=== PATIENT | male | born 1965 | race Caucasian/White ===

== ENCOUNTER 2019-08-20 00:10 | Emergency (ER) | payer MEDICARE, MEDICAID, SELFPAY ==
--- NOTE | 2019-08-20 00:11 | ED_ITS ---
Entered by Madeline Cloud, acting as scribe for Siomara Chatman HPI - Chest Pain General: Chief Complaint: Chest Pain Stated Complaint: chronic back pain, chest pain, sob, etoh on baord Time Seen by Provider: 08/20/19 00:14 Source: patient Mode of arrival: EMS Limitations: no limitations History of Present Illness: HPI narrative: 54 yo m came to the er by [facility]. complaint: chest pain Associated symptoms: Deny abdominal pain, diaphoresis, dyspnea, fever(s), nausea, palpitations, syncope or vomiting Review of Systems General: Reports: other (negative unless marked) Const: Denies: fever, chills, body aches, fatigue, malaise or diaphoresis Eyes: Denies: change in vision or blurry vision ENMT: Denies: throat pain, painful swallowing, hoarseness, ear pain, ear discharge, Change in hearing or nasal discharge Card: Denies: chest pain, palpitations, irregular heart rhythm, syncope, pre- syncope, shortness of breath on exertion or shortness of breath when lying down Resp: Denies: shortness of breath, productive cough, non-productive cough, wheezing, coughing up blood or chest congestion GI: Denies: abdominal pain, nausea, vomiting, vomiting blood, coffee grounds in vomit, diarrhea, constipation, cramping, blood in stool or black tarry stool : Denies: flank pain, difficulty urinating, painful urination, urinary frequency, urinary urgency, decreased urine ouput, urinary incontinence or blood in urine Musc: Denies: neck pain, back pain, extremity pain, extremity swelling, joint pain, joint swelling, joint warmth or joint stiffness Skin/Breast: Denies: rash, skin tenderness or yellow skin Neuro: Denies: headache, numbness in extremities, weakness in extremities, changes in sensation, lack of coordination, difficulty walking, dizziness, vertigo or confusion Endo: Denies: excessive thirst, tired all the time, cold intolerance, excessive sweating, flushing or hot flashes Anirudh/Lymph: Denies: easy bruising, easy bleeding, petechiae or enlarged lymph nodes All/Imm: Denies: hives, throat swelling, tongue swelling, facial swelling or acute wheezing PFSH ED PFSH: Statuses (acute, chronic, etc) shown below reflect problem list status as previously entered and may not be historically accurate Social History Smoking and tobacco status: current every day smoker Physical Exam Const: COMMON NORMALS: no apparent distress, oriented x3, no limitations, healthy appearing and well nourished EXAM LIMITATIONS: no altered mental status GENERAL APPEARANCE: cooperative, well kempt and well developed ORIENTATION/CONSCIOUSNESS: Yes awake HENMT: COMMON NORMALS: normocephalic, head/scalp atraumatic, hearing grossly normal bilaterally, external ears normal, EAC's normal, external nose normal and moist oral mucous membranes HEAD & SCALP: normal to inspection, normocephalic and atraumatic FACE & SINUS: normal facial exam and face symmetric NOSE: external nose normal and nares normal EXTERNAL EAR: Yes external ears normal EXTERNAL AUDITORY CANAL: EAC's normal MOUTH: oral and palatal mucosa normal and tongue normal Eye: COMMON NORMALS: PERRL, EOMs intact bilaterally, conjunctivae normal and no scleral icterus GENERAL EYE: normal appearance of both eyes and normal light reflex CONJUNCTIVA: Yes conjunctivae normal SCLERA: sclerae normal CORNEA: Yes corneas normal PUPIL: Yes PERRL DIRECT OPHTHALMOSCOPY: Yes normal light reflex Neck/C-Spine: COMMON NORMALS: full ROM, no lymphadenopathy, supple, no meningeal signs and no JVD GENERAL: Yes normal visual inspection and Yes trachea midline CERVICAL SPINE: Yes cervical ROM normal Chest: COMMONS NORMALS: inspection of chest normal and palpation of chest normal Resp: COMMON NORMALS: normal respiratory effort, no retractions, no use of accessory muscles and clear to auscultation bilaterally EFFORT & INSPECTION: Yes able to speak in complete sentences AUSCULTATION: clear to auscultation bilaterally Cardio: COMMON NORMALS: no JVD, regular rate, regular rhythm, S1 normal heart sound, S2 normal heart sound, no gallops, no clicks, no murmurs and no rub JUGULAR VENOUS DISTENTION: no JVD RATE: regular rate RHYTHM: regular rhythm HEART SOUNDS: S1 normal and S2 normal GI: COMMON NORMALS: soft to palpation, non-tender, no hepatosplenomegaly and no masses INSPECTION: Yes normal to inspection PALPATION: Yes soft and Yes no hepatosplenomegaly : COMMON NORMALS: Yes no CVA tenderness BLADDER/KIDNEY EXAM: Yes no CVA tenderness Back/Pelvis: COMMON NORMALS: no CVA tenderness, thoracic and lumbar spine normal to inspection, no thoracic nor lumbar tenderness and thoraco-lumbar ROM normal Extremity: COMMON NORMALS: normal to inspection, full ROM, normal capillary refill, no joint enlargement, no clubbing, cyanosis or edema and no calf tenderness Neuro: COMMON NORMALS: oriented x3, CN's II-XII intact bilaterally, moves all extremities, no focal motor deficits and no sensory deficits noted MENINGEAL SIGNS: Yes no meningeal signs Psych: COMMON NORMALS: mental status grossly normal, thought process normal, cooperative, affect normal, speech normal and activity/motor behavior normal APPEARANCE: Yes well kempt SPEECH: Yes normal speech THOUGHT PROCESS: normal thought process Skin: COMMON NORMALS: no rashes or lesions noted, skin turgor normal, no jau ndice, no petechiae and no mottling GENERAL SKIN EXAM: no rashes or lesions noted and turgor normal Course Vital Signs: Vital signs: Vital Signs Temperature 97.8 F 08/20/19 00:15 Pulse Rate 78 08/20/19 01:23 Respiratory Rate 16 08/20/19 01:23 Blood Pressure 98/78 08/20/19 01:23 Pulse Oximetry 94 08/20/19 01:23 Discharge Plan Discharge Patient Disposition: Home, Self-Care Clinical Impression: Low back pain Qualifiers: Chronicity: chronic Back pain laterality: midline Sciatica presence: without sciatica Qualified Code(s): M54.5 - Low back pain Condition: Stable Discharge Orders: Discharge Order (Routine); Ordered 08/20/19 Ordered By: Shola Benjamin Discharge Diet: Usual diet Discharge Activity: Increase activity as tolerated Patient Instructions: Chronic Back Pain (ED) Activity Restrictions/Additional Instructions: Follow-up with medical provider as directed. Return to the ER or your medical provider if condition worsens. Please read and understand discharge instructions. If any questions ask please. Discharge Date/Time: 08/20/19 01:25 Coding Level of Care Code ED Oxyacetylene Torch Operator for Gabriel Mortensen The documentation recorded by the Pedro Luis mccarthy Stephanie Lyn, accurately reflects the service I personally performed and the decisions made by Lurdes lomeli Eli N Aug 20, 2019 00:10
[2019-08-20 00:15] VITALS: BP 76/48; PULSE 94; RESP 16; TEMP 36.6; O2SAT 96; BMI 30.8
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
[2019-08-20 00:36] VITALS: BP 98/68; PULSE 87; RESP 16; O2SAT 94
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
[2019-08-20] MEDS: ketorolac 60 mg/2 mL INJ IM (00:56)
[2019-08-20] MEDS: sodium chloride 0.9% 1,000 ML 999 ML IV (00:58)
[2019-08-20 01:23] VITALS: BP 98/78; PULSE 78; RESP 16; O2SAT 94
== END 2019-08-20 01:25 | disposition home or self-care (01) ==
PROVIDERS: Emergency Provider Nurse Practitioner Family
DX: G89.29 Other chronic pain (principal); M54.5 Low back pain; F17.210 Nicotine dependence, cigarettes, uncomplicated
CPT/HCPCS: 72100; 96372; 99282; 99284; J1885; J7030

== ENCOUNTER 2019-09-21 17:39 | Emergency (ER) | payer MEDICARE, MEDICAID, SELFPAY ==
[2019-09-21 18:21] VITALS: BP 130/89; PULSE 99; RESP 18; TEMP 37.2; O2SAT 97; BMI 29.1
--- NOTE | 2019-09-21 20:09 | ED_ITS ---
Entered by Veronica Hernadez, acting as scribe for Remedios Cruz MD Sep 21, 2019 17:39 HPI - General Adult General: Chief complaint: General Medical Stated complaint: FLU Time Seen by Provider: 09/21/19 20:09 Source: patient and RN notes reviewed Mode of arrival: EMS Limitations: no limitations History of Present Illness: HPI narrative: 54 yo male presents to ED with complaints of flu-like symptoms. The patient said he has been sick for 5-6 days with a cough and some vomiting. He said he can't see his PCP until next . complaint: flu-like symptoms Onset (ago): day(s) (-) Location: chest (congestion) Radiation: non-radiation Severity: mild Quality: other (congestion) Pain Consistency: intermittent Relieving factors: none Exacerbating factors: none Associated symptoms: Reports vomiting; Deny chest pain, dyspnea, headache(s) or rash Treatments prior to arrival: none Review of Systems Const: Denies: fever, chills, body aches or change in appetite Eyes: Denies: blurry vision or eye discomfort ENMT: Denies: throat pain or dental pain Card: Denies: chest pain Resp: Denies: shortness of breath GI: Reports: vomiting : Denies: painful urination Musc: Denies: neck pain or back pain Skin/Breast: Denies: rash Neuro: Denies: headache Psych: Denies: depression Anirudh/Lymph: Denies: easy bruising All/Imm: Denies: hives PFSH ED PFSH: Social History Smoking and tobacco status: current every day smoker Physical Exam Const: COMMON NORMALS: no apparent distress, oriented x3 and healthy appearing HENMT: COMMON NORMALS: normocephalic and head/scalp atraumatic HEAD & SCALP: normocephalic and atraumatic Eye: COMMON NORMALS: PERRL and EOMs intact bilaterally PUPIL: Yes PERRL Neck/C-Spine: COMMON NORMALS: full ROM and supple Chest: COMMONS NORMALS: inspection of chest normal and palpation of chest normal Resp: COMMON NORMALS: normal respiratory effort, no retractions, no use of accessory muscles and clear to auscultation bilaterally AUSCULTATION: clear to auscultation bilaterally Cardio: COMMON NORMALS: regular rate, regular rhythm and no murmurs RATE: regular rate RHYTHM: regular rhythm GI: COMMON NORMALS: normal to inspection, nondistended, normoactive bowel sounds, soft to palpation, non-tender and no masses PALPATION: Yes soft Extremity: COMMON NORMALS: normal to inspection and full ROM Neuro: COMMON NORMALS: oriented x3, moves all extremities and no focal motor deficits Psych: COMMON NORMALS: mental status grossly normal, thought process normal and cooperative THOUGHT PROCESS: normal thought process Skin: COMMON NORMALS: no rashes or lesions noted and no wounds GENERAL SKIN EXAM: no rashes or lesions noted Course Vital Signs: Vital signs: Vital Signs Temperature 98.9 F 09/21/19 18:21 Pulse Rate 99 09/21/19 18:21 Respiratory Rate 18 09/21/19 18:21 Blood Pressure 130/89 09/21/19 18:21 Pulse Oximetry 97 09/21/19 18:21 MDM - General Adult MDM Narrative: Medical decision making narrative: Sam presents with cough and congestion. This is likely viral in origin and x-ray here is negative. He has no signs of pneumonia. Flu is negative as well. Patient is stable for discharge and is to follow-up with primary care doctor in 3 to 5 days and return if worsening. Lab Data: Labs: Lab Results 09/21/19 Range/Units 20:10 Influenza Type A A g Negative (Negative) POC Influenza B Ag Negative (Negative) Imaging Data^: CXR: Attestation: I personally reviewed and interpreted this imaging study as follows: My impression: no acute abnormality Discharge Plan Discharge Patient Disposition: Home, Self-Care Clinical Impression: URI (upper respiratory infection) Qualifiers: URI type: unspecified URI Qualified Code(s): J06.9 - Acute upper respiratory infection, unspecified Condition: Stable Discharge Orders: Discharge Order (Routine); Ordered 09/21/19 Ordered By: Remedios Cruz Discharge Diet: Advance as tolerated Discharge Activity: Resume usual activity Patient Instructions: Upper Respiratory Infection (ED) Coding Level of Care Code ED [employer] Salesperson for Chg Fwd Exam Comprehensive The documentation recorded by the Satya mccarthy Valerie R, accurately reflects the service I personally performed and the decisions made by Anthony lomeli Korby, MD Sep 21, 2019 17:39
--- NOTE | 2019-09-21 20:14 | XRR_ITS ---
PROCEDURE INFORMATION: Exam: XR Chest, 2 Views Exam date and time: 09/21/2019 8:41 PM Age: 54 years old Clinical indication: Chest pain; Additional info: Cp TECHNIQUE: Imaging protocol: XR of the chest Views: 2 views. COMPARISON: CR Chest 1 [place] [id number] 03/09/2019 12:44 AM FINDINGS: Lungs: Still unremarkable. No consolidation. Pleural space: Unremarkable. No pleural effusion. No pneumothorax. Heart/Mediastinum: Still no cardiomegaly. Bones/joints: Old compression fractures. Degeneration of several discs. Only 11 ribs still evident bilaterally. One old right rib fracture still conceivable. XR/XR chest 2V* [id number] IMPRESSION: No acute findings.
[2019-09-21] MEDS: ondansetron 4 MG Tablet PO (20:38)
[2019-09-21 20:39] LABS: Influenza A by IFA Negative (Negative); Influenza B by IFA Negative (Negative)
[2019-09-21 20:41] VITALS: BP 111/74; PULSE 94; RESP 18; TEMP 36.7; O2SAT 98
--- NOTE | 2019-09-21 21:38 | PC.NURSE ---
RN reviewed and agrees with assessment
== END 2019-09-21 21:07 | disposition home or self-care (01) ==
PROVIDERS: Emergency Provider Emergency Medicine
DX: J06.9 Acute upper respiratory infection, unspecified (principal); F17.200 Nicotine dependence, unspecified, uncomplicated
CPT/HCPCS: 71046; 87804; 99281; 99283; Q0162

== ENCOUNTER 2019-09-28 15:36 | Inpatient (IN) | payer MEDICARE, MEDICAID, SELFPAY ==
[2019-09-28] VITALS (76 sets, daily range): BP systolic 72–143; BP diastolic 59–94; PULSE 100–118; RESP 2–38; TEMP 36.6–37.2; O2SAT 70–100; BMI 31.1; BMI 30.5
--- NOTE | 2019-09-28 15:39 | ED_ITS ---
Entered by Veronica Hernadez, acting as scribe for HPI - Altered Mental Status General: Chief Complaint: Altered Mental Status Stated Complaint: AMS Time Seen by Provider: 09/28/19 15:42 Source: patient, EMS and RN notes reviewed Mode of arrival: EMS Limitations: altered mental status History of Present Illness: HPI narrative: 54 yo male presents to ED via EMS and it is reported that the patient was unresponsive per spouse. The spouse told EMS the patient has been laying in bed for 3 days. EMS stated the patient opened his eyes and stood up for them. EMS states the patient's glucose was 171 and is O2 was low, in 60's. The patient can state where he is ([facility]) and what town he is in ([place]) and the year (2019). He denies taking too much medication. MD complaint: altered mental status Onset (ago): day(s) (3) Timing confirmed by: other (EMS) Severity: severe Consistency of symptoms: Waxing and Waning Context: change in medication Treatments prior to arrival: oxygen Review of Systems General: Reports: ROS unobtainable due to mental status PFSH ED PFSH: Social History Smoking and tobacco status: current every day smoker Physical Exam Const: EXAM LIMITATIONS: altered mental status GENERAL APPEARANCE: cooperative, disheveled, lethargic and ill appearing NUTRITIONAL APPEARANCE: overweight ORIENTATION/CONSCIOUSNESS: Yes awake, Yes oriented to person and Yes lethargic HENMT: COMMON NORMALS: normocephalic, head/scalp atraumatic, hearing grossly normal bilaterally, external ears normal, EAC's normal, external nose normal and moist oral mucous membranes HEAD & SCALP: normal to inspection, normocephalic and atraumatic FACE & SINUS: normal facial exam and face symmetric NOSE: external nose normal and nares normal EXTERNAL EAR: Yes external ears normal EXTERNAL AUDITORY CANAL: EAC's normal MOUTH: oral and palatal mucosa normal and tongue normal Eye: COMMON NORMALS: PERRL, EOMs intact bilaterally, conjunctivae normal and no scleral icterus GENERAL EYE: normal appearance of both eyes and normal light reflex CONJUNCTIVA: Yes conjunctivae normal SCLERA: sclerae normal CORNEA: Yes corneas normal PUPIL: Yes PERRL DIRECT OPHTHALMOSCOPY: Yes normal light reflex Neck/C-Spine: COMMON NORMALS: full ROM, no lymphadenopathy, supple, no meningeal signs and no JVD GENERAL: Yes normal visual inspection and Yes trachea midline CERVICAL SPINE: Yes cervical ROM normal Chest: COMMONS NORMALS: inspection of chest normal and palpation of chest normal Resp: COMMON NORMALS: normal respiratory effort, no retractions, no use of accessory muscles and clear to auscultation bilaterally EFFORT & INSPECTION: Yes able to speak in complete sentences AUSCULTATION: clear to auscultation bilaterally Cardio: COMMON NORMALS: no JVD, regular rate, regular rhythm, S1 normal heart sound, S2 normal heart sound, no gallops, no clicks, no murmurs and no rub JUGULAR VENOUS DISTENTION: no JVD RATE: regular rate RHYTHM: regular rhythm HEART SOUNDS: S1 normal and S2 normal GI: COMMON NORMALS: soft to palpation, non-tender, no hepatosplenomegaly and no masses INSPECTION: Yes normal to inspection PALPATION: Yes soft and Yes no hepatosplenomegaly : COMMON NORMALS: Yes no CVA tenderness BLADDER/KIDNEY EXAM: Yes no CVA tenderness Back/Pelvis: COMMON NORMALS: no CVA tenderness, thoracic and lumbar spine normal to inspection, no thoracic nor lumbar tenderness and thoraco-lumbar ROM normal Extremity: COMMON NORMALS: normal to inspection, full ROM, normal capillary refill, no joint enlargement, no clubbing, cyanosis or edema and no calf tenderness Neuro: JULIANNA COMA SCALE: document GCS findings Lambert coma scale eye opening: To sound Lambert coma scale verbal response: Confused Lambert coma scale motor response: Obey commands Lambert coma scale total score: 13 COMMON NORMALS: CN's II-XII intact bilaterally, moves all extremities, no focal motor deficits and no sensory deficits noted SENSORIUM/ORIENTATION: Yes oriented to person and Yes lethargic MENINGEAL SIGNS: Yes no meningeal signs Psych: COMMON NORMALS: mental status grossly normal, thought process normal, cooperative, affect normal, speech normal and activity/motor behavior normal SPEECH: Yes normal speech THOUGHT PROCESS: normal thought process Skin: COMMON NORMALS: no rashes or lesions noted, skin turgor normal, no jaund ice, no petechiae and no mottling GENERAL SKIN EXAM: no rashes or lesions noted and turgor normal Course Reevaluation(s): Reevaluation #1: Yakelin/significant other, is now adding to her story stating the patient has taken 60 Xanax tablets within the last 2 days. She states some of the tablets were .5mg and some were 1mg. Time: 16:23 Reevaluation #2: Discussed case with Dr Shafer who agrees to hold off on intubation for now. Time: 16:25 Vital Signs: Vital signs: Vital Signs Temperature 98.9 F 09/28/19 16:20 Pulse Rate 112 H 09/28/19 18:48 Respiratory Rate 16 09/28/19 18:48 Blood Pressure 122/75 09/28/19 18:48 Pulse Oximetry 100 09/28/19 18:48 MDM - Altered Mental Status MDM Narrative: Medical decision making narrative: Sam is a 54-year-old male well-known to me who presents to the ER with altered mental status. Further history was obtained from his who stated that he has new prescriptions of multiple types of sedative medications and he is also been taking medicines that are not prescribed to him such as Xanax. It is believed the patient may have overdosed on a combination of these medications. His CT does show though that he has infection which could be caused by aspiration. The patient is hemodynamically stable except for a mild tachycardia and has been given a sepsis fluid bolus and IV Zosyn and vancomycin. He is maintaining his oxygenation on BiPAP and is improving with his mentation. The case was reviewed in full with Dr. Shafer she is agreeable to admission. Lab Data: Attestation: I reviewed the patient's lab results. Labs: Lab Results 09/28/19 09/28/19 09/28/19 Range/Units 16:08 16:08 16:08 WBC 13.1 H (4.0-10.0) 10^3/ uL RBC 3.78 L (4.1-5.3) 10^6/u L Hgb 12.1 (11.7-16.6) g/dL Hct 37.8 L (42.0-52.0) % MCV 100.0 H (80-94) fL MCH 32.0 (28.0-34.0) pg MCHC 32.0 (30.0-36.0) g/dL RDW 13.4 (12.1-15.1) % Plt Count 176 (130-400) 10^3/c mm MPV 10.4 (7.4-10.4) fL Neut % (Auto) 87.9 % Lymph % (Auto) 4.6 % Nolan % (Auto) 6.0 % Eos % (Auto) 0.2 % Baso % (Auto) 0.4 % Neut # (Auto) 11.5 H (1.8-7.7) 10^3/u L Lymph # (Auto) 0.6 L (0.8-4.8) 10^3/u L Nolan # (Auto) 0.8 (0.2-0.9) 10^3/u L Eos # (Auto) 0.0 (0.0-0.8) 10^3/u L Baso # (Auto) 0.1 (0.0-0.1) 10^3/u L Nucleated RBC % (a uto) 0 % Nucleated RBCs # 0.0 /100WBC PT (10.5-13.3) SECO NDS INR (0.8-1.2) Specimen Type Sample Site ABG pH (7.35-7.45) ABG pCO2 (35-45) mmHg ABG pO2 (80.0-100.0) mmH g ABG HCO3 (22-26) mmol/L ABG Base Excess (-2.0-2.0) mmol/ L Jacques Test Hematocrit (42-52) % O2 Delivery Device FiO2 % Dials Supervisor ID Sodium 134 L (136-145) mmol/L Potassium 3.8 (3.5-5.1) mmol/L Chloride 97 L (98-107) mmol/L Carbon Dioxide 29 (22-29) mmol/L Anion Gap 11.8 (5-19) BUN 25 H (6-20) mg/dL Creatinine 1.1 (0.7-1.2) mg/dL GFR Calculation 69.2 L (90-130) mL/min Glucose 140 H (65-115) mg/dL POC Glucose (70-110) mg/dL Lactic Acid 1.5 (0.5-2.2) mmol/L Calcium 8.5 (8.5-10.5) mg/dL Magnesium 2.0 (1.7-2.3) mg/dL Total Bilirubin 0.4 (0.15-1.2) mg/dL AST 14 (0-40) U/L ALT 10 (0-41) U/L Alkaline Phosphata se 95 (40-130) IU/L Ammonia (16-60) umol/L Creatine Kinase 77 (39-308) U/L Troponin T Baselin e (0-15) ng/mL NT-Pro-B Natriuret Pep 801 H (0-125) pg/mL Total Protein 5.8 L (6.6-8.7) g/dL Albumin 3.3 L (3.5-5.2) g/dL Globulin 2.5 (1.3-4.6) g/dL Lipase 9 L (13-60) U/L Urine Color (Yellow) Urine Appearance (CLEAR) Urine pH (5-7) Ur Specific Gravit y (1.005-1.030) Urine Protein (Negative) Urine Glucose (UA) (Normal) Urine Ketones (Negative) Urine Blood (Negative) Urine Nitrate (Negative) Urine Bilirubin (NEGATIVE) Urine Urobilinogen (Negative) mg/dL Ur Leukocyte Bonnie ase (Negative) Urine RBC (0-2) /hpf Urine WBC (0-5) /hpf Ur Squamous Epith Cells (0-5) Urine Bacteria (NONE) Urine Mucus Salicylates < 0.3 L (3-10) mg/dL Urine Opiates Scre en (Negative) ng/mL Acetaminophen < 5.0 L (10-30) ug/mL Ur Barbiturates Sc reen (Negative) ng/mL Phenytoin 0.8 L (10-20) ug/mL Valproic Acid 2.8 L (50-100) mcg/mL Carbamazepine 2.0 L (4.0-12.0) ug/mL Ur Phencyclidine S crn (Negative) ng/mL Ur Amphetamines Sc reen (Negative) ng/mL U Benzodiazepines Scrn (Negative) ng/mL [place] (0.6-1.2) mmol/L Urine Cocaine Scre en (Negative) ng/mL U Marijuana (THC) Screen (Negative) ng/mL Ethyl Alcohol < 10 (0-10) mg/dL Serum Ketones (Negative) Influenza Type A A g (Negative) POC Influenza B Ag (Negative) 09/28/19 09/28/19 09/28/19 Range/Units 16:08 16:08 16:08 WBC (4.0-10.0) 10^3/ uL RBC (4.1-5.3) 10^6/u L Hgb (11.7-16.6) g/dL Hct (42.0-52.0) % MCV (80-94) fL MCH (28.0-34.0) pg MCHC (30.0-36.0) g/dL RDW (12.1-15.1) % Plt Count (130-400) 10^3/c mm MPV (7.4-10.4) fL Neut % (Auto) % Lymph % (Auto) % Nolan % (Auto) % Eos % (Auto) % Baso % (Auto) % Neut # (Auto) (1.8-7.7) 10^3/u L Lymph # (Auto) (0.8-4.8) 10^3/u L Nolan # (Auto) (0.2-0.9) 10^3/u L Eos # (Auto) (0.0-0.8) 10^3/u L Baso # (Auto) (0.0-0.1) 10^3/u L Nucleated RBC % (a uto) % Nucleated RBCs # /100WBC PT 13.30 (10.5-13.3) SECO NDS INR 0.98 (0.8-1.2) Specimen Type Sample Site ABG pH (7.35-7.45) ABG pCO2 (35-45) mmHg ABG pO2 (80.0-100.0) mmH g ABG HCO3 (22-26) mmol/L ABG Base Excess (-2.0-2.0) mmol/ L Jacques Test Hematocrit (42-52) % O2 Delivery Device FiO2 % Dials Supervisor ID Sodium (136-145) mmol/L Potassium (3.5-5.1) mmol/L Chloride (98-107) mmol/L Carbon Dioxide (22-29) mmol/L Anion Gap (5-19) BUN (6-20) mg/dL Creatinine (0.7-1.2) mg/dL GFR Calculation (90-130) mL/min Glucose (65-115) mg/dL POC Glucose (70-110) mg/dL Lactic Acid (0.5-2.2) mmol/L Calcium (8.5-10.5) mg/dL Magnesium (1.7-2.3) mg/dL Total Bilirubin (0.15-1.2) mg/dL AST (0-40) U/L ALT (0-41) U/L Alkaline Phosphata se (40-130) IU/L Ammonia 21 (16-60) umol/L Creatine Kinase (39-308) U/L Troponin T Baselin e (0-15) ng/mL NT-Pro-B Natriuret Pep (0-125) pg/mL Total Protein (6.6-8.7) g/dL Albumin (3.5-5.2) g/dL Globulin (1.3-4.6) g/dL Lipase (13-60) U/L Urine Color (Yellow) Urine Appearance (CLEAR) Urine pH (5-7) Ur Specific Gravit y (1.005-1.030) Urine Protein (Negative) Urine Glucose (UA) (Normal) Urine Ketones (Negative) Urine Blood (Negative) Urine Nitrate (Negative) Urine Bilirubin (NEGATIVE) Urine Urobilinogen (Negative) mg/dL Ur Leukocyte Bonnie ase (Negative) Urine RBC (0-2) /hpf Urine WBC (0-5) /hpf Ur Squamous Epith Cells (0-5) Urine Bacteria (NONE) Urine Mucus Salicylates (3-10) mg/dL Urine Opiates Scre en (Negative) ng/mL Acetaminophen (10-30) ug/mL Ur Barbiturates Sc reen (Negative) ng/mL Phenytoin (10-20) ug/mL Valproic Acid (50-100) mcg/mL Carbamazepine (4.0-12.0) ug/mL Ur Phencyclidine S crn (Negative) ng/mL Ur Amphetamines Sc reen (Negative) ng/mL U Benzodiazepines Scrn (Negative) ng/mL [place] (0.6-1.2) mmol/L Urine Cocaine Scre en (Negative) ng/mL U Marijuana (THC) Screen (Negative) ng/mL Ethyl Alcohol (0-10) mg/dL Serum Ketones Negative (Negative) Influenza Type A A g (Negative) POC Influenza B Ag (Negative) 09/28/19 09/28/19 09/28/19 Range/Units 16:08 16:08 16:10 WBC (4.0-10.0) 10^3/ uL RBC (4.1-5.3) 10^6/u L Hgb (11.7-16.6) g/dL Hct (42.0-52.0) % MCV (80-94) fL MCH (28.0-34.0) pg MCHC (30.0-36.0) g/dL RDW (12.1-15.1) % Plt Count (130-400) 10^3/c mm MPV (7.4-10.4) fL Neut % (Auto) % Lymph % (Auto) % Nolan % (Auto) % Eos % (Auto) % Baso % (Auto) % Neut # (Auto) (1.8-7.7) 10^3/u L Lymph # (Auto) (0.8-4.8) 10^3/u L Nolan # (Auto) (0.2-0.9) 10^3/u L Eos # (Auto) (0.0-0.8) 10^3/u L Baso # (Auto) (0.0-0.1) 10^3/u L Nucleated RBC % (a uto) % Nucleated RBCs # /100WBC PT (10.5-13.3) SECO NDS INR (0.8-1.2) Specimen Type Arterial Sample Site Radial, right ABG pH 7.33 L (7.35-7.45) ABG pCO2 53.8 H (35-45) mmHg ABG pO2 44.5 L (80.0-100.0) mmH g ABG HCO3 28.3 H (22-26) mmol/L ABG Base Excess 1.3 (-2.0-2.0) mmol/ L Jacques Test Pos Hematocrit 40.1 L (42-52) % O2 Delivery Device None FiO2 21.0 % Dials Supervisor ID ed Sodium (136-145) mmol/L Potassium (3.5-5.1) mmol/L Chloride (98-107) mmol/L Carbon Dioxide (22-29) mmol/L Anion Gap (5-19) BUN (6-20) mg/dL Creatinine (0.7-1.2) mg/dL GFR Calculation (90-130) mL/min Glucose (65-115) mg/dL POC Glucose (70-110) mg/dL Lactic Acid (0.5-2.2) mmol/L Calcium (8.5-10.5) mg/dL Magnesium (1.7-2.3) mg/dL Total Bilirubin (0.15-1.2) mg/dL AST (0-40) U/L ALT (0-41) U/L Alkaline Phosphata se (40-130) IU/L Ammonia (16-60) umol/L Creatine Kinase (39-308) U/L Troponin T Baselin e 12 (0-15) ng/mL NT-Pro-B Natriuret Pep (0-125) pg/mL Total Protein (6.6-8.7) g/dL Albumin (3.5-5.2) g/dL Globulin (1.3-4.6) g/dL Lipase (13-60) U/L Urine Color (Yellow) Urine Appearance (CLEAR) Urine pH (5-7) Ur Specific Gravit y (1.005-1.030) Urine Protein (Negative) Urine Glucose (UA) (Normal) Urine Ketones (Negative) Urine Blood (Negative) Urine Nitrate (Negative) Urine Bilirubin (NEGATIVE) Urine Urobilinogen (Negative) mg/dL Ur Leukocyte Bonnie ase (Negative) Urine RBC (0-2) /hpf Urine WBC (0-5) /hpf Ur Squamous Epith Cells (0-5) Urine Bacteria (NONE) Urine Mucus Salicylates (3-10) mg/dL Urine Opiates Scre en (Negative) ng/mL Acetaminophen (10-30) ug/mL Ur Barbiturates Sc reen (Negative) ng/mL Phenytoin (10-20) ug/mL Valproic Acid (50-100) mcg/mL Carbamazepine (4.0-12.0) ug/mL Ur Phencyclidine S crn (Negative) ng/mL Ur Amphetamines Sc reen (Negative) ng/mL U Benzodiazepines Scrn (Negative) ng/mL [place] 0.1 L (0.6-1.2) mmol/L Urine Cocaine Scre en (Negative) ng/mL U Marijuana (THC) Screen (Negative) ng/mL Ethyl Alcohol (0-10) mg/dL Serum Ketones (Negative) Influenza Type A A g (Negative) POC Influenza B Ag (Negative) 09/28/19 09/28/19 09/28/19 Range/Units 16:28 16:28 16:28 WBC (4.0-10.0) 10^3/ uL RBC (4.1-5.3) 10^6/u L Hgb (11.7-16.6) g/dL Hct (42.0-52.0) % MCV (80-94) fL MCH (28.0-34.0) pg MCHC (30.0-36.0) g/dL RDW (12.1-15.1) % Plt Count (130-400) 10^3/c mm MPV (7.4-10.4) fL Neut % (Auto) % Lymph % (Auto) % Nolan % (Auto) % Eos % (Auto) % Baso % (Auto) % Neut # (Auto) (1.8-7.7) 10^3/u L Lymph # (Auto) (0.8-4.8) 10^3/u L Nolan # (Auto) (0.2-0.9) 10^3/u L Eos # (Auto) (0.0-0.8) 10^3/u L Baso # (Auto) (0.0-0.1) 10^3/u L Nucleated RBC % (a uto) % Nucleated RBCs # /100WBC PT (10.5-13.3) SECO NDS INR (0.8-1.2) Specimen Type Sample Site ABG pH (7.35-7.45) ABG pCO2 (35-45) mmHg ABG pO2 (80.0-100.0) mmH g ABG HCO3 (22-26) mmol/L ABG Base Excess (-2.0-2.0) mmol/ L Jacques Test Hematocrit (42-52) % O2 Delivery Device FiO2 % Dials Supervisor ID Sodium (136-145) mmol/L Potassium (3.5-5.1) mmol/L Chloride (98-107) mmol/L Carbon Dioxide (22-29) mmol/L Anion Gap (5-19) BUN (6-20) mg/dL Creatinine (0.7-1.2) mg/dL GFR Calculation (90-130) mL/min Glucose (65-115) mg/dL POC Glucose (70-110) mg/dL Lactic Acid (0.5-2.2) mmol/L Calcium (8.5-10.5) mg/dL Magnesium (1.7-2.3) mg/dL Total Bilirubin (0.15-1.2) mg/dL AST (0-40) U/L ALT (0-41) U/L Alkaline Phosphata se (40-130) IU/L Ammonia (16-60) umol/L Creatine Kinase (39-308) U/L Troponin T Baselin e (0-15) ng/mL NT-Pro-B Natriuret Pep (0-125) pg/mL Total Protein (6.6-8.7) g/dL Albumin (3.5-5.2) g/dL Globulin (1.3-4.6) g/dL Lipase (13-60) U/L Urine Color Yellow (Yellow) Urine Appearance Clear (CLEAR) Urine pH 5.0 (5-7) Ur Specific Gravit y 1.020 (1.005-1.030) Urine Protein Neg (Negative) Urine Glucose (UA) Norm (Normal) Urine Ketones Negative (Negative) Urine Blood Neg (Negative) Urine Nitrate Negative (Negative) Urine Bilirubin Neg (NEGATIVE) Urine Urobilinogen Norm (Negative) mg/dL Ur Leukocyte Bonnie ase Negative (Negative) Urine RBC None (0-2) /hpf Urine WBC None (0-5) /hpf Ur Squamous Epith Cells 0-4 H (0-5) Urine Bacteria Trace (NONE) Urine Mucus 1+ Salicylates (3-10) mg/dL Urine Opiates Scre en Negative (Negative) ng/mL Acetaminophen (10-30) ug/mL Ur Barbiturates Sc reen Negative (Negative) ng/mL Phenytoin (10-20) ug/mL Valproic Acid (50-100) mcg/mL Carbamazepine (4.0-12.0) ug/mL Ur Phencyclidine S crn Negative (Negative) ng/mL Ur Amphetamines Sc reen Negative (Negative) ng/mL U Benzodiazepines Scrn Positive H (Negative) ng/mL [place] (0.6-1.2) mmol/L Urine Cocaine Scre en Negative (Negative) ng/mL U Marijuana (THC) Screen Negative (Negative) ng/mL Ethyl Alcohol (0-10) mg/dL Serum Ketones (Negative) Influenza Type A A g Negative (Negative) POC Influenza B Ag Negative (Negative) 09/28/19 09/28/19 09/28/19 Range/Units 16:48 17:06 17:30 WBC (4.0-10.0) 10^3/ uL RBC (4.1-5.3) 10^6/u L Hgb (11.7-16.6) g/dL Hct (42.0-52.0) % MCV (80-94) fL MCH (28.0-34.0) pg MCHC (30.0-36.0) g/dL RDW (12.1-15.1) % Plt Count (130-400) 10^3/c mm MPV (7.4-10.4) fL Neut % (Auto) % Lymph % (Auto) % Nolan % (Auto) % Eos % (Auto) % Baso % (Auto) % Neut # (Auto) (1.8-7.7) 10^3/u L Lymph # (Auto) (0.8-4.8) 10^3/u L Nolan # (Auto) (0.2-0.9) 10^3/u L Eos # (Auto) (0.0-0.8) 10^3/u L Baso # (Auto) (0.0-0.1) 10^3/u L Nucleated RBC % (a uto) % Nucleated RBCs # /100WBC PT (10.5-13.3) SECO NDS INR (0.8-1.2) Specimen Type Arterial Arterial Sample Site Radial, right Radial, left ABG pH 7.34 L 7.32 L (7.35-7.45) ABG pCO2 48.2 H 50.6 H (35-45) mmHg ABG pO2 54.0 L 66.5 L (80.0-100.0) mmH g ABG HCO3 25.8 26.1 H (22-26) mmol/L ABG Base Excess -0.5 -0.6 (-2.0-2.0) mmol/ L Jacques Test Pos Pos Hematocrit 39.4 L 38.4 L (42-52) % O2 Delivery Device Bipap Bipap FiO2 24.0 60.0 % Dials Supervisor ID hin ed Sodium (136-145) mmol/L Potassium (3.5-5.1) mmol/L Chloride (98-107) mmol/L Carbon Dioxide (22-29) mmol/L Anion Gap (5-19) BUN (6-20) mg/dL Creatinine (0.7-1.2) mg/dL GFR Calculation (90-130) mL/min Glucose (65-115) mg/dL POC Glucose 128 (70-110) mg/dL Lactic Acid (0.5-2.2) mmol/L Calcium (8.5-10.5) mg/dL Magnesium (1.7-2.3) mg/dL Total Bilirubin (0.15-1.2) mg/dL AST (0-40) U/L ALT (0-41) U/L Alkaline Phosphata se (40-130) IU/L Ammonia (16-60) umol/L Creatine Kinase (39-308) U/L Troponin T Baselin e (0-15) ng/mL NT-Pro-B Natriuret Pep (0-125) pg/mL Total Protein (6.6-8.7) g/dL Albumin (3.5-5.2) g/dL Globulin (1.3-4.6) g/dL Lipase (13-60) U/L Urine Color (Yellow) Urine Appearance (CLEAR) Urine pH (5-7) Ur Specific Gravit y (1.005-1.030) Urine Protein (Negative) Urine Glucose (UA) (Normal) Urine Ketones (Negative) Urine Blood (Negative) Urine Nitrate (Negative) Urine Bilirubin (NEGATIVE) Urine Urobilinogen (Negative) mg/dL Ur Leukocyte Bonnie ase (Negative) Urine RBC (0-2) /hpf Urine WBC (0-5) /hpf Ur Squamous Epith Cells (0-5) Urine Bacteria (NONE) Urine Mucus Salicylates (3-10) mg/dL Urine Opiates Scre en (Negative) ng/mL Acetaminophen (10-30) ug/mL Ur Barbiturates Sc reen (Negative) ng/mL Phenytoin (10-20) ug/mL Valproic Acid (50-100) mcg/mL Carbamazepine (4.0-12.0) ug/mL Ur Phencyclidine S crn (Negative) ng/mL Ur Amphetamines Sc reen (Negative) ng/mL U Benzodiazepines Scrn (Negative) ng/mL [place] (0.6-1.2) mmol/L Urine Cocaine Scre en (Negative) ng/mL U Marijuana (THC) Screen (Negative) ng/mL Ethyl Alcohol (0-10) mg/dL Serum Ketones (Negative) Influenza Type A A g (Negative) POC Influenza B Ag (Negative) Imaging Data^: CT Head: Radiologist's impression: [address] [address] [address] Scan Report Signed Patient: Sam Marroquin #: [id number] : 1965Acct#:[id number] Age/Sex: 54 / MADM Date: 09/28/19 Loc: ERRoom/Bed: Attending Dr: Ordering Provider/Ordering MD: Siomara Chatman DO Date of Service: 09/28/19 Procedure(s): CT head wo con* [id number] Accession Number(s): [id number] Report Number: [id number] PROCEDURE INFORMATION: Exam: CT Head Without Contrast Exam date and time: 09/28/2019 4:30 PM Age: 54 years old Clinical indication: Altered mental status/memory loss; Additional info: Ruiz/ams non compliant patient TECHNIQUE: Imaging protocol: Computed tomography of the head without contrast. Total DLP: 721.7 mGy-cm Radiation optimization: All CT scans at this facility use at least one of these dose optimization techniques: automated exposure control; mA and/or kV adjustment per patient size (includes targeted exams where dose is matched to clinical indication); or iterative reconstruction. COMPARISON: CT head wo con* [id number] 02/26/2019 10:51 PM FINDINGS: Brain: Normal. No hemorrhage. Unremarkable white matter. No mass effect. Ventricles: Normal. No ventriculomegaly. Bones/joints: Unremarkable. No acute fracture. Sinuses: Evidence of mild chronic ethmoid and right maxillary sinusitis. No fluid levels. Mastoid air cells: Visualized mastoid air cells are well aerated. Soft tissues: Unremarkable. CT/CT head wo con* [id number] IMPRESSION: No acute intracranial abnormality. Radiation Dose CTDIVOL = (mGy): DLP = 721.7 (mGy-cm) Dictated By:Aric Dimas Signed By:Reilly Dimas Date/Time:09/28/19 1708 DD/ CTA Chest: Radiologist's impression: [address] [place] [address] CT Scan Report Signed Patient: Sam Marroquin #: [id number] : 1965Acct#:[id number] Age/Sex: 54 / MADM Date: 09/28/19 Loc: ERRoom/Bed: Attending Dr: Ordering Provider/Ordering MD: Siomara Chatman DO Date of Service: 09/28/19 Procedure(s): CT angio chest PE protcl [id number] Accession Number(s): [id number] Report Number: [id number] PROCEDURE INFORMATION: Exam: CT Angiography Chest With Contrast Exam date and time: 09/28/2019 4:30 PM Age: 54 years old Clinical indication: Shortness of breath; Additional info: Dyspnea, hypoxia TECHNIQUE: Imaging protocol: Computed tomographic angiography of the chest with intravenous contrast. 3D rendering: MIP and/or 3D reconstructed images were created by the technologist. Total DLP: 580.92 mGy-cm Radiation optimization: All CT scans at this facility use at least one of these dose optimization techniques: automated exposure control; mA and/or kV adjustment per patient size (includes targeted exams where dose is matched to clinical indication); or iterative reconstruction. Contrast material: OMNI 350; Contrast volume: 95 ml; Contrast route: RT AC; COMPARISON: CR XR chest 1V portable [id number] 09/28/2019 3:40 PM FINDINGS: Pulmonary arteries: No definitive evidence for pulmonary embolism this evaluation. Aorta: Thoracic aorta is nonaneurysmal. Lungs: Assessment of the lungs reveals patchy diffuse bilateral segmental and subsegmental mixed ground-glass interstitial and alveolar airspace disease of active pneumonitis/pneumonia. Greatest consolidation bilateral lower lobes. Pleural space: Scant bilateral pleural effusions. Heart: Unremarkable. No cardiomegaly. No pericardial effusion. Lymph nodes: Few marginally prominent aortopulmonic, pretracheal, anterior mediastinal, and hilar lymph nodes most likely reactive. Largest node in the pretracheal space measures 17 mm. Bones/joints: Unremarkable. No acute fracture. Soft tissues: Unremarkable. Other findings: Quantum mottle artifact limits detail assessment. Limited assessment of the upper abdomen and contents unremarkable. CT/CT angio chest PE protcl [id number] IMPRESSION: 1. No definitive evidence for pulmonary embolism this evaluation. 2. Bilateral pneumonitis/pneumonia greatest involvement bilateral lower lobes. 3. Reactive mediastinal and hilar lymph nodes. 4. Quantum mottle artifact limits detail assessment. Radiation Dose CTDIVOL = (mGy): DLP = 580.92 (mGy-cm) Dictated By:Aric Dimas Signed By:Aric DimasSigned Date/Time:09/28/19 1722 DD/ CXR: My impression: Diffuse infiltrates. Cardiomegaly. EKG Data^: EKG 1: Attestation: I personally reviewed and interpreted this EKG as follows: EKG interpretation date: 09/28/19 EKG interpretation time: 15:53 Interpretation: Sinus tachycardia at 102 beats a minute, left axis deviation, incomplete right bundle branch block, left anterior physical block, nonspecific ST and T wave changes. Similar to previous. Discharge Plan Discharge Patient Disposition: Admitted As Inpatient Admit Provider: Nai Shafer Clinical Impression: Altered mental status Qualifiers: Altered mental status type: somnolence Qualified Code(s): R40.0 - Somnolence Sepsis Qualifiers: Sepsis type: sepsis due to unspecified organism Sepsis acute organ dysfunction status: with acute organ dysfunction Severe sepsis acute organ dysfunction type: acute respiratory failure Acute respiratory failure type: with hypoxia Severe sepsis shock status: without septic shock Qualified Code(s): A41.9 - Sepsis, unspecified organism Pneumonia Qualifiers: Pneumonia type: due to unspecified organism Laterality: bilateral Lung location: unspecified part of lung Qualified Code(s): J18.9 - Pneumonia, unspecified organism Condition: Stable Discharge Date/Time: 09/28/19 18:49 Coding Level of Care Code ED Conversion Developer for Chg Fwd Exam Problem Focused The documentation recorded by the Satya mccarthy Valerie R, accurately reflects the service I personally performed and the decisions made by Lurdes lomeli Eli N Sep 28, 2019 15:36
--- NOTE | 2019-09-28 15:42 | CTR_ITS ---
PROCEDURE INFORMATION: Exam: CT Head Without Contrast Exam date and time: 09/28/2019 4:30 PM Age: 54 years old Clinical indication: Altered mental status/memory loss; Additional info: Ruiz/ams non compliant patient TECHNIQUE: Imaging protocol: Computed tomography of the head without contrast. Total DLP: 721.7 mGy-cm Radiation optimization: All CT scans at this facility use at least one of these dose optimization techniques: automated exposure control; mA and/or kV adjustment per patient size (includes targeted exams where dose is matched to clinical indication); or iterative reconstruction. COMPARISON: CT head wo con* [id number] 02/26/2019 10:51 PM FINDINGS: Brain: Normal. No hemorrhage. Unremarkable white matter. No mass effect. Ventricles: Normal. No ventriculomegaly. Bones/joints: Unremarkable. No acute fracture. Sinuses: Evidence of mild chronic ethmoid and right maxillary sinusitis. No fluid levels. Mastoid air cells: Visualized mastoid air cells are well aerated. Soft tissues: Unremarkable. CT/CT head wo con* [id number] IMPRESSION: No acute intracranial abnormality. Radiation Dose CTDIVOL = (mGy): DLP = 721.7 (mGy-cm)
--- NOTE | 2019-09-28 15:42 | XR_ITS ---
WS: [id number] XR chest 1V portable [id number] REASON FOR EXAM: cough FINDINGS: The right lung shows a groundglass configuration consistent with a viral pneumonia. The heart is not enlarged. The hilum and apices normal. No osseous abnormalities. XR/XR chest 1V portable [id number] IMPRESSION: Findings consistent with right viral pneumonia.
[2019-09-28] MEDS: ipratropium-albuterol 3 mL Neb 9 ML INHALATION (16:05)
[2019-09-28] MEDS: naloxone 0.4 mg/ml SDV ×2 (16:11)
[2019-09-28 16:21] LABS: ABG PCO2 53.8 mmHg (35-45); ABG PH Result 7.33 (7.35-7.45); Arterial Blood Gas Hematocrit 40.1 % (42-52); Base Excess ABG 1.3 mmol/L (-2.0-2.0); Blood Gas Allen Test Pos; Blood Gas Sample Site Radial, right; Blood Gas Sample Type Arterial; HCO3 ABG 28.3 mmol/L (22-26); PO2 ABG 44.5 mmHg (80.0-100.0)
--- NOTE | 2019-09-28 16:24 | CTR_ITS ---
PROCEDURE INFORMATION: Exam: CT Angiography Chest With Contrast Exam date and time: 09/28/2019 4:30 PM Age: 54 years old Clinical indication: Shortness of breath; Additional info: Dyspnea, hypoxia TECHNIQUE: Imaging protocol: Computed tomographic angiography of the chest with intravenous contrast. 3D rendering: MIP and/or 3D reconstructed images were created by the technologist. Total DLP: 580.92 mGy-cm Radiation optimization: All CT scans at this facility use at least one of these dose optimization techniques: automated exposure control; mA and/or kV adjustment per patient size (includes targeted exams where dose is matched to clinical indication); or iterative reconstruction. Contrast material: OMNI 350; Contrast volume: 95 ml; Contrast route: RT AC; COMPARISON: CR XR chest 1V portable [id number] 09/28/2019 3:40 PM FINDINGS: Pulmonary arteries: No definitive evidence for pulmonary embolism this evaluation. Aorta: Thoracic aorta is nonaneurysmal. Lungs: Assessment of the lungs reveals patchy diffuse bilateral segmental and subsegmental mixed ground-glass interstitial and alveolar airspace disease of active pneumonitis/pneumonia. Greatest consolidation bilateral lower lobes. Pleural space: Scant bilateral pleural effusions. Heart: Unremarkable. No cardiomegaly. No pericardial effusion. Lymph nodes: Few marginally prominent aortopulmonic, pretracheal, anterior mediastinal, and hilar lymph nodes most likely reactive. Largest node in the pretracheal space measures 17 mm. Bones/joints: Unremarkable. No acute fracture. Soft tissues: Unremarkable. Other findings: Quantum mottle artifact limits detail assessment. Limited assessment of the upper abdomen and contents unremarkable. CT/CT angio chest PE protcl [id number] IMPRESSION: 1. No definitive evidence for pulmonary embolism this evaluation. 2. Bilateral pneumonitis/pneumonia greatest involvement bilateral lower lobes. 3. Reactive mediastinal and hilar lymph nodes. 4. Quantum mottle artifact limits detail assessment. Radiation Dose CTDIVOL = (mGy): DLP = 580.92 (mGy-cm)
[2019-09-28 16:30] LABS: Basophils # 0.1 10^3/uL (0.0-0.1); Basophils % 0.4 %; Eosinophils % 0.2 %; Hematocrit 37.8 % (42.0-52.0); Hemoglobin 12.1 g/dL (11.7-16.6); Lymphocytes # 0.6 10^3/uL (0.8-4.8); Lymphocytes % 4.6 %; Mean Platelet Volume 10.4 fL (7.4-10.4); Monocytes # 0.8 10^3/uL (0.2-0.9); Neutrophils # 11.5 10^3/uL (1.8-7.7); Neutrophils % 87.9 %; Nucleated Red Blood Cells % 0 %; Platelet Count 176 10^3/cmm (130-400); Red Blood Count 3.78 10^6/uL (4.1-5.3); Red Cell Distribution Width 13.4 % (12.1-15.1); White Blood Count 13.1 10^3/uL (4.0-10.0)
[2019-09-28] MEDS: sodium chloride 0.9% 1,000 ML 100 ML IV ×2 (16:31→19:42)
[2019-09-28] MEDS: ondansetron 2 mg/ML SDV 2 mL 4 MG IVP (16:31)
[2019-09-28] MEDS: naloxone 0.4 mg/ml SDV IVP ×2 (16:32→17:12)
[2019-09-28] MEDS: sodium chloride 0.9% 1,000 ML 999 ML IV (16:35)
[2019-09-28 16:37] LABS: Ketone (Acetest) Serum Negative (Negative)
[2019-09-28 16:38] LABS: INR 0.98 (0.8-1.2)
[2019-09-28] MEDS: piperacillin-tazobactam 3.375 GM in sodium chloride 0.9% (plus) 50 ML IV (16:40)
[2019-09-28 16:45] LABS: Ammonia 21 umol/L (16-60); Lactic Sepsis W/Reflex 1.5 mmol/L (0.5-2.2)
[2019-09-28 16:49] LABS: Bilirubin Urine Neg (NEGATIVE); Blood Urine Neg (Negative); Glucose Urine UA Norm (Normal); Ketones Urine Negative (Negative); Leukocyte Esterase Urine Negative (Negative); Nitrate Urine Negative (Negative); Protein Urine Neg (Negative); Urine Appearance Clear (CLEAR); Urine Color Yellow (Yellow); Urobilinogen Urine Norm (Negative)
[2019-09-28 16:49] LABS: ABG PCO2 48.2 mmHg (35-45); ABG PH Result 7.34 (7.35-7.45); Arterial Blood Gas Hematocrit 39.4 % (42-52); Base Excess ABG -0.5 mmol/L (-2.0-2.0); Blood Gas Allen Test Pos; Blood Gas Sample Site Radial, right; Blood Gas Sample Type Arterial; HCO3 ABG 25.8 mmol/L (22-26); Oxygen Device BIPAP
[2019-09-28 16:55] LABS: Alanine Aminotransferase 10 U/L (0-41); Albumin Level 3.3 g/dL (3.5-5.2); Alkaline Phosphatase 95 IU/L (40-130); Anion Gap 11.8 (5-19); Aspartate Amino Transferase 14 U/L (0-40); Blood Urea Nitrogen 25 mg/dL (6-20); Calcium 8.5 mg/dL (8.5-10.5); Carbon Dioxide 29 mmol/L (22-29); Chloride 97 mmol/L (98-107); Creatine Phosphokinase 77 U/L (39-308); Globulin 2.5 g/dL (1.3-4.6); Glomerular Filtration Rate 69.2 mL/min (90-130); Glucose 140 mg/dL (65-115); Lipase 9 U/L (13-60); NT Pro B Type Natriuretic Pept 801 pg/mL (0-125); Phenytoin Dilantin 0.8 ug/mL (10-20); Potassium 3.8 mmol/L (3.5-5.1); Sodium 134 mmol/L (136-145); Total Bilirubin 0.4 mg/dL (0.15-1.2); Total Protein 5.8 g/dL (6.6-8.7); Valproic Acid Level 2.8 mcg/mL (50-100)
[2019-09-28 16:57] LABS: Amphetamines Screen Urine Negative (Negative); Barbiturates Screen Urine Negative (Negative); Benzodiazepines Screen Urine Positive (Negative); Cocaine Screen Urine Negative (Negative); Opiate Screen Urine Negative (Negative); PCP Screen Urine Negative (Negative); THC Screen Urine Negative (Negative)
[2019-09-28 16:59] LABS: Acetaminophen < 5.0 ug/mL (10-30); Alcohol Level < 10 mg/dL (0-10); Salicylate < 0.3 mg/dL (3-10)
[2019-09-28] MEDS: iohexol 350 mg/mL 100 mL Btl IV (16:59)
[2019-09-28 17:00] LABS: Add Urine Culture? No; Bacteria Urine TRACE; Mucus Urine 1+; Squamous Epithelial Cell Urine 0-4 (0-5)
--- NOTE | 2019-09-28 17:08 | ECG_ITS ---
Measurements Intervals [place] Rate: 110 P: 58 CA: 132 QRS: -49 QRSD: 109 T: 54 QT: 340 QTc: 460 SINUS TACHYCARDIA INCOMPLETE RIGHT BUNDLE BRANCH BLOCK [90+ ms QRS DURATION, TERMINAL R IN V1/V2, 40+ ms S IN I/aVL/V4/V5/V6] LEFT ANTERIOR FASCICULAR BLOCK [QRS AXIS <= -45, QR IN I, RS IN II] Compared to ECG 03/09/2019 00:13:49 Incomplete right bundle-branch block now present Sinus rhythm no longer present Electronically Signed On 09-28-2019 19:05:31 VOLUNTEER SERVICES ASSISTANT by Shazia Mosley M.D. [id number]
[2019-09-28 17:10] LABS: Glucose Point of Care 128 mg/dL (70-110)
[2019-09-28 17:11] LABS: Influenza A by IFA Negative (Negative); Influenza B by IFA Negative (Negative)
[2019-09-28 17:15] LABS: Lithium 0.1 mmol/L (0.6-1.2)
[2019-09-28 17:27] LABS: Troponin(5th) Baseline 12 ng/mL (0-15)
[2019-09-28 17:39] LABS: ABG PCO2 50.6 mmHg (35-45); ABG PH Result 7.32 (7.35-7.45); Arterial Blood Gas Hematocrit 38.4 % (42-52); Base Excess ABG -0.6 mmol/L (-2.0-2.0); Blood Gas Allen Test Pos; Blood Gas Sample Site Radial, left; Blood Gas Sample Type Arterial; HCO3 ABG 26.1 mmol/L (22-26); Oxygen Device BIPAP; PO2 ABG 66.5 mmHg (80.0-100.0)
[2019-09-28 18:36] LABS: Troponin 5 2HR 12.34 ng/mL (0-15); Troponin 5 2HR Delta 0.34 ABS# (0-10)
--- NOTE | 2019-09-28 18:52 | PM.HP ---
Providers/Chief Complaint Admitting Physician: Nia Shafer MD Chief Complaint: AMS History of Present Illness Sma Marroquin is a 54 year old male with a past medical history of multiple admissions to n.p.o. in 2018 and multiple ER visits through the ER past for issues related to chemical dependency, drug abuse, alcohol intoxication and suicidal ideation. He has a history of hypertension, COPD, chronic back pain, history of leukemia in remission He presents to the ER today after being brought by his with complaints of increasing somnolence and sleep for the past 3 days. Per history obtained from the ER, the has been changing the history on and off however did state that he recently started seeing a new provider in [place] and was prescribed Xanax, clonazepam, cyproheptadine, doxepin, gabapentin dose increased, Lyrica, quetiapine and tramadol. At one point she even stated that he may have taken 60 tablets of Xanax altogether. In the setting he was brought with increased somnolence. On arrival at the ER his GCS was noted to be 12. He was saturating 80% on room air. Initial ABG showed hypoxia with PO2 in the 40s. CTA of the chest was obtained which was negative for PE but showed bilateral infiltrates raising concern for pneumonia, my suspicion is for aspiration given the bilateral distribution and lower lobes. There may have been history of excess alcohol intake as well. After remaining on BiPAP for about an hour his blood gas improved slightly with 7.32/50 0.6/60 6.5/26.1. At the time of my exam he is saturating 100% on the BiPAP, though continues to remain lethargic. He awakens and answer some simple questions but is unable to provide me any sort of meaningful history. He has received up to 4 mg of Narcan with partial improvement in mental status. Review of Systems General: Reports: ROS unobtainable due to medical condition and ROS unobtainable due to mental status Medications/Allergies Home Medications Medication Instructions Recorded Confirmed Last Taken Type alprazolam [Xanax] See Rx Instructions .ROUTE .COMPLEX 09/28/19 09/28/19 09/27/19 History clonazepam 0.5 mg PO TID 09/28/19 09/28/19 09/28/19 History cyproheptadine 2 mg PO DAILY 09/28/19 09/28/19 09/28/19 History diclofenac sodium See Rx Instructions .ROUTE .COMPLEX 09/28/19 09/28/19 Unknown History doxepin 75 mg PO BEDTIME 09/28/19 09/28/19 09/27/19 History fluticasone propionate 1 - 2 spray INTRANASAL BID PRN 09/28/19 09/28/19 09/28/19 History gabapentin 600 mg PO TID 09/28/19 09/28/19 09/28/19 History hydrochlorothiazide 25 mg PO DAILY 09/28/19 09/28/19 09/28/19 History lisinopril 20 mg PO DAILY 09/28/19 09/28/19 09/28/19 History lovastatin 10 mg PO DAILY 09/28/19 09/28/19 Unknown History methocarbamol 750 mg PO TID 09/28/19 09/28/19 Unknown History montelukast 10 mg PO DAILY 09/28/19 09/28/19 09/28/19 History pantoprazole 40 mg PO DAILY 09/28/19 09/28/19 Unknown History potassium chloride 20 meq PO BID 09/28/19 09/28/19 09/28/19 History pregabalin 25 mg PO DAILY 09/28/19 09/28/19 09/28/19 History quetiapine 100 mg PO DAILY 09/28/19 09/28/19 Unknown History sildenafil 100 mg PO PRN PRN 09/28/19 09/28/19 09/28/19 History tiotropium bromide [Spiriva with 1 cap INHALATION DAILY 09/28/19 09/28/19 09/28/19 History HandiHaler] tramadol 50 mg PO PRN PRN 09/28/19 09/28/19 09/28/19 History Allergies Allergy/AdvReac Type Severity Reaction Status Date / Time lurasidone [From Latuda] Allergy Unknown Verified 09/21/19 18:24 PFSH Acute PFSH: Medical History (Updated 09/28/19 @ 19:03 by Nai Shafer MD) Alcohol abuse Altered mental status COPD (chronic obstructive pulmonary disease) Hypertension Polysubstance abuse Surgical History History of ankle surgery Social History (Updated 09/28/19 @ 19:02 by Nai Shafer MD) Smoking and tobacco status: current every day smoker Alcohol intake: current Substance/Drug Use: current Vitals/I&O/Wt Last Vital Signs Temp 98.9 F 09/28/19 16:20 Pulse 112 H 09/28/19 18:48 Resp 16 09/28/19 18:48 BP 122/75 09/28/19 18:48 Pulse Ox 100 09/28/19 18:48 09/28/19 09/28/19 09/28/19 06:59 14:59 22:59 Intake Total 1050 / 1050 Balance 1050 / 1050 Weight last 48 hrs Weight 102.058 kg Weight 104.326 kg Physical Exam Narrative: EXAM NARRATIVE: GEN: Awake upon calling name, nods yes or no to simple questions, however is unable to have a conversation. He does however asking for pain medications multiple times. CVS: S1S2 N RS: CTA B/L anteriorly, not auscultated posteriorly because of patient positioning Abd: Soft, nt/nd , bs+ GARAGE DOOR OPENER INSTALLER: Drowsy, wakes up to calling name and is able to answer simple simple questions. Moving all extremities while laying in bed. Data : 09/28/19 16:08 09/28/19 16:08 Micro: Microbiology 09/28/19 16:08 Blood Culture - Preliminary Blood SPECIMEN COLLECTED 09/28/19 16:18 Blood Culture - Preliminary Blood SPECIMEN COLLECTED A&P Assessment and plan (1) Polysubstance abuse: Status: Acute Code(s): F19.10 - Other psychoactive substance abuse, uncomplicated (2) Alcohol abuse: Status: Acute Code(s): F10.10 - Alcohol abuse, uncomplicated (3) Hypertension: Status: Acute Code(s): I10 - Essential (primary) hypertension (4) COPD (chronic obstructive pulmonary disease): Status: Acute Code(s): J44.9 - Chronic obstructive pulmonary disease, unspecified (5) URI (upper respiratory infection): Status: Acute Qualifiers: URI type: unspecified URI Qualified Code(s): J06.9 - Acute upper respiratory infection, unspecified Code(s): J06.9 - Acute upper respiratory infection, unspecified (6) Altered mental status: Status: Acute Qualifiers: Altered mental status type: somnolence Qualified Code(s): R40.0 - Somnolence Code(s): R41.82 - Altered mental status, unspecified (7) Sepsis: Status: Acute Qualifiers: Acute respiratory failure type: with hypoxia Sepsis acute organ dysfunction status: with acute organ dysfunction Sepsis type: sepsis due to unspecified organism Severe sepsis acute organ dysfunction type: acute respiratory failure Severe sepsis shock status: without septic shock Qualified Code(s): A41.9 - Sepsis, unspecified organism; R65.20 - Severe sepsis without septic shock; J96.01 - Acute respiratory failure with hypoxia Code(s): A41.9 - Sepsis, unspecified organism (8) Pneumonia: Status: Acute Qualifiers: Laterality: bilateral Lung location: unspecified part of lung Pneumonia type: due to unspecified organism Qualified Code(s): J18.9 - Pneumonia, unspecified organism Code(s): J18.9 - Pneumonia, unspecified organism (9) Altered mental status: Status: Acute Code(s): R41.82 - Altered mental status, unspecified Additional A&P Information Admit to ICU. Meet sepsis criteria based on tachycardia and elevated white blood cell count at 13.1 and evidence of pneumonia on CT of the chest. #1 altered mental status most likely related to polysubstance abuse elevated above. Based on history from the it is entirely unclear as to what substances he may have taken and and how much quantity. For now we will continue to monitor closely. His mental status is improved somewhat after getting Narcan and remaining on BiPAP. Patient will continue to be n.p.o. and remain on BiPAP for now. If however he continues to have deteriorating GCS, there will be low threshold for intubation. Continuous cardiac and pulse ox monitoring at bedside. Blood pressure is currently stable. CT head negative for any acute intracranial events #[address] chest likely to represent aspiration pneumonia based on location. Start patient on ceftriaxone, azithromycin and Flagyl. Influenza a and B antigen is negative #3 history of COPD not does not appear to be currently exacerbated Continue DuoNebs every 4 hours Holding off on steroids as does not appear to be in current exacerbation. #4 history of hypertension holding home medications for now. This may be resumed if patient's mental status improves and he is able to safely take p.o. CODE STATUS is full code DVT prophylaxis Lovenox Of note patient's family has been difficult since moving to the ICU and disrupting patient care. Attestations Medical Necessity Statement*: Anticipate greater than 2 midnight admission for management of polysubstance abuse with overdose and aspiration pneumonia. Coding Level of Care Code Acute Supervisor Microfilm Duplicating Unit for g Fwd Diagnoses Polysubstance abuse F19.10 Alcohol abuse F10.10 Hypertension I10 COPD (chronic obstructive pulmonary disease) J44.9 URI (upper respiratory infection) J06.9 URI type: unspecified URI Altered mental status R40.0 Altered mental status type: somnolence Sepsis A41.9; R65.20; J96.01 Acute respiratory failure type: with hypoxia Sepsis acute organ dysfunction status: with acute organ dysfunction Sepsis type: sepsis due to unspecified organism Severe sepsis acute organ dysfunction type: acute respiratory failure Severe sepsis shock status: without septic shock Pneumonia J18.9 Laterality: bilateral Lung location: unspecified part of lung Pneumonia type: due to unspecified organism Altered mental status R41.82
--- NOTE | 2019-09-28 19:08 | ECG_ITS ---
Measurements Intervals [place] Rate: 110 P: 53 CA: 164 QRS: -49 QRSD: 101 T: 52 QT: 331 QTc: 448 SINUS TACHYCARDIA INCOMPLETE RIGHT BUNDLE BRANCH BLOCK [90+ ms QRS DURATION, TERMINAL R IN V1/V2, 4 40+ ms S IN I/aVL/V4/V5/V6] LEFT ANTERIOR FASCICULAR BLOCK [QRS AXIS <= -45, QR IN I, RS IN II] MINIMAL ST DEPRESSION [0.025+ mV ST DEPRESSION] INTERPRETATION BASED ON A DEFAULT AGE OF 40 YEARS Compared to ECG 03/09/2019 00:13:49 Incomplete right bundle-branch block now present ST (T wave) deviation now present Sinus rhythm no longer present Electronically Signed On 09-28-2019 19:08:04 ELECTRIC MOTOR TESTER ASSEMBLER by Shazia Mosley M.D. [id number]
[2019-09-28] MEDS: ipratropium-albuterol 3 mL Neb INHALATION (19:35)
[2019-09-28] MEDS: metroNIDAZOLE IV 500 MG/100 ML PREMIX 100 MG IV (19:43)
[2019-09-28] MEDS: enoxaparin 40 mg/0.4 mL Syringe SUBCUT (19:45)
[2019-09-28] MEDS: TRAMadol 50 mg Tablet PO (20:22)
[2019-09-28] MEDS: cefTRIAXone 1,000 MG in sodium chloride 0.9% (plus) 50 ML 100 MG IV (20:30)
[2019-09-28] MEDS: azithromycin 500 MG in sodium chloride 0.9% 250 ML 250 MG IV (21:29)
[2019-09-28 22:57] LABS: Troponin 5 6HR 10.55 ng/mL (0-15)
[2019-09-28 23:08] LABS: Troponin 5 6HR Delta -1.45 ng/L (0-12)
--- NOTE | 2019-09-28 23:08 | ECG_ITS ---
Measurements Intervals [place] Rate: 101 P: 54 DC: 166 QRS: -25 QRSD: 105 T: 55 QT: 346 QTc: 450 SINUS TACHYCARDIA BORDERLINE LEFT AXIS DEVIATION [QRS AXIS < -20] ABNORMAL RHYTHM ECG Compared to ECG 09/28/2019 17:42:48 Incomplete right bundle-branch block no longer present Left anterior fascicular block no longer present Electronically Signed On 09-29-2019 19:51:35 CDT by Shazia Mosley M.D. [id number]
[2019-09-29] VITALS (65 sets, daily range): BP systolic 97–146; BP diastolic 57–91; PULSE 88–111; RESP 1–30; TEMP 36.8–37.1; O2SAT 84–97
[2019-09-29] MEDS: ipratropium-albuterol 3 mL Neb INHALATION ×2 (03:01→07:50)
[2019-09-29] MEDS: metroNIDAZOLE IV 500 MG/100 ML PREMIX 100 MG IV ×3 (03:08→20:38)
[2019-09-29] MEDS: TRAMadol 50 mg Tablet PO ×4 (03:11→23:30)
[2019-09-29] MEDS: sodium chloride 0.9% 1,000 ML 100 ML IV (04:47)
[2019-09-29 05:19] LABS: Basophils % 0.2 %; Eosinophils % 0.1 %; Hematocrit 35.1 % (42.0-52.0); Hemoglobin 11.2 g/dL (11.7-16.6); Lymphocytes # 0.3 10^3/uL (0.8-4.8); Lymphocytes % 3.7 %; Mean Corpuscular HGB Conc 31.9 g/dL (30.0-36.0); Mean Corpuscular Hemoglobin 32.2 pg (28.0-34.0); Mean Corpuscular Volume 100.9 fL (80-94); Mean Platelet Volume 10.3 fL (7.4-10.4); Monocytes # 0.8 10^3/uL (0.2-0.9); Monocytes % 9.2 %; Neutrophils # 7.8 10^3/uL (1.8-7.7); Neutrophils % 86.7 %; Nucleated Red Blood Cells % 0 %; Platelet Count 171 10^3/cmm (130-400); Red Blood Count 3.48 10^6/uL (4.1-5.3); Red Cell Distribution Width 13.5 % (12.1-15.1)
[2019-09-29 05:39] LABS: Slide Review Slide Review Perform
[2019-09-29 05:47] LABS: Alanine Aminotransferase 9 U/L (0-41); Albumin Level 2.7 g/dL (3.5-5.2); Alkaline Phosphatase 74 IU/L (40-130); Anion Gap 13.9 (5-19); Aspartate Amino Transferase 19 U/L (0-40); Blood Urea Nitrogen 24 mg/dL (6-20); Calcium 8.1 mg/dL (8.5-10.5); Carbon Dioxide 23 mmol/L (22-29); Chloride 105 mmol/L (98-107); Globulin 3.3 g/dL (1.3-4.6); Glomerular Filtration Rate 116.7 mL/min (90-130); Glucose 124 mg/dL (65-115); Potassium 3.9 mmol/L (3.5-5.1); Sodium 138 mmol/L (136-145); Total Bilirubin 0.4 mg/dL (0.15-1.2)
[2019-09-29 05:59] LABS: Procalcitonin 2.67 ng/mL (0-0.5)
--- NOTE | 2019-09-29 09:58 | PM.PN ---
Subjective Subjective: Interval history: More alert and awake this morning, able to converse. Requesting pain medications. Remained on BiPAP overnight. White blood cell count trending down. Remains afebrile. Ongoing sinus tachycardia with heart rate of 110 this morning. Medications: Reviewed: Yes Vitals/I&O/Wt Last Vital Signs Temp 98.7 F 09/29/19 04:05 Pulse 110 H 09/29/19 09:30 Resp 28 H 09/29/19 09:30 BP 123/72 09/29/19 09:30 Pulse Ox 90 09/29/19 09:30 09/28/19 09/29/19 09/29/19 21:59 06:59 14:59 Intake Total 495 / 495 Output Total Balance 495 / 495 Weight last 48 hrs Weight 102.058 kg Weight 104.326 kg Physical Exam Narrative: EXAM NARRATIVE: GEN: Awake, alert and oriented, no acute distress HEENT: BiPAP in place at time of exam. CVS: S1S2 N RS: Bilateral coarse crackles all areas. Abd: Soft, nt/nd , bs+ ELEVATOR INSTALLER APPRENTICE: no focal neuro deficits Data : 09/29/19 04:36 09/29/19 04:36 Micro: Microbiology 09/28/19 16:08 Blood Culture - Preliminary Blood SPECIMEN COLLECTED 09/28/19 16:18 Blood Culture - Preliminary Blood SPECIMEN COLLECTED A&P Assessment and plan (1) Polysubstance abuse: Status: Acute Code(s): F19.10 - Other psychoactive substance abuse, uncomplicated (2) Alcohol abuse: Status: Acute Code(s): F10.10 - Alcohol abuse, uncomplicated (3) Hypertension: Status: Acute Code(s): I10 - Essential (primary) hypertension (4) COPD (chronic obstructive pulmonary disease): Status: Acute Code(s): J44.9 - Chronic obstructive pulmonary disease, unspecified (5) URI (upper respiratory infection): Status: Inactive Qualifiers: URI type: unspecified URI Qualified Code(s): J06.9 - Acute upper respiratory infection, unspecified Code(s): J06.9 - Acute upper respiratory infection, unspecified (6) Altered mental status: Status: Acute Qualifiers: Altered mental status type: somnolence Qualified Code(s): R40.0 - Somnolence Code(s): R41.82 - Altered mental status, unspecified (7) Sepsis: Status: Acute Qualifiers: Acute respiratory failure type: with hypoxia Sepsis acute organ dysfunction status: with acute organ dysfunction Sepsis type: sepsis due to unspecified organism Severe sepsis acute organ dysfunction type: acute respiratory failure Severe sepsis shock status: without septic shock Qualified Code(s): A41.9 - Sepsis, unspecified organism; R65.20 - Severe sepsis without septic shock; J96.01 - Acute respiratory failure with hypoxia Code(s): A41.9 - Sepsis, unspecified organism (8) Pneumonia: Status: Acute Qualifiers: Laterality: bilateral Lung location: unspecified part of lung Pneumonia type: due to unspecified organism Qualified Code(s): J18.9 - Pneumonia, unspecified organism Code(s): J18.9 - Pneumonia, unspecified organism Additional A&P Information Admit to ICU. Meet sepsis criteria based on tachycardia and elevated white blood cell count at 13.1 and evidence of pneumonia on CT of the chest. #1 altered mental status most likely related to polysubstance abuse. Based on limited and possibly unreliable history from the it is entirely unclear as to what substances he may have taken and and how much quantity His mental status is improved this morning. He is alert awake and able to have a conversation with me. Sinus tachycardia developing this morning, may be related to possible withdrawal dose and alcohol Continuous cardiac and pulse ox monitoring at bedside. Blood pressure is currently stable. CT head negative for any acute intracranial events #[address] chest likely to represent aspiration pneumonia based on location. Start patient on ceftriaxone, azithromycin and Flagyl. Influenza a and B antigen is negative Increasing rails on exam today with developing edema bilateral lower extremity and hands. Suspect fluid overload from resuscitative IV fluids. Patient states he takes Lasix at home however does not recall the dose , I do not see the above listed on his home medications. Lasix 40 mg IV push once today stop IVF #3 history of COPD not does not appear to be currently exacerbated Continue DuoNebs every 4 hours Holding off on steroids as does not appear to be in current exacerbation. #4 history of hypertension , resume lisinopril, however at a lower dose for now. #5: For chronic pain, will resume his tramadol and gabapentin, however at a lower dose. Avoiding opiates for now to prevent further depression of respiratory drive. I do not see any opiates listed on his home medications. #6: Start CIWA for protocol and monitor for alcohol withdrawal. CODE STATUS is full code DVT prophylaxis Lovenox Attestations Medical Necessity Statement*: management of hypoxic respiratory failure, monitoring AMS Coding Level of Care Code Acute Host Hostess for Chg Fwd Diagnoses Polysubstance abuse F19.10 Alcohol abuse F10.10 Hypertension I10 COPD (chronic obstructive pulmonary disease) J44.9 URI (upper respiratory infection) J06.9 URI type: unspecified URI Altered mental status R40.0 Altered mental status type: somnolence Sepsis A41.9; R65.20; J96.01 Acute respiratory failure type: with hypoxia Sepsis acute organ dysfunction status: with acute organ dysfunction Sepsis type: sepsis due to unspecified organism Severe sepsis acute organ dysfunction type: acute respiratory failure Severe sepsis shock status: without septic shock Pneumonia J18.9 Laterality: bilateral Lung location: unspecified part of lung Pneumonia type: due to unspecified organism
[2019-09-29] MEDS: FUROsemide 10 mg/mL SDV 4mL 40 MG IVP (10:45)
--- NOTE | 2019-09-29 11:57 | PC.CHAP ---
Pastoral Care Encounter/Spiritual Assessment Type of Contact [] Declined cfd engineer visit [] Patient/Family/Request visit [] Outpatient visit [] Follow-up visit [] Physician referral [] Code/Alert [] Routine visit [] Staff referral [] Actively dying [] Patient sleeping [] Family support [] [] Out of room [] Palliative care [] [] Receiving care in room [] Pre-surgical visit [] Trauma [] Long length of stay [] ICU visit [] Other: Relational/Emotional Strength [] Patient feels connected with others/family/visitors/staff [] Distress [] Loneliness/isolation [] Abandonment Spirituality of Patient [] Person of Gale [] Attends Holiness of their Gale [] Believes in Prayer [] Reads Bible or Yazdanism materials [] There are Spiritual issues to be addressed Cdl Bulk Driver Interventions [x] Prayer [x] Active listening [x] Non-anxious presence [x] Spiritual/emotional support [] Crisis/trauma care [] Spiritual counseling [] Bereavement support [] Provided bereavement packet [] Provided Bible/devotional materials [] Provided toy/stuffed animal, coloring book to patient or family member [] Provided Communion [] Anointing/[place] [] Salvation [x] Completed spiritual assessment [] Other: Impact on Illness or Injury [] Angry [] Fearful [] Anxious [] Often cries [] Exhaustion [] Unable to work [] Unable to attend rastafari [] Unable to walk/stand [] Unable to read [] Unable to drive [] Unable to eat/drink [] Unable to sleep [] Unable to be with family [] Patient intubated [] Other: Summary Chaplains prayed with patient. Time spent with patient 15 minutes
[2019-09-29] MEDS: acetaminophen 325 mg Tablet 650 MG PO ×2 (15:11→20:07)
[2019-09-29] MEDS: gabapentin 300 mg Capsule PO ×2 (15:12→20:07)
[2019-09-29] MEDS: cefTRIAXone 1,000 MG in sodium chloride 0.9% (plus) 50 ML 100 MG IV (19:59)
[2019-09-29] MEDS: enoxaparin 40 mg/0.4 mL Syringe SUBCUT (20:08)
[2019-09-29] MEDS: azithromycin 500 MG in sodium chloride 0.9% 250 ML 250 MG IV (21:42)
[2019-09-30] VITALS (12 sets, daily range): BP systolic 110–145; BP diastolic 66–91; PULSE 88–106; RESP 16–30; TEMP 36.9–37.4; O2SAT 91–94
[2019-09-30] MEDS: metroNIDAZOLE IV 500 MG/100 ML PREMIX 100 MG IV ×3 (03:37→20:09)
[2019-09-30] MEDS: acetaminophen 325 mg Tablet 650 MG PO ×2 (03:43→10:01)
[2019-09-30 05:16] LABS: Basophils % 0.3 %; Eosinophils # 0.2 10^3/uL (0.0-0.8); Eosinophils % 1.6 %; Hematocrit 32.2 % (42.0-52.0); Hemoglobin 10.7 g/dL (11.7-16.6); Lymphocytes # 0.5 10^3/uL (0.8-4.8); Mean Corpuscular HGB Conc 33.2 g/dL (30.0-36.0); Mean Corpuscular Hemoglobin 31.1 pg (28.0-34.0); Mean Corpuscular Volume 93.6 fL (80-94); Mean Platelet Volume 10.4 fL (7.4-10.4); Monocytes # 1.1 10^3/uL (0.2-0.9); Monocytes % 9.7 %; Neutrophils # 9.6 10^3/uL (1.8-7.7); Neutrophils % 83.6 %; Nucleated Red Blood Cells % 0 %; Platelet Count 178 10^3/cmm (130-400); Red Blood Count 3.44 10^6/uL (4.1-5.3); Red Cell Distribution Width 13.1 % (12.1-15.1); White Blood Count 11.5 10^3/uL (4.0-10.0)
[2019-09-30] MEDS: TRAMadol 50 mg Tablet PO ×3 (05:35→20:10)
[2019-09-30 05:52] LABS: Alanine Aminotransferase 10 U/L (0-41); Albumin Level 3.1 g/dL (3.5-5.2); Alkaline Phosphatase 81 IU/L (40-130); Anion Gap 13.5 (5-19); Aspartate Amino Transferase 19 U/L (0-40); Blood Urea Nitrogen 24 mg/dL (6-20); Calcium 8.9 mg/dL (8.5-10.5); Carbon Dioxide 26 mmol/L (22-29); Chloride 102 mmol/L (98-107); Globulin 2.8 g/dL (1.3-4.6); Glucose 111 mg/dL (65-115); Osmolality Calculated 283 mOsm/kg (285-295); Potassium 3.5 mmol/L (3.5-5.1); Sodium 138 mmol/L (136-145); Total Bilirubin 0.3 mg/dL (0.15-1.2); Total Protein 5.9 g/dL (6.6-8.7)
--- NOTE | 2019-09-30 07:04 | P.PN_ITS ---
Subjective Subjective: Interval history: Patient reports feeling better this morning. Continues to have cough which is mostly nonproductive. Reports that he has been coughing the last several days and was unable to sleep therefore he took extra clonazepam to help with sleep but otherwise denies being depressed or having any suicidal or homicidal ideations. Smokes 1 pack/day for many years. 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 He denies chest pain or abdominal pain. He requires minimal oxygen support and saturates in the low 90s. Vitals/I&O/Wt Last Vital Signs Temp 98.8 F 09/29/19 20:00 Pulse 92 09/30/19 04:36 Resp 19 H 09/30/19 04:36 BP 119/82 09/30/19 04:36 Pulse Ox 94 09/30/19 04:36 09/29/19 09/30/19 09/30/19 22:59 06:59 14:59 Intake Total 840 / 1915 600 / 2515 Output Total 1600 / 3940 Balance 840 / -425 -1000 / -1425 Weight last 48 hrs Weight 102.058 kg Weight 104.326 kg Physical Exam Const: COMMON NORMALS: no apparent distress and oriented x3 Resp: OTHER: Coarse breath sounds throughout which appear mostly upper airway transmitted sounds. Relatively good air movement otherwise. No wheezing appreciated Cardio: COMMON NORMALS: regular rate, regular rhythm and S2 normal heart sound RATE: regular rate RHYTHM: regular rhythm HEART SOUNDS: S2 normal OTHER: No lower extremity edema GI: COMMON NORMALS: normal to inspection, nondistended, normoactive bowel sounds, soft to palpation and non-tender PALPATION: Yes soft Neuro: COMMON NORMALS: oriented x3 and no focal motor deficits Data : 09/30/19 04:44 09/30/19 04:44 Micro: Microbiology 09/28/19 16:08 Blood Culture - Preliminary Blood NEGATIVE TO DATE 09/28/19 16:18 Blood Culture - Preliminary Blood NEGATIVE TO DATE A&P Additional A&P Information Assessment and plan (1) Polysubstance abuse: (2) Alcohol abuse: (3) Hypertension: (4) COPD (chronic obstructive pulmonary disease): (5) URI (upper respiratory infection): (6) Altered mental status: (7) Sepsis: (8) Pneumonia: Suspected to be viral but secondary bacterial infection cannot be ruled out. Additional A&P Information Will transfer patient to medical aguayo. Remove Barker catheter and ambulate. Monitor white blood cell count. Droplet precautions. #1 Toxic encephalopathy. This is likely secondary to unintentional Xanax overdose. Pneumonia could also play a role. #2 Community-acquired pneumonia. This appears to be viral but secondary bacterial infection cannot be ruled out. Patient denies difficulty swallowing although still could have potentially aspirated during episode of encephalopathy. Continue current antibiotics. Will request respiratory viral panel. #3 COPD, not in exacerbation #4 Hypertension #5: For chronic pain, will resume his tramadol and gabapentin, however at a lower dose. Avoiding opiates for now to prevent further depression of respiratory drive. I do not see any opiates listed on his home medications. #6: Start CIWA for protocol and monitor for alcohol withdrawal. #7: Tobacco abuse. Discussed extensively regarding importance of smoking cessation. Patient voiced understanding and agreed to try nicotine patch. #8: Acute hypoxic and hypercapnic respiratory failure, present on admission. CODE STATUS is full code DVT prophylaxis Lovenox Attestations Medical Necessity Statement*: Patient with hypoxic respiratory failure and pneumonia requires close inpatient monitoring and treatment until deemed safe for discharge. Coding Level of Care Code Acute Paraprofessional Education Assistant for [employer]
[2019-09-30] MEDS: ipratropium-albuterol 3 mL Neb INHALATION ×2 (08:36→16:11)
--- NOTE | 2019-09-30 09:02 | PC.CHAP ---
Pastoral Care Encounter/Spiritual Assessment Type of Contact [] Declined city letter carrier visit [] Patient/Family/Request visit [] Outpatient visit [] Follow-up visit [] Physician referral [] Code/Alert [x] Routine visit [] Staff referral [] Actively dying [] Patient sleeping [] Family support [] [] Out of room [] Palliative care [] [] Receiving care in room [] Pre-surgical visit [] Trauma [] Long length of stay [x] ICU visit [] Other: Relational/Emotional Strength [x] Patient feels connected with others/family/visitors/staff [] Distress [] Loneliness/isolation [] Abandonment Spirituality of Patient [x] Person of Gale [x] Attends Moravian of their Gale [x] Believes in Prayer [] Reads Bible or Zoroastrianism materials [] There are Spiritual issues to be addressed [facility] Interventions [x] Prayer [x] Active listening [x] Non-anxious presence [x] Spiritual/emotional support [] Crisis/trauma care [] Spiritual counseling [] Bereavement support [] Provided bereavement packet [] Provided Bible/devotional materials [] Provided toy/stuffed animal, coloring book to patient or family member [] Provided Communion [] Anointing/[place] [] Salvation [x] Completed spiritual assessment [] Other: Impact on Illness or Injury [] Angry [] Fearful [] Anxious [] Often cries [] Exhaustion [] Unable to work [] Unable to attend christianity [] Unable to walk/stand [] Unable to read [] Unable to drive [] Unable to eat/drink [] Unable to sleep [] Unable to be with family [] Patient intubated [] Other: Summary Patient asked for prayer for healing of pneumonia and for his who he stated is worried about him. Station Gateman prayed with patient and visited with him about his past leukemia healing. Patient was visited by Station Gateman Georgi Jeter. Time spent with patient 15 minutes
[2019-09-30] MEDS: pantoprazole DR 40 mg Tablet PO (09:11)
[2019-09-30] MEDS: lisinopril 20 mg Tablet PO (09:12)
[2019-09-30] MEDS: folic acid 1 mg Tablet PO (09:12)
[2019-09-30] MEDS: thiamine 100 mg Tablet PO (09:12)
[2019-09-30] MEDS: atorvastatin 40 mg Tablet 20 MG PO (09:12)
[2019-09-30] MEDS: multivitamin therapeutic Tablet 1 TAB PO (09:12)
[2019-09-30] MEDS: gabapentin 300 mg Capsule PO ×3 (09:13→20:09)
[2019-09-30] MEDS: cefTRIAXone 1,000 MG in sodium chloride 0.9% (plus) 50 ML 100 MG IV (19:36)
[2019-09-30] MEDS: sodium chloride 0.9% 100 ML 10 ML (19:38)
[2019-09-30] MEDS: enoxaparin 40 mg/0.4 mL Syringe SUBCUT (20:08)
[2019-10-01] VITALS (14 sets, daily range): BP systolic 106–138; BP diastolic 66–83; PULSE 80–102; RESP 16–24; TEMP 36.7–37.1; O2SAT 90–93
[2019-10-01] MEDS: TRAMadol 50 mg Tablet PO ×3 (03:56→22:17)
[2019-10-01] MEDS: metroNIDAZOLE IV 500 MG/100 ML PREMIX 100 MG IV ×2 (03:57→23:55)
[2019-10-01] MEDS: ipratropium-albuterol 3 mL Neb INHALATION ×3 (08:50→23:15)
[2019-10-01] MEDS: atorvastatin 40 mg Tablet 20 MG PO (11:05)
[2019-10-01] MEDS: thiamine 100 mg Tablet PO (11:05)
[2019-10-01] MEDS: folic acid 1 mg Tablet PO (11:05)
[2019-10-01] MEDS: multivitamin therapeutic Tablet 1 TAB PO (11:06)
[2019-10-01] MEDS: gabapentin 300 mg Capsule PO ×3 (11:06→22:17)
[2019-10-01] MEDS: pantoprazole DR 40 mg Tablet PO (11:06)
[2019-10-01] MEDS: lisinopril 20 mg Tablet PO (11:06)
[2019-10-01 11:37] LABS: Basophils % 0.3 %; Eosinophils # 0.2 10^3/uL (0.0-0.8); Eosinophils % 1.3 %; Hematocrit 32.7 % (42.0-52.0); Hemoglobin 11.2 g/dL (11.7-16.6); Lymphocytes # 0.8 10^3/uL (0.8-4.8); Lymphocytes % 6.6 %; Mean Corpuscular HGB Conc 34.3 g/dL (30.0-36.0); Mean Corpuscular Hemoglobin 31.1 pg (28.0-34.0); Mean Corpuscular Volume 90.8 fL (80-94); Mean Platelet Volume 9.9 fL (7.4-10.4); Monocytes # 1.4 10^3/uL (0.2-0.9); Monocytes % 12.4 %; Neutrophils % 78.2 %; Nucleated Red Blood Cells % 0 %; Platelet Count 203 10^3/cmm (130-400); Red Cell Distribution Width 12.9 % (12.1-15.1); White Blood Count 11.5 10^3/uL (4.0-10.0)
[2019-10-01 11:54] LABS: Alanine Aminotransferase 6 U/L (0-41); Alkaline Phosphatase 91 IU/L (40-130); Anion Gap 15.3 (5-19); Aspartate Amino Transferase 16 U/L (0-40); Blood Urea Nitrogen 21 mg/dL (6-20); Carbon Dioxide 23 mmol/L (22-29); Chloride 100 mmol/L (98-107); Globulin 3.3 g/dL (1.3-4.6); Glucose 116 mg/dL (65-115); Osmolality Calculated 278 mOsm/kg (285-295); Potassium 3.3 mmol/L (3.5-5.1); Sodium 135 mmol/L (136-145); Total Bilirubin 0.3 mg/dL (0.15-1.2); Total Protein 6.3 g/dL (6.6-8.7)
--- NOTE | 2019-10-01 15:18 | PC.SOCIAL ---
Pg 2 IMM Explained to pt Pg 2 IMM. Pt verbally understands. No questions voiced. Provided pt a signed copy. Signed, dated, & timed then placed in chart.
--- NOTE | 2019-10-01 15:42 | P.PN_ITS ---
Subjective Subjective: Interval history: Patient reports feeling okay this morning and denies shortness of breath or chest pain. He appears somewhat lethargic and slurring his speech but otherwise follows commands and answers questions appropriately. He shows no evidence of any neurological deficit. His at bedside reports that this is his normal speech although he was more alert and talking much clear yesterday when I saw him. Apparently patient brought his benzodiazepines with him and as I was told medications were given to yesterday and asked her to take them back home. Patient and denied using his home medications here. He did not receive any benzodiazepine or opioid medication since yesterday therefore one-to-one sitter was requested as it was suspected that patient took his home medications. It appears that the patient received his clonazepam on 09/26/2019. Patient later today mention to RN that he received a call from his nurse practitioner reporting to him that his lymphoma is back. We are trying to get in touch with primary care provider's office to find out more information. Medications: Reviewed: Yes Vitals/I&O/Wt Last Vital Signs Temp 98.1 F 10/01/19 11:00 Pulse 88 10/01/19 15:36 Resp 18 10/01/19 15:36 BP 123/77 10/01/19 11:00 Pulse Ox 91 10/01/19 15:36 10/01/19 10/01/19 10/01/19 06:59 14:59 22:59 Intake Total 120 / 560 1080 / 1080 Balance 120 / 560 1080 / 1080 Physical Exam Const: COMMON NORMALS: no apparent distress and oriented x3 Resp: OTHER: Much clear air movement. No wheezing appreciated Cardio: COMMON NORMALS: regular rate, regular rhythm and S2 normal heart sound RATE: regular rate RHYTHM: regular rhythm HEART SOUNDS: S2 normal OTHER: No lower extremity edema GI: COMMON NORMALS: normal to inspection, nondistended, normoactive bowel sounds, soft to palpation and non-tender PALPATION: Yes soft Neuro: COMMON NORMALS: oriented x3 and no focal motor deficits OTHER: Normal shoulder shrug, no peripheral vision deficit and normal [id number] test bilaterally Data : 10/01/19 11:30 10/01/19 11:30 Micro: Microbiology 09/28/19 16:28 Urine Culture - Final Urine Catheterized A&P Assessment and plan (1) Polysubstance abuse: Status: Acute Code(s): F19.10 - Other psychoactive substance abuse, uncomplicated (2) Alcohol abuse: Status: Acute Code(s): F10.10 - Alcohol abuse, uncomplicated (3) Hypertension: Status: Acute Code(s): I10 - Essential (primary) hypertension (4) COPD (chronic obstructive pulmonary disease): Status: Acute Code(s): J44.9 - Chronic obstructive pulmonary disease, unspecified (5) URI (upper respiratory infection): Status: Inactive Qualifiers: URI type: unspecified URI Qualified Code(s): J06.9 - Acute upper respiratory infection, unspecified Code(s): J06.9 - Acute upper respiratory infection, unspecified (6) Altered mental status: Status: Acute Qualifiers: Altered mental status type: somnolence Qualified Code(s): R40.0 - Somnolence Code(s): R41.82 - Altered mental status, unspecified (7) Sepsis: Resolved Status: Acute Qualifiers: Acute respiratory failure type: with hypoxia Sepsis acute organ dysfunction status: with acute organ dysfunction Sepsis type: sepsis due to unspecified organism Severe sepsis acute organ dysfunction type: acute respiratory failure Severe sepsis shock status: without septic shock Qualified Code(s): A41.9 - Sepsis, unspecified organism; R65.20 - Severe sepsis without septic shock; J96.01 - Acute respiratory failure with hypoxia Code(s): A41.9 - Sepsis, unspecified organism (8) Pneumonia: Status: Acute Qualifiers: Laterality: bilateral Lung location: unspecified part of lung Pneumonia type: due to unspecified organism Qualified Code(s): J18.9 - Pneumonia, unspecified organism Code(s): J18.9 - Pneumonia, unspecified organism Additional A&P Information Assessment and plan (1) Polysubstance abuse: (2) Alcohol abuse: (3) Hypertension: (4) COPD (chronic obstructive pulmonary disease): (5) URI (upper respiratory infection): (6) Altered mental status: (7) Sepsis: (8) Pneumonia: Suspected to be viral but secondary bacterial infection cannot be ruled out. Additional A&P Information Will transfer patient to medical aguayo. Remove Barker catheter and ambulate. Monitor white blood cell count. Droplet precautions. #1 Toxic encephalopathy. This is likely secondary to unintentional Xanax ov erdose. Pneumonia could also play a role. #2 Community-acquired pneumonia. This appears to be viral but secondary bacterial infection cannot be ruled out. Patient denies difficulty swallowing although still could have potentially aspirated during episode of encephalopathy. Continue current antibiotics. Will request respiratory viral panel. #3 COPD, not in exacerbation #4 Hypertension #5: For chronic pain, will resume his tramadol and gabapentin, however at a lower dose. Avoiding opiates for now to prevent further depression of respiratory drive. I do not see any opiates listed on his home medications. #6: Start CIWA for protocol and monitor for alcohol withdrawal. #7: Tobacco abuse. Discussed extensively regarding importance of smoking cessation. Patient voiced understanding and agreed to try nicotine patch. #8: Acute hypoxic and hypercapnic respiratory failure, present on admission. #9: Altered mental status with lethargy and slurred speech. Highly suggestive of self administering benzodiazepine use. Discussed with Dr. Cornelius who will see patient in consultation. Continue 1 one-to-one sitter for now. CODE STATUS is full code DVT prophylaxis Lovenox Attestations Medical Necessity Statement*: Patient with altered mental status requires close inpatient monitoring and treatment will deemed safe for discharge. Coding Level of Care Code Acute Electric Organ Inspector And Repairer for [facility] Fwd Diagnoses Polysubstance abuse F19.10 Alcohol abuse F10.10 Hypertension I10 COPD (chronic obstructive pulmonary disease) J44.9 URI (upper respiratory infection) J06.9 URI type: unspecified URI Altered mental status R40.0 Altered mental status type: somnolence Sepsis A41.9; R65.20; J96.01 Acute respiratory failure type: with hypoxia Sepsis acute organ dysfunction status: with acute organ dysfunction Sepsis type: sepsis due to unspecified organism Severe sepsis acute organ dysfunction type: acute respiratory failure Severe sepsis shock status: without septic shock Pneumonia J18.9 Laterality: bilateral Lung location: unspecified part of lung Pneumonia type: due to unspecified organism
[2019-10-01] MEDS: lactated ringers 1,000 ML 100 ML IV (18:43)
--- NOTE | 2019-10-01 19:38 | PC.NURSE ---
PT STATED THAT HE HAD RECEIVED A CALL FROM OFFICE OF [facility] WITH [facility] [phone]. THEY TOLD HIM HIS LEUKEMIA WAS BACK. THEY GAVE INFORMATION TO CONTACT OFFICE. CALLED OFFICE AND SPOKE WITH JOSH WHO CONFIRMED HE WAS A PATIENT OF MS. PULLIAM, THEN WAS TRANSFERED TO [facility] NURSE HUSSEIN ALEMAN WHO CONFIRMED SHE SPOKE WITH PT ON 09/29 AND TOLD HIM PER NOTES LEUKEMIA IS EVIDENT AND THEY NEEDED HIM TO HAVE PERIPHERAL SMEAR DONE. SHE ALSO SAID THEY JESSICA FOLLOWING LABS, CBC, CMP, PSA, TSH AND HEPATITIS PANEL.
[2019-10-01] MEDS: enoxaparin 40 mg/0.4 mL Syringe SUBCUT (22:16)
[2019-10-01] MEDS: cefTRIAXone 1,000 MG in sodium chloride 0.9% (plus) 50 ML 100 MG IV (23:55)
[2019-10-02] VITALS (17 sets, daily range): BP systolic 121–169; BP diastolic 76–90; PULSE 85–101; RESP 19–32; TEMP 36.4–37.2; O2SAT 88–94
[2019-10-02] MEDS: metroNIDAZOLE IV 500 MG/100 ML PREMIX 100 MG IV ×3 (04:15→20:53)
[2019-10-02] MEDS: TRAMadol 50 mg Tablet PO ×3 (05:01→18:37)
[2019-10-02] MEDS: pantoprazole DR 40 mg Tablet PO (09:22)
[2019-10-02] MEDS: thiamine 100 mg Tablet PO (09:22)
[2019-10-02] MEDS: atorvastatin 40 mg Tablet 20 MG PO (09:23)
[2019-10-02] MEDS: folic acid 1 mg Tablet PO (09:23)
[2019-10-02] MEDS: lisinopril 20 mg Tablet PO (09:23)
[2019-10-02] MEDS: gabapentin 300 mg Capsule PO ×3 (09:24→20:54)
[2019-10-02] MEDS: multivitamin therapeutic Tablet 1 TAB PO (09:24)
[2019-10-02] MEDS: ipratropium-albuterol 3 mL Neb INHALATION ×4 (09:32→23:49)
[2019-10-02 11:16] LABS: Basophils % 0.3 %; Eosinophils # 0.1 10^3/uL (0.0-0.8); Eosinophils % 1.3 %; Hematocrit 34.6 % (42.0-52.0); Hemoglobin 11.7 g/dL (11.7-16.6); Lymphocytes # 0.7 10^3/uL (0.8-4.8); Mean Corpuscular HGB Conc 33.8 g/dL (30.0-36.0); Mean Corpuscular Hemoglobin 30.6 pg (28.0-34.0); Mean Corpuscular Volume 90.6 fL (80-94); Monocytes # 1.4 10^3/uL (0.2-0.9); Monocytes % 13.7 %; Neutrophils # 7.9 10^3/uL (1.8-7.7); Neutrophils % 75.8 %; Nucleated Red Blood Cells % 0 %; Platelet Count 223 10^3/cmm (130-400); Red Blood Count 3.82 10^6/uL (4.1-5.3); Red Cell Distribution Width 13.1 % (12.1-15.1); White Blood Count 10.4 10^3/uL (4.0-10.0)
[2019-10-02 11:35] LABS: Alanine Aminotransferase 8 U/L (0-41); Albumin Level 2.8 g/dL (3.5-5.2); Alkaline Phosphatase 102 IU/L (40-130); Anion Gap 16.3 (5-19); Aspartate Amino Transferase 15 U/L (0-40); Blood Urea Nitrogen 15 mg/dL (6-20); Calcium 9.1 mg/dL (8.5-10.5); Carbon Dioxide 22 mmol/L (22-29); Chloride 100 mmol/L (98-107); Globulin 3.9 g/dL (1.3-4.6); Glucose 143 mg/dL (65-115); Osmolality Calculated 279 mOsm/kg (285-295); Potassium 3.3 mmol/L (3.5-5.1); Sodium 135 mmol/L (136-145); Total Bilirubin 0.3 mg/dL (0.15-1.2); Total Protein 6.7 g/dL (6.6-8.7)
--- NOTE | 2019-10-02 15:21 | PM.PN ---
Subjective Subjective: Interval history: Patient reports feeling much better this morning. He denies significant shortness of breath or chest pain. He continues to cough. His speech is much more clear. He continues to require 4 L of oxygen. Medications: Reviewed: Yes Vitals/I&O/Wt Last Vital Signs Temp 97.6 F 10/02/19 12:00 Pulse 89 10/02/19 14:47 Resp 20 H 10/02/19 14:47 BP 139/80 10/02/19 12:00 Pulse Ox 91 10/02/19 14:47 10/02/19 10/02/19 10/02/19 06:59 14:59 22:59 Intake Total 1511.667 / 3071.667 Balance 1511.667 / 3071.667 Physical Exam Const: COMMON NORMALS: no apparent distress and oriented x3 Resp: OTHER: Clear lungs. No wheezing appreciated Cardio: COMMON NORMALS: regular rate, regular rhythm and S2 normal heart sound RATE: regular rate RHYTHM: regular rhythm HEART SOUNDS: S2 normal OTHER: No lower extremity edema GI: COMMON NORMALS: normal to inspection, nondistended, normoactive bowel sounds, soft to palpation and non-tender PALPATION: Yes soft Neuro: COMMON NORMALS: oriented x3 and no focal motor deficits Data : 10/02/19 11:10 10/02/19 11:10 A&P Assessment and plan (1) Polysubstance abuse: Status: Acute Code(s): F19.10 - Other psychoactive substance abuse, uncomplicated (2) Alcohol abuse: Status: Acute Code(s): F10.10 - Alcohol abuse, uncomplicated (3) Hypertension: Status: Acute Code(s): I10 - Essential (primary) hypertension (4) COPD (chronic obstructive pulmonary disease): Status: Acute Code(s): J44.9 - Chronic obstructive pulmonary disease, unspecified (5) URI (upper respiratory infection): Status: Inactive Qualifiers: URI type: unspecified URI Qualified Code(s): J06.9 - Acute upper respiratory infection, unspecified Code(s): J06.9 - Acute upper respiratory infection, unspecified (6) Altered mental status: Status: Acute Qualifiers: Altered mental status type: somnolence Qualified Code(s): R40.0 - Somnolence Code(s): R41.82 - Altered mental status, unspecified (7) Sepsis: Resolved Status: Acute Qualifiers: Acute respiratory failure type: with hypoxia Sepsis acute organ dysfunction status: with acute organ dysfunction Sepsis type: sepsis due to unspecified organism Severe sepsis acute organ dysfunction type: acute respiratory failure Severe sepsis shock status: without septic shock Qualified Code(s): A41.9 - Sepsis, unspecified organism; R65.20 - Severe sepsis without septic shock; J96.01 - Acute respiratory failure with hypoxia Code(s): A41.9 - Sepsis, unspecified organism (8) Pneumonia: Status: Acute Qualifiers: Laterality: bilateral Lung location: unspecified part of lung Pneumonia type: due to unspecified organism Qualified Code(s): J18.9 - Pneumonia, unspecified organism Code(s): J18.9 - Pneumonia, unspecified organism Additional A&P Information Assessment and plan (1) Polysubstance abuse: (2) Alcohol abuse: (3) Hypertension: (4) COPD (chronic obstructive pulmonary disease): (5) URI (upper respiratory infection): (6) Altered mental status: (7) Sepsis: (8) Pneumonia: Suspected to be viral but secondary bacterial infection cannot be ruled out. Additional A&P Information #1 Toxic encephalopathy. This is likely secondary to unintentional Xanax overdose. Pneumonia could also play a role. #2 Community-acquired pneumonia. This appears to be viral but secondary bacterial infection cannot be ruled out. Patient denies difficulty swallowing although still could have potentially aspirated during episode of encephalopathy. Continue current antibiotics and if continues to improve we could possibly discharge patient tomorrow. Patient will need to have home O2 evaluation in a.m. #3 COPD, not in exacerbation #4 Hypertension #5: For chronic pain, will resume his tramadol and gabapentin, however at a lower dose. Avoiding opiates for now to prevent further depression of respiratory drive. I do not see any opiates listed on his home medications. #6: Start CIWA for protocol and monitor for alcohol withdrawal. #7: Tobacco abuse. Discussed extensively regarding importance of smoking cessation. Patient voiced understanding and agreed to try nicotine patch. #8: Acute hypoxic and hypercapnic respiratory failure, present on admission. #9: Altered mental status with lethargy and slurred speech. Highly suggestive of self administering benzodiazepine use. Awaiting psychiatric evaluation. CODE STATUS is full code DVT prophylaxis Lovenox Attestations Medical Necessity Statement*: Patient with hypoxic respite failure and concern for benzodiazepine misuse requires close inpatient monitoring, treatment and evaluation. Coding Level of Care Code Acute Pointer Machine Operator for [facility] Fwd Diagnoses Polysubstance abuse F19.10 Alcohol abuse F10.10 Hypertension I10 COPD (chronic obstructive pulmonary disease) J44.9 URI (upper respiratory infection) J06.9 URI type: unspecified URI Altered mental status R40.0 Altered mental status type: somnolence Sepsis A41.9; R65.20; J96.01 Acute respiratory failure type: with hypoxia Sepsis acute organ dysfunction status: with acute organ dysfunction Sepsis type: sepsis due to unspecified organism Severe sepsis acute organ dysfunction type: acute respiratory failure Severe sepsis shock status: without septic shock Pneumonia J18.9 Laterality: bilateral Lung location: unspecified part of lung Pneumonia type: due to unspecified organism
[2019-10-02] MEDS: enoxaparin 40 mg/0.4 mL Syringe SUBCUT (20:54)
[2019-10-02] MEDS: lactated ringers 1,000 ML 100 ML IV (22:31)
[2019-10-02] MEDS: cefTRIAXone 1,000 MG in sodium chloride 0.9% (plus) 50 ML 100 MG IV (22:32)
[2019-10-03] VITALS (15 sets, daily range): BP systolic 117–146; BP diastolic 69–81; PULSE 85–95; RESP 17–24; TEMP 36.4–37; O2SAT 90–94
[2019-10-03] MEDS: ipratropium-albuterol 3 mL Neb INHALATION ×2 (08:30→14:12)
[2019-10-03] MEDS: nicotine 21 mg Patch 1 PATCH TRANSDERMA (10:05)
[2019-10-03] MEDS: thiamine 100 mg Tablet PO (10:07)
[2019-10-03] MEDS: atorvastatin 40 mg Tablet 20 MG PO (10:07)
[2019-10-03] MEDS: lisinopril 20 mg Tablet PO (10:08)
[2019-10-03] MEDS: pantoprazole DR 40 mg Tablet PO (10:08)
[2019-10-03] MEDS: multivitamin therapeutic Tablet 1 TAB PO (10:08)
[2019-10-03] MEDS: gabapentin 300 mg Capsule PO ×2 (10:08→15:38)
[2019-10-03] MEDS: levoFLOXacin 750 mg Tablet PO (10:08)
[2019-10-03] MEDS: folic acid 1 mg Tablet PO (10:09)
[2019-10-03] MEDS: acetaminophen 325 mg Tablet 650 MG PO (10:18)
--- NOTE | 2019-10-03 10:28 | PC.SOCIAL ---
IMM Update Pg 2 of IMM given and explained to patient who verbalized understanding. Copy provided to patient.
--- NOTE | 2019-10-03 15:23 | P.DS_ITS ---
Discharge Providers Date of Admission: 09/28/19 17:40 Date of Discharge: October 03, 2019 Attending Provider at Admission: Nai Shafer MD Attending Provider at Discharge: Morris Ramirez MD Primary Care Provider: Amber Sandoval Diagnoses at Discharge Discharge Diagnosis (1) Polysubstance abuse: Status: Acute (2) Alcohol abuse: Status: Acute (3) Hypertension: Status: Acute (4) COPD (chronic obstructive pulmonary disease): Status: Acute (5) URI (upper respiratory infection): Status: Inactive Qualifiers: URI type: unspecified URI Qualified Code(s): J06.9 - Acute upper respiratory infection, unspecified (6) Altered mental status: Status: Acute Qualifiers: Altered mental status type: somnolence Qualified Code(s): R40.0 - Somnolence (7) Sepsis: Status: Acute Qualifiers: Acute respiratory failure type: with hypoxia Sepsis acute organ dysfunction status: with acute organ dysfunction Sepsis type: sepsis due to unspecified organism Severe sepsis acute organ dysfunction type: acute respiratory failure Severe sepsis shock status: without septic shock Qualified Code(s): A41.9 - Sepsis, unspecified organism; R65.20 - Severe sepsis without septic shock; J96.01 - Acute respiratory failure with hypoxia (8) Pneumonia: Status: Acute Qualifiers: Laterality: bilateral Lung location: unspecified part of lung Pne umonia type: due to unspecified organism Qualified Code(s): J18.9 - Pneumonia, unspecified organism Reason for Visit Reason for Visit: Reason For Visit: [facility] Hospital Course Discharge Summary: Patient with previous history of substance abuse presented with altered mental status secondary to polysubstance abuse. He was diagnosed with bibasilar pneumonia and aspiration secondary to altered mental status delilah ot be ruled out. Apparently he was recently prescribed clonazepam couple of days prior to admission. He was initially treated in ICU and supported with BiPAP and treated with fluids and antibiotics. He gradually improved and was transferred to medical [facility]. To my surprise when I saw him next morning on medical [facility] he was lethargic and slurring his speech and was highly suspected to be under effect of benzodiazepine. Patient and at bedside refused administering home medications. I have initiated one-to-one sitter and next morning patient's mental status significantly improved. I was told by nurses taking care of patient that his would bring him water and would always kiss him in the lips before he would drink water. It was suspected that she would pass medications of his choice to him this way. Psychiatry consultation was requested and patient was seen by Dr. Corbett. Patient deemed able to make his own decisions and he had extensive discussion with patient regarding importance of appropriate medication use. Patient voiced understanding. Dr. Corbett deemed patient safe to be dismissed home and we will discharge patient home. Dr. Corbett okay to continue his home medications except clonazepam. Patient to follow-up with Dr. Jefferson on outpatient basis. This morning patient denies any shortness of breath or chest pain. Reports that his cough is significantly improved. Reports that he is walking without any difficulty. He continues to require oxygen and we will perform home O2 evaluation prior to discharge. I will continue Levaquin for several more days. Physical Exam Const: COMMON NORMALS: no apparent distress and oriented x3 Resp: COMMON NORMALS: normal respiratory effort and clear to auscultation bilaterally AUSCULTATION: clear to auscultation bilaterally Cardio: COMMON NORMALS: regular rate, regular rhythm and S2 normal heart sound RATE: regular rate RHYTHM: regular rhythm HEART SOUNDS: S2 normal OTHER: No lower extremity edema GI: COMMON NORMALS: normal to inspection, nondistended, normoactive bowel sounds, soft to palpation and non-tender PALPATION: Yes soft Neuro: COMMON NORMALS: oriented x3 and no focal motor deficits Discharge Data Data Completed and Pending: Completed Studies During Hospitalization Category Date Time Status CT angio chest PE protcl [id number] Stat Cat Scan 09/28/19 16:[address] head wo con* 7 0450 Urgent Cat Scan 09/28/19 15:42 Completed XR chest 1V beltran ble [id number] Stat Exams 09/28/19 15:42 Completed Pending at discharge Category Date Time Status Blood Culture Sta t Lab 09/28/19 16:08 Results Complete Blood Co unt w/Auto AM LABS Lab 10/03/19 04:00 Ordered Complete Blood Co unt w/Auto AM LABS Lab 10/04/19 04:00 Ordered Complete Blood Co unt w/Auto AM LABS Lab 10/05/19 04:00 Ordered Comprehensive Met abolic Panel AM LA BS Lab 10/03/19 04:00 Ordered Comprehensive Met abolic Panel AM LA BS Lab 10/04/19 04:00 Ordered Comprehensive Met abolic Panel AM LA BS Lab 10/05/19 04:00 Ordered Respiratory Viral Panel PCR Routine Lab 09/30/19 07:30 Received Vitals: Last Vital Signs Temp 97.6 F 10/03/19 12:00 Pulse 94 10/03/19 14:16 Resp 17 10/03/19 14:12 BP 134/80 10/03/19 12:00 Pulse Ox 90 10/03/19 14:12 Discharge Plan Discharge Patient Disposition: Home, Self-Care Condition: Stable Prescriptions: New nicotine 21 mg/24 hr Patch 24 Hour 1 patch transdermal DAILY Qty: 14 RF: 0 thiamine mononitrate (vit B1) [Vitamin B-1 (mononitrate)] 100 mg Tablet 100 mg PO DAILY Qty: 30 RF: 0 levofloxacin 750 mg Tablet 750 mg PO DAILY@0600 Qty: 5 RF: 0 Continued ondansetron HCl [Zofran] 4 mg tablet 4 mg PO QID PRN (Reason: nausea and vomiting) Qty: 14 RF: 0 gabapentin 600 mg tablet 600 mg PO TID RF: 0 lisinopril 20 mg tablet 20 mg PO DAILY RF: 0 doxepin 75 mg capsule 75 mg PO BEDTIME RF: 0 lovastatin 10 mg tablet 10 mg PO DAILY RF: 0 tramadol 50 mg tablet 50 mg PO PRN PRN (Reason: Pain) RF: 0 quetiapine 100 mg tablet 100 mg PO DAILY RF: 0 sildenafil 100 mg tablet 100 mg PO PRN PRN (Reason: Erectile Dysfunction) RF: 0 potassium chloride 20 mEq tablet,ER particles/crystals 20 meq PO BID RF: 0 methocarbamol 750 mg tablet 750 mg PO TID RF: 0 cyproheptadine 2 mg/5 mL syrup 2 mg PO DAILY RF: 0 pantoprazole 40 mg tablet,delayed release (DR/EC) 40 mg PO DAILY RF: 0 montelukast 10 mg tablet 10 mg PO DAILY RF: 0 hydrochlorothiazide 25 mg tablet 25 mg PO DAILY RF: 0 fluticasone propionate 50 mcg/actuation spray,suspension 1 - 2 spray INTRANASAL BID PRN (Reason: UNKNOWN) RF: 0 Spiriva with HandiHaler 18 mcg capsule, w/inhalation device 1 cap INHALATION DAILY RF: 0 pregabalin 25 mg capsule 25 mg PO DAILY RF: 0 diclofenac sodium 1 % gel See Rx Instructions .ROUTE .COMPLEX RF: 0 Discontinued clonazepam 0.5 mg tablet 0.5 mg PO TID RF: 0 Discharge Orders: Discharge Order (Routine); Ordered 10/03/19 Ordered By: Morris Ramirez Referrals: Amber Sandoval FNP [Primary Care Provider] - Fernando Holly DO [Staff Physician] - 4-7 days Discharge Diet: Usual diet Discharge Activity: Increase activity as tolerated Activity Restrictions/Additional Instructions: Please call your doctor or present to emergency department if your condition worsens or you develop diarrhea. Please avoid drinking alcohol or smoking as we have discussed. Discharge Attestations Time Spent in Discharge Care*: greater than 30 min Quality Metrics Clinical Quality Measures During this hospital stay, did patient experience: None Coding Level of Care Code Acute Pairing Machine Operator for g Fwd Diagnoses Polysubstance abuse F19.10 Alcohol abuse F10.10 Hypertension I10 COPD (chronic obstructive pulmonary disease) J44.9 URI (upper respiratory infection) J06.9 URI type: unspecified URI Altered mental status R40.0 Altered mental status type: somnolence Sepsis A41.9; R65.20; J96.01 Acute respiratory failure type: with hypoxia Sepsis acute organ dysfunction status: with acute organ dysfunction Sepsis type: sepsis due to unspecified organism Severe sepsis acute organ dysfunction type: acute respiratory failure Severe sepsis shock status: without septic shock Pneumonia J18.9 Laterality: bilateral Lung location: unspecified part of lung Pneumonia type: due to unspecified organism
--- NOTE | 2019-10-03 15:42 | P.CONIM_ITS ---
Providers/Reason for Consult Consulting Physican/Specialty*: Aric Corbett MD Psychiatry Reason for Consult*: The patient wants to go home. He has been abusing alprazolam and Klonopin but now affirms that he has no intention to endanger himself thusly. Attending Physician: Morris Ramirez MD Primary Care Provider: Amber Sandoval FUR BLOWER OPERATOR Psych Consult HPI History of Present Illness Patient is a 54-year-old male who has had multiple admissions in 2018 and recurring ER visits for chemical dependency, drug abuse, alcohol intoxication and suicidal ideation. Once again, he was found by his , who had left him sleeping in bed for 3 days. She could not arouse him and called coal pipeline operator. He had been prescribed Xanax Klonopin doxepin gabapentin cyproheptadine quetiapine and tramadol. His acknowledged that he may have taken 60 tablets of Xanax together. He originally had hypo-saturation on room air and a Sugey Coma Scale of 12. His initial ABG showed PO2 in the 40s. He also had bilateral infiltrates suggesting pneumonia, no doubt due to 3 days of aspiration of secretions normally swallowed. He was on his way to a respiratory arrest but was medically stabilized in the ER and as an inpatient. Yesterday he was found to be much improved, after it was discovered that his had been smuggling alprazolam or some other sedating compound to him. He was put on a one-to-one and he stabilized. The nurses believe that his fluctuant level of sedation can only be explained by additional doses of some sedating compound, most likely a benzodiazepine. Review of Systems Narrative: Denies: fever, chills, body aches or change in appetite Eyes: Denies: blurry vision or eye discomfort ENMT: Denies: throat pain or dental pain Card: Denies: chest pain Resp: Denies: shortness of breath GI: Denies: vomiting : Denies: painful urination Musc: Denies: neck pain or back pain Skin/Breast: Denies: rash Neuro: Denies: headache Psych: Denies: depression Anirudh/Lymph: Denies: easy bruising All/Imm: Denies: hives Meds Current Medications: Current Medications Generic Name Dose Route Start Last Admin Trade Name Freq PRN Reason Stop Dose Admin Acetaminophen 650 mg 09/28/19 18:24 10/03/19 10:18 Tylenol PO 650 mg Q6H PRN Administration Mild/Mod Pain Or Temp >/= 101 Albuterol/Ipratrop ium 3 ml 09/28/19 19:08 10/03/19 14:12 Duoneb INHALATION 3 ml Q4H.RESPIRATORY P RN Administration SHORTNESS OF JAYDON TH Atorvastatin Calci um 20 mg 09/30/19 09:00 10/03/19 10:07 Lipitor PO 20 mg DAILY JESSICA Administration Enoxaparin Sodium 40 mg 09/28/19 19:15 10/02/19 20:54 Lovenox SUBCUT 40 mg Q24H JESSICA Administration Folic Acid 1 mg 09/30/19 09:00 10/03/19 10:09 Folic Acid PO 1 mg DAILY JESSICA Administration Gabapentin 300 mg 09/29/19 15:00 10/03/19 15:38 Neurontin PO 300 mg TID JESSICA Administration Lactated Ringer's 1,000 mls @ 100 m ls/hr 10/01/19 15:45 10/03/19 08:27 Lactated Ringers IV Not Given .Q10H JESSICA Levofloxacin 750 mg 10/03/19 09:00 10/03/19 10:08 Levaquin PO 750 mg DAILY@0600 JESSICA Administration Protocol Lisinopril 20 mg 09/30/19 09:00 10/03/19 10:08 Prinivil PO 20 mg DAILY JESSICA Administration Multivitamins Ther apeutic 1 tab 09/30/19 09:00 10/03/19 10:08 Multivitamin Tab PO 1 tab DAILY JESSICA Administration Nicotine 1 patch 10/03/19 09:00 10/03/19 10:05 Nicoderm 21 Mg P atch TRANSDERMA 1 patch DAILY JESSICA Administration Pantoprazole Sodiu m 40 mg 09/30/19 09:00 10/03/19 10:08 Protonix PO 40 mg DAILY JESSICA Administration Thiamine Mononitra te 100 mg 09/30/19 09:00 10/03/19 10:07 Vitamin B-1 PO 100 mg DAILY JESSICA Administration PFSH NPU PFSH: Medical History Alcohol abuse Altered mental status COPD (chronic obstructive pulmonary disease) Hypertension Polysubstance abuse Surgical History History of ankle surgery Social History Smoking and tobacco status: current every day smoker Alcohol intake: current Substance/Drug Use: current Other Psychiatric History: Other Psychiatric History: The patient has a treatment relationship with both [facility]. His psychiatrist is Dr. Garcia Mental Status Exam MSE Comments: The patient today presents very differently from that previously described. He is alert and oriented to person, place, time, and situation. Hygiene is disheveled. Sensorium is clear and he understands what we tell him and what's going on around him. The patient maintains appropriate eye contact, is cooperative and relates well to me. Behavior shows no psychomotor agitation. Mood is calm and euthymic. Affect is appropriate to his current mood. Thought processes are slightly scattered but they are free of racing, blocking or looseness of association. Speech is of normal rate and volume, without dysarthria, aprosody or pressure. There is no inordinate latency of response. The patient denies auditory or visual hallucinations or delusions. The patient denies suicidal or homicidal ideation, plan or intent. He exhibits no confusion but there are stretches where he seems not to have any recollection of the chaos he engendered over the last 2 to 3 days. Memory is now intact for remote events. Fund of knowledge is adequate given vocabulary. Insight and judgment were deemed to be good given the recognition of problems and desire for treatment. Vitals/I&O/Wt Last Vital Signs Temp 98.5 F 10/03/19 15:36 Pulse 93 10/03/19 15:36 Resp 17 10/03/19 15:36 BP 146/81 10/03/19 15:36 Pulse Ox 91 10/03/19 15:36 10/02/19 10/03/19 10/03/19 23:59 07:59 15:59 Intake Total 220 398.333 480 Output Total 600 Balance 220 -201.667 480 A&P Additional A&P Information Assessment and plan (1) Polysubstance abuse: (2) Alcohol abuse: Patient now professes to abjure substance abuse, as he now realizes he could have . He intends to follow-up with Dr. Jefferson at [facility]. I also suggest that he pursue recovery program, preferably inpatient in the beginning and outpatient thereafter. (3) Hypertension: (4) COPD (chronic obstructive pulmonary disease): (5) URI (upper respiratory infection): (6) Altered mental status: (7) Sepsis: Resolved (8) Pneumonia: Suspected to be viral but secondary bacterial infection cannot be ruled out. Additional A&P Information #1 Toxic encephalopathy. This is likely secondary to unintentional Xanax overdose. Pneumonia could also play a role. #2 Community-acquired pneumonia. This appears to be viral but secondary bacterial infection cannot be ruled out. Patient denies difficulty swallowing although still could have potentially aspirated during episode of encephalopathy. Continue current antibiotics and if continues to improve we could possibly discharge patient tomorrow. Patient will need to have home O2 evaluation in a.m. #3 COPD, not in exacerbation #4 Hypertension The patient is now competent, per my assessment today, to resume responsibility for his own safety and for his health care. Attestations NPU Medical Necessity Statement*: The patient is ready for discharge today. Time Spent in Patient Care: Greater than 35 minutes (>than 50% of time spent in counselling and/or direct pt care on unit) . Coding Level of Care Code Acute Radio Message Router for Gabriel Mortensen
[2019-10-04 13:37] LABS: Adenovirus Not Detected (Not Detected); Human Metapneumovirus Not Detected (Not Detected); Human Parainflu Virus 1 Not Detected (Not Detected); Human Parainflu Virus 2 Not Detected (Not Detected); Human Parainflu Virus 3 Not Detected (Not Detected); Human Rsv A Not Detected (Not Detected); Influenza A Not Detected (Not Detected); Influenza B Not Detected (Not Detected); Rhinovirus/Enterovirus Not Detected (Not Detected)
== END 2019-10-03 16:30 | disposition home or self-care (01) | DRG 871 ==
LOC: ER 17:58 → ICU 18:04 → MEDSURG 09-30 10:01
PROVIDERS: Admitting Provider Student in an Organized Health Care Education/Training Program; Emergency Provider Emergency Medicine; PCP Nurse Practitioner Family; Visit Provider Internal Medicine
DX: A41.9 Sepsis, unspecified organism (principal); J96.01 Acute respiratory failure with hypoxia; G92 Toxic encephalopathy; J96.02 Acute respiratory failure with hypercapnia; J15.9 Unspecified bacterial pneumonia; F19.10 Other psychoactive substance abuse, uncomplicated; R65.20 Severe sepsis without septic shock; J06.9 Acute upper respiratory infection, unspecified; J44.9 Chronic obstructive pulmonary disease, unspecified; I10 Essential (primary) hypertension; F10.10 Alcohol abuse, uncomplicated; T42.4X5A Adverse effect of benzodiazepines, initial encounter; F32.9 Major depressive disorder, single episode, unspecified; G89.29 Other chronic pain; F45.42 Pain disorder with related psychological factors; Z79.899 Other long term (current) drug therapy; Z79.811 Long term (current) use of aromatase inhibitors; Z79.83 Long term (current) use of bisphosphonates
CPT/HCPCS: 12345; 36415; 36416; 36600; 70450; 71045; 71275; 80053; 80156; 80164; 80178; 80185; 80307; 81001; 82009; 82140; 82550; 82803; 82962; 83605; 83690; 83735; 83880; 84145; 84484; 85025; 85610; 87040; 87086; 87804; 93005; 94640; 94660; 96372; 96374; 96375; 99283; J0456; J0696; J1650; J1940; J2310; J2405; J2543; J3370; J7030; J7040; J7050; Q9967; S0030

== ENCOUNTER 2019-10-05 00:14 | Emergency (ER) | payer MEDICARE, MEDICAID, SELFPAY ==
[2019-10-05 00:25] VITALS: BP 125/89; PULSE 94; RESP 16; TEMP 36.5; O2SAT 97; BMI 30.5
--- NOTE | 2019-10-05 00:51 | W.ED.GENADLT ---
HPI - General Adult General: Chief complaint: General Medical Stated complaint: sob Time Seen by Provider: 10/05/19 00:40 History of Present Illness: HPI narrative: Patient complains of intermittent cough and wheezing at times since his discharge from the hospital yesterday. Patient continues to smoke. Is taking medication as directed he says. Denies shortness of breath chest pains. Was using albuterol Hailer 1 puff twice a day MD complaint: Cough and wheezing Onset (ago): day(s) Severity: mild Associated symptoms: Deny chest pain, dyspnea, headache(s), nausea, rash or vomiting Review of Systems Const: Denies: fever, chills or body aches Eyes: Denies: change in vision or blurry vision ENMT: Denies: throat pain or nasal congestion Card: Denies: chest pain or shortness of breath on exertion Resp: Reports: non-productive cough and wheezing; Denies: shortness of breath, productive cough, stridor, pain on inspiration, change in phlegm color, coughing up blood or chest congestion GI: Denies: abdominal pain, nausea or vomiting : Denies: difficulty urinating Musc: Denies: extremity pain Skin/Breast: Denies: rash Neuro: Denies: headache Psych: Denies: anxiety or depression Anirudh/Lymph: Denies: easy bruising PFSH ED PFSH: Social History Smoking and tobacco status: current every day smoker Alcohol intake: current Physical Exam Const: COMMON NORMALS: no apparent distress, average body habitus and oriented x3 HENMT: COMMON NORMALS: normocephalic HEAD & SCALP: normal to inspection and normocephalic FACE & SINUS: normal facial exam Eye: COMMON NORMALS: conjunctivae normal GENERAL EYE: normal appearance of both eyes CONJUNCTIVA: Yes conjunctivae normal Neck/C-Spine: COMMON NORMALS: no JVD Chest: COMMONS NORMALS: inspection of chest normal Resp: COMMON NORMALS: normal respiratory effort and clear to auscultation bilaterally AUSCULTATION: clear to auscultation bilaterally Cardio: COMMON NORMALS: no JVD, regular rate and regular rhythm RATE: regular rate RHYTHM: regular rhythm GI: COMMON NORMALS: normal to inspection, nondistended, normoactive bowel sounds Extremity: COMMON NORMALS: normal to inspection and full ROM Neuro: COMMON NORMALS: oriented x3 Course Vital Signs: Vital signs: Vital Signs Temperature 97.7 F 10/05/19 00:25 Pulse Rate 94 10/05/19 00:25 Respiratory Rate 16 10/05/19 00:25 Blood Pressure 125/89 10/05/19 00:25 Pulse Oximetry 97 10/05/19 00:25 Discharge Plan Discharge Patient Disposition: Home, Self-Care Clinical Impression: Pneumonia Qualifiers: Pneumonia type: due to unspecified organism Laterality: bilateral Lung location: unspecified part of lung Qualified Code(s): J18.9 - Pneumonia, unspecified organism Condition: Stable Prescriptions: No Action ondansetron HCl [Zofran] 4 mg tablet 4 mg PO QID PRN (Reason: nausea and vomiting) Qty: 14 RF: 0 gabapentin 600 mg tablet 600 mg PO TID RF: 0 lisinopril 20 mg tablet 20 mg PO DAILY RF: 0 doxepin 75 mg capsule 75 mg PO BEDTIME RF: 0 lovastatin 10 mg tablet 10 mg PO DAILY RF: 0 tramadol 50 mg tablet 50 mg PO PRN PRN (Reason: Pain) RF: 0 quetiapine 100 mg tablet 100 mg PO DAILY RF: 0 sildenafil 100 mg tablet 100 mg PO PRN PRN (Reason: Erectile Dysfunction) RF: 0 potassium chloride 20 mEq tablet,ER particles/crystals 20 meq PO BID RF: 0 methocarbamol 750 mg tablet 750 mg PO TID RF: 0 cyproheptadine 2 mg/5 mL syrup 2 mg PO DAILY RF: 0 pantoprazole 40 mg tablet,delayed release (DR/EC) 40 mg PO DAILY RF: 0 montelukast 10 mg tablet 10 mg PO DAILY RF: 0 hydrochlorothiazide 25 mg tablet 25 mg PO DAILY RF: 0 fluticasone propionate 50 mcg/actuation spray,suspension 1 - 2 spray INTRANASAL BID PRN (Reason: UNKNOWN) RF: 0 Spiriva with HandiHaler 18 mcg capsule, w/inhalation device 1 cap INHALATION DAILY RF: 0 pregabalin 25 mg capsule 25 mg PO DAILY RF: 0 diclofenac sodium 1 % gel See Rx Instructions .ROUTE .COMPLEX RF: 0 nicotine 21 mg/24 hr Patch 24 Hour 1 patch transdermal DAILY Qty: 14 RF: 0 levofloxacin 750 mg Tablet 750 mg PO DAILY@0600 Qty: 5 RF: 0 Vitamin B-1 (mononitrate) 100 mg Tablet 100 mg PO DAILY Qty: 30 RF: 0 Discharge Orders: Discharge Order (Routine); Ordered 10/05/19 Ordered By: Shola Benjamin Referrals: Amber Sandoval TOPOGRAPHICAL SURVEYOR [Primary Care Provider] - Discharge Diet: Usual diet Discharge Activity: Increase activity as tolerated Patient Instructions: Community-acquired Pneumonia (ED) Activity Restrictions/Additional Instructions: Continue most present medications. Stop the Periactin liquid antihistamine medicine. Use albuterol/pro-air inhaler 4 puffs 6 times a day. Stop smoking. Use Mucinex to help thin secretions as directed on the label box. Follow-up primary care provider next week drink plenty of fluids. Get rest. Coding Level of Care Code ED Buffing Wheel Raker for Gabriel Mortensen
== END 2019-10-05 00:56 | disposition home or self-care (01) ==
PROVIDERS: Emergency Provider Nurse Practitioner Family; PCP Nurse Practitioner Family
DX: J18.9 Pneumonia, unspecified organism (principal); F17.210 Nicotine dependence, cigarettes, uncomplicated
CPT/HCPCS: 12345; 99281; 99282

== ENCOUNTER 2019-10-27 02:03 | Emergency (ER) | payer MEDICARE, MEDICAID, SELFPAY ==
[2019-10-27 02:04] VITALS: BP 118/62; PULSE 76; RESP 16; O2SAT 97
[2019-10-27 02:08] VITALS: BP 112/78; PULSE 86; RESP 18; TEMP 36.6; O2SAT 93; BMI 29.8
--- NOTE | 2019-10-27 02:13 | ECG_ITS ---
Measurements Intervals [place] Rate: 82 P: 57 MT: 171 QRS: -49 QRSD: 114 T: 53 QT: 380 QTc: 445 SINUS RHYTHM INCOMPLETE RIGHT BUNDLE BRANCH BLOCK [90+ ms QRS DURATION, TERMINAL R IN V1/V2, 4 40+ ms S IN I/aVL/V4/V5/V6] LEFT ANTERIOR FASCICULAR BLOCK [QRS AXIS <= -45, QR IN I, RS IN II] Compared to ECG 09/28/2019 22:25:14 Incomplete right bundle-branch block now present Left anterior fascicular block now present Sinus tachycardia no longer present Electronically Signed On 10-27-2019 21:10:56 CDT by Shazia Mosley M.D. [id number]
--- NOTE | 2019-10-27 02:13 | XRR_ITS ---
PROCEDURE INFORMATION: Exam: XR Chest, 1 View Exam date and time: 10/27/2019 2:42 AM Age: 54 years old Clinical indication: Chest pain; Type not specified; Additional info: Cp TECHNIQUE: Imaging protocol: XR of the chest Views: 1 view. COMPARISON: CR XR chest 1V portable [id number] 09/28/2019 3:40 PM FINDINGS: Lungs: There are increased bilateral interstitial markings present, findings could represent a continuing interstitial pneumonitis. However, there is some improvement in aeration in the right hemithorax compared to 09/28/2019. Pleural space: Unremarkable. No pleural effusion. No pneumothorax. Heart/Mediastinum: Unremarkable. No cardiomegaly. Bones/joints: Unremarkable. XR/XR chest 1V portable [id number] IMPRESSION: 1. Increased interstitial markings may represent continuing interstitial pneumonitis. 2. There is an improvement in aeration in the right hemithorax compared with 09/28/2019.
--- NOTE | 2019-10-27 02:21 | W.ED.CHESTPA ---
HPI - Chest Pain General: Chief Complaint: Chest Pain Stated Complaint: BURNING OF THE CHEST Time Seen by Provider: 10/27/19 02:08 History of Present Illness: HPI narrative: 54-year-old male well-known to the ER. He presents with a burning sensation in his chest. He is intoxicated, and it is difficult to get much accurate information otherwise out of him. He says that he has had this sensation for 3 days. He was recently treated as an inpatient for pneumonia. MD complaint: chest discomfort Onset (ago): day(s) (3) Timing of current episode: episodic Prior episodes: Yes Onset: during rest Quality: burning Relieving factors: nothing Exacerbating factors: nothing Context: recent illness Review of Systems General: Reports: ROS unobtainable due to mental status PFSH ED PFSH: Social History Smoking and tobacco status: current every day smoker Alcohol intake: current Physical Exam Const: GENERAL APPEARANCE: well developed and lethargic ORIENTATION/CONSCIOUSNESS: Yes oriented to person, Yes oriented to place and Yes lethargic; not oriented to time HENMT: COMMON NORMALS: normocephalic, external ears normal and external nose normal HEAD & SCALP: normocephalic FACE & SINUS: normal facial exam NOSE: external nose normal and no nasal discharge EXTERNAL EAR: Yes external ears normal MOUTH: tongue normal Eye: COMMON NORMALS: PERRL, EOMs intact bilaterally and conjunctivae normal EYELID: eyelids normal CONJUNCTIVA: Yes conjunctivae normal PUPIL: Yes PERRL Neck/C-Spine: COMMON NORMALS: full ROM GENERAL: No tracheal deviation Chest: COMMONS NORMALS: inspection of chest normal CHEST: No tenderness Resp: EFFORT & INSPECTION: No tachypneic, No respiratory distress, No retractions, No uses accessory muscles and No tracheal deviation AUSCULTATION: no rhonchi, wheezes and lung sounds not diminished Cardio: COMMON NORMALS: regular rate and regular rhythm RATE: regular rate RHYTHM: regular rhythm HEART SOUNDS: no murmurs PERIPHERAL PULSES: radial pulses present GI: INSPECTION: No abdominal distension AUSCULTATION: No hyperactive bowel sounds and No hypoactive bowel sounds PALPATION: No guarding and No rigid PERCUSSION: no dullness to percussion and no tympanic to percussion Neuro: SENSORIUM/ORIENTATION: Yes oriented to person, Yes oriented to place, No oriented to time and Yes lethargic Psych: APPEARANCE: Yes grossly normal ATTITUDE: Yes calm SPEECH: Yes slurred ATTENTION/CONCENTRATION: Yes attention grossly impaired Skin: COMMON NORMALS: no rashes or lesions noted GENERAL SKIN EXAM: no rashes or lesions noted Course Vital Signs: Vital signs: Vital Signs Temperature 97.9 F 10/27/19 02:08 Pulse Rate 86 10/27/19 02:08 Respiratory Rate 18 10/27/19 02:08 Blood Pressure 112/78 10/27/19 02:08 Pulse Oximetry 93 10/27/19 02:08 MDM - Chest Pain MDM Narrative: Medical decision making narrative: Sam comes in with 3 days worth of chest burning/discomfort. He is resting comfortably with completely normal vitals. He is intoxicated with alcohol. His chest x-ray has cleared from his last chest x-ray. He is afebrile. His white blood cell count is 7. His troponin is 7. His EKG shows no acute ST changes. It has a sinus rhythm with an incomplete right bundle branch block. He was given a GI cocktail here. He will be discharged to home. Lab Data: Labs: Lab Results 10/27/19 10/27/19 10/27/19 Range/Units 02:17 02:17 02:17 WBC 7.0 (4.0-10.0) 10^3/ uL RBC 4.36 (4.1-5.3) 10^6/u L Hgb 13.8 (11.7-16.6) g/dL Hct 41.8 L (42.0-52.0) % MCV 95.9 H (80-94) fL MCH 31.7 (28.0-34.0) pg MCHC 33.0 (30.0-36.0) g/dL RDW 13.7 (12.1-15.1) % Plt Count 244 (130-400) 10^3/c mm MPV 10.0 (7.4-10.4) fL Neut % (Auto) 47.9 % Lymph % (Auto) 39.3 % Thayer % (Auto) 8.7 % Eos % (Auto) 2.7 % Baso % (Auto) 1.1 % Neut # (Auto) 3.3 (1.8-7.7) 10^3/u L Lymph # (Auto) 2.7 (0.8-4.8) 10^3/u L Thayer # (Auto) 0.6 (0.2-0.9) 10^3/u L Eos # (Auto) 0.2 (0.0-0.8) 10^3/u L Baso # (Auto) 0.1 (0.0-0.1) 10^3/u L Nucleated RBC % (a uto) 0 % Nucleated RBCs # 0.0 /100WBC PT 12.90 (10.5-13.3) SECO NDS INR 0.94 (0.8-1.2) Sodium 146 H (136-145) mmol/L Potassium 3.4 L (3.5-5.1) mmol/L Chloride 107 (98-107) mmol/L Carbon Dioxide 24 (22-29) mmol/L Anion Gap 18.4 (5-19) BUN 11 (6-20) mg/dL Creatinine 0.7 (0.7-1.2) mg/dL GFR Calculation 116.7 (90-130) mL/min Glucose 100 (65-115) mg/dL Calculated Osmolal ity 298 H (285-295) mOsm/k g Calcium 9.2 (8.5-10.5) mg/dL Total Bilirubin 0.2 (0.15-1.2) mg/dL AST 23 (0-40) U/L ALT 14 (0-41) U/L Alkaline Phosphata se 116 (40-130) IU/L Troponin T Baselin e (0-15) ng/mL Total Protein 7.3 (6.6-8.7) g/dL Albumin 4.4 (3.5-5.2) g/dL Globulin 2.9 (1.3-4.6) g/dL Ethyl Alcohol 189 H (0-10) mg/dL 10/27/19 Range/Units 02:17 WBC (4.0-10.0) 10^3/ uL RBC (4.1-5.3) 10^6/u L Hgb (11.7-16.6) g/dL Hct (42.0-52.0) % MCV (80-94) fL MCH (28.0-34.0) pg MCHC (30.0-36.0) g/dL RDW (12.1-15.1) % Plt Count (130-400) 10^3/c mm MPV (7.4-10.4) fL Neut % (Auto) % Lymph % (Auto) % Thayer % (Auto) % Eos % (Auto) % Baso % (Auto) % Neut # (Auto) (1.8-7.7) 10^3/u L Lymph # (Auto) (0.8-4.8) 10^3/u L Thayer # (Auto) (0.2-0.9) 10^3/u L Eos # (Auto) (0.0-0.8) 10^3/u L Baso # (Auto) (0.0-0.1) 10^3/u L Nucleated RBC % (a uto) % Nucleated RBCs # /100WBC PT (10.5-13.3) SECO NDS INR (0.8-1.2) Sodium (136-145) mmol/L Potassium (3.5-5.1) mmol/L Chloride (98-107) mmol/L Carbon Dioxide (22-29) mmol/L Anion Gap (5-19) BUN (6-20) mg/dL Creatinine (0.7-1.2) mg/dL GFR Calculation (90-130) mL/min Glucose (65-115) mg/dL Calculated Osmolal ity (285-295) mOsm/k g Calcium (8.5-10.5) mg/dL Total Bilirubin (0.15-1.2) mg/dL AST (0-40) U/L ALT (0-41) U/L Alkaline Phosphata se (40-130) IU/L Troponin T Baselin e 7 (0-15) ng/mL Total Protein (6.6-8.7) g/dL Albumin (3.5-5.2) g/dL Globulin (1.3-4.6) g/dL Ethyl Alcohol (0-10) mg/dL Discharge Plan Discharge Patient Disposition: Home, Self-Care Clinical Impression: Atypical chest pain Alcohol intoxication Qualifiers: Complication of substance-induced condition: uncomplicated Qualified Code(s): F10.920 - Alcohol use, unspecified with intoxication, uncomplicated Condition: Stable Prescriptions: No Action ondansetron HCl [Zofran] 4 mg tablet 4 mg PO QID PRN (Reason: nausea and vomiting) Qty: 14 RF: 0 gabapentin 600 mg tablet 600 mg PO TID RF: 0 lisinopril 20 mg tablet 20 mg PO DAILY RF: 0 doxepin 75 mg capsule 75 mg PO BEDTIME RF: 0 lovastatin 10 mg tablet 10 mg PO DAILY RF: 0 tramadol 50 mg tablet 50 mg PO PRN PRN (Reason: Pain) RF: 0 quetiapine 100 mg tablet 100 mg PO DAILY RF: 0 sildenafil 100 mg tablet 100 mg PO PRN PRN (Reason: Erectile Dysfunction) RF: 0 potassium chloride 20 mEq tablet,ER particles/crystals 20 meq PO BID RF: 0 methocarbamol 750 mg tablet 750 mg PO TID RF: 0 cyproheptadine 2 mg/5 mL syrup 2 mg PO DAILY RF: 0 pantoprazole 40 mg tablet,delayed release (DR/EC) 40 mg PO DAILY RF: 0 montelukast 10 mg tablet 10 mg PO DAILY RF: 0 hydrochlorothiazide 25 mg tablet 25 mg PO DAILY RF: 0 fluticasone propionate 50 mcg/actuation spray,suspension 1 - 2 spray INTRANASAL BID PRN (Reason: UNKNOWN) RF: 0 Spiriva with HandiHaler 18 mcg capsule, w/inhalation device 1 cap INHALATION DAILY RF: 0 pregabalin 25 mg capsule 25 mg PO DAILY RF: 0 diclofenac sodium 1 % gel See Rx Instructions .ROUTE .COMPLEX RF: 0 nicotine 21 mg/24 hr Patch 24 Hour 1 patch transdermal DAILY Qty: 14 RF: 0 levofloxacin 750 mg Tablet 750 mg PO DAILY@0600 Qty: 5 RF: 0 Vitamin B-1 (mononitrate) 100 mg Tablet 100 mg PO DAILY Qty: 30 RF: 0 Discharge Orders: Discharge Order (Routine); Ordered 10/27/19 Ordered By: Artem Ovalle Referrals: Amber Sandoval, [employer] [Primary Care Provider] - 4-7 days Discharge Diet: Advance as tolerated Discharge Activity: Increase activity as tolerated Patient Instructions: Chest Pain (ED), Alcohol Intoxication (ED) Activity Restrictions/Additional Instructions: Avoid the use of alcohol. Return for other concerning symptoms. Coding Level of Care Code ED Oncology Physician Assistant for g Fwd Exam Comprehensive
[2019-10-27 02:32] LABS: Basophils # 0.1 10^3/uL (0.0-0.1); Basophils % 1.1 %; Eosinophils # 0.2 10^3/uL (0.0-0.8); Eosinophils % 2.7 %; Hematocrit 41.8 % (42.0-52.0); Hemoglobin 13.8 g/dL (11.7-16.6); Lymphocytes # 2.7 10^3/uL (0.8-4.8); Lymphocytes % 39.3 %; Mean Corpuscular Hemoglobin 31.7 pg (28.0-34.0); Mean Corpuscular Volume 95.9 fL (80-94); Monocytes # 0.6 10^3/uL (0.2-0.9); Monocytes % 8.7 %; Neutrophils # 3.3 10^3/uL (1.8-7.7); Neutrophils % 47.9 %; Nucleated Red Blood Cells % 0 %; Platelet Count 244 10^3/cmm (130-400); Red Blood Count 4.36 10^6/uL (4.1-5.3); Red Cell Distribution Width 13.7 % (12.1-15.1)
--- NOTE | 2019-10-27 02:44 | PC.NURSE ---
Received patient to ER via ems with complaint of chest burning. Patient with etoh on board and states that he had pneumonia 2 weeks ago.
[2019-10-27 02:49] LABS: INR 0.94 (0.8-1.2)
[2019-10-27 02:52] LABS: Alanine Aminotransferase 14 U/L (0-41); Albumin Level 4.4 g/dL (3.5-5.2); Alcohol Level 189 mg/dL (0-10); Alkaline Phosphatase 116 IU/L (40-130); Anion Gap 18.4 (5-19); Aspartate Amino Transferase 23 U/L (0-40); Blood Urea Nitrogen 11 mg/dL (6-20); Calcium 9.2 mg/dL (8.5-10.5); Carbon Dioxide 24 mmol/L (22-29); Chloride 107 mmol/L (98-107); Creatinine Clr Calc Pharmacy 144.1267; Globulin 2.9 g/dL (1.3-4.6); Glomerular Filtration Rate 116.7 mL/min (90-130); Glucose 100 mg/dL (65-115); Osmolality Calculated 298 mOsm/kg (285-295); Potassium 3.4 mmol/L (3.5-5.1); Sodium 146 mmol/L (136-145); Total Bilirubin 0.2 mg/dL (0.15-1.2); Total Protein 7.3 g/dL (6.6-8.7)
[2019-10-27] MEDS: lidocaine 2% viscous 15 ML, aluminum-mag hydrox-simethicon 30 ML, sucralfate oral liq 1 GM PO (02:52)
[2019-10-27] MEDS: ondansetron 2 mg/ML SDV 2 mL 4 MG IVP (02:53)
[2019-10-27 02:54] LABS: Troponin(5th) Baseline 7 ng/mL (0-15)
[2019-10-27] MEDS: sodium chloride 0.9% 500 ML 999 ML IV (02:54)
[2019-10-27 03:04] VITALS: BP 118/70; PULSE 82; RESP 16; O2SAT 98
[2019-10-27 04:04] VITALS: BP 122/70; PULSE 74; RESP 16; O2SAT 97
[2019-10-27 06:32] VITALS: BP 112/66; PULSE 80; RESP 14; O2SAT 98
== END 2019-10-27 07:21 | disposition home or self-care (01) ==
PROVIDERS: Emergency Provider Emergency Medicine; PCP Nurse Practitioner Family
DX: R07.89 Other chest pain (principal); F10.920 Alcohol use, unspecified with intoxication, uncomplicated; F17.200 Nicotine dependence, unspecified, uncomplicated; J44.9 Chronic obstructive pulmonary disease, unspecified
CPT/HCPCS: 12345; 71045; 80053; 80307; 84484; 85025; 85610; 93005; 96361; 96374; 96375; 99283; 99284; J2405; J3411; J7040

== ENCOUNTER 2019-11-22 07:33 | Emergency (ER) | payer MEDICARE, MEDICAID, SELFPAY ==
[2019-11-22 07:35] VITALS: BP 108/66; PULSE 107; RESP 16; TEMP 36.9; O2SAT 95; BMI 29.8
--- NOTE | 2019-11-22 07:36 | XR_ITS ---
WS: [id number] PORTABLE CHEST HISTORY: pneumonia COMPARISON: 10/27/2019 Mildly coarsened interstitial lung parenchyma. Probably on the basis of smoking or mild diffuse pneum onitis. Similar to the prior study. No pneumonia. No pleural effusion or pneumothorax. Cardiac size: Normal. Mediastinum/Aorta: Mild atherosclerosis aorta. No osseous abnormality seen. XR/XR chest 1V portable [id number] IMPRESSION: 1. No focal pneumonia. 2. Mild patchy areas of consolidation are probably the residual of pneumonia d escribed on 09/28/2019 for the underlying chronic lung disease. Improved aeration since the prior CT of 09/28/2019.
--- NOTE | 2019-11-22 07:38 | W.ED.PSYCH ---
HPI - Psych General: Chief Complaint: Psychiatric Symptoms Stated Complaint: SI/ ANXIETY Time Seen by Provider: 11/22/19 07:36 Source: patient and EMS Limitations: no limitations History of Present Illness: HPI Narrative: 54-year-old male who is well-known to the ER states he got an argument with his this morning and was very anxious. He had a brief moment of suicidality but states he is no longer suicidal. He denies any plan. He does have chronic pain and complains of back pain that is chronic in nature. Denies any worsening or improving factors. Review of Systems Const: Denies: fever, chills, body aches or change in appetite Eyes: Denies: blurry vision or eye discomfort ENMT: Denies: throat pain or dental pain Card: Denies: chest pain Resp: Denies: shortness of breath GI: Denies: abdominal pain, nausea, vomiting or diarrhea : Denies: painful urination Musc: Denies: neck pain or back pain Skin/Breast: Denies: rash Neuro: Denies: headache Psych: Reports: anxiety Anirudh/Lymph: Denies: easy bruising All/Imm: Denies: hives PFS ED PFSH: Medical History Alcohol abuse Altered mental status COPD (chronic obstructive pulmonary disease) Hypertension Polysubstance abuse Surgical History History of ankle surgery Social History Smoking and tobacco status: current every day smoker Alcohol intake: current Physical Exam Const: COMMON NORMALS: no apparent distress, oriented x3 and healthy appearing HENMT: COMMON NORMALS: normocephalic and head/scalp atraumatic HEAD & SCALP: normocephalic and atraumatic Eye: COMMON NORMALS: PERRL and EOMs intact bilaterally PUPIL: Yes PERRL Neck/C-Spine: COMMON NORMALS: full ROM and supple Chest: COMMONS NORMALS: inspection of chest normal and palpation of chest normal Resp: COMMON NORMALS: normal respiratory effort, no retractions, no use of accessory muscles and clear to auscultation bilaterally AUSCULTATION: clear to auscultation bilaterally Cardio: COMMON NORMALS: regular rate, regular rhythm and no murmurs RATE: regular rate RHYTHM: regular rhythm GI: COMMON NORMALS: normal to inspection, nondistended, normoactive bowel sounds, soft to palpation, non-tender and no masses PALPATION: Yes soft Extremity: COMMON NORMALS: normal to inspection and full ROM Neuro: COMMON NORMALS: oriented x3, moves all extremities and no focal motor deficits Psych: COMMON NORMALS: mental status grossly normal, thought process normal and cooperative THOUGHT PROCESS: normal thought process Skin: COMMON NORMALS: no rashes or lesions noted and no wounds GENERAL SKIN EXAM: no rashes or lesions noted MDM - Psych MDM Narrative: Medical decision making narrative: Patient presents here with alcohol intoxication along with chronic pain. Patient also has depression. Patient seen by Dr. Cornelius in the ER and he is not suicidal and Dr. Cornelius agrees with me that patient is stable for discharge is not an imminent threat to self. Patient is to follow-up with primary care doctor in 3 to 5 days return to ER if worsening. Lab Data: Labs: Lab Results 11/22/19 11/22/19 Range/Units 07:58 07:58 WBC 5.3 (4.0-10.0) 10^3/ uL RBC 3.98 L (4.1-5.3) 10^6/u L Hgb 12.5 (11.7-16.6) g/dL Hct 38.4 L (42.0-52.0) % MCV 96.5 H (80-94) fL MCH 31.4 (28.0-34.0) pg MCHC 32.6 (30.0-36.0) g/dL RDW 13.8 (12.1-15.1) % Plt Count 237 (130-400) 10^3/c mm MPV 10.7 H (7.4-10.4) fL Neut % (Auto) 47.2 % Lymph % (Auto) 36.9 % Addison % (Auto) 10.4 % Eos % (Auto) 3.8 % Baso % (Auto) 1.1 % Neut # (Auto) 2.5 (1.8-7.7) 10^3/u L Lymph # (Auto) 2.0 (0.8-4.8) 10^3/u L Addison # (Auto) 0.6 (0.2-0.9) 10^3/u L Eos # (Auto) 0.2 (0.0-0.8) 10^3/u L Baso # (Auto) 0.1 (0.0-0.1) 10^3/u L Nucleated RBC % (a uto) 0 % Nucleated RBCs # 0.0 /100WBC Sodium 148 H (136-145) mmol/L Potassium 3.6 (3.5-5.1) mmol/L Chloride 111 H (98-107) mmol/L Carbon Dioxide 24 (22-29) mmol/L Anion Gap 16.6 (5-19) BUN 22 H (6-20) mg/dL Creatinine 0.7 (0.7-1.2) mg/dL GFR Calculation 116.7 (90-130) mL/min Glucose 103 (65-115) mg/dL Calculated Osmolal ity 303 H (285-295) mOsm/k g Calcium 9.1 (8.5-10.5) mg/dL Total Bilirubin 0.2 (0.15-1.2) mg/dL AST 19 (0-40) U/L ALT 14 (0-41) U/L Alkaline Phosphata se 93 (40-130) IU/L Total Protein 6.7 (6.6-8.7) g/dL Albumin 4.1 (3.5-5.2) g/dL Globulin 2.6 (1.3-4.6) g/dL Salicylates < 0.3 L (3-10) mg/dL Acetaminophen < 5.0 L (10-30) ug/mL Ethyl Alcohol 132 H (0-10) mg/dL Imaging Data^: CXR: Radiologist's impression: [address] [address] XRay Report Signed Patient: Sam Marroquin Unit #: [id number] : 1965 Age/Sex: 54 / M ADM Date: 11/22/19 Loc: ER Room/Bed: Attending Dr: Ordering Provider/Ordering MD: Remedios Cruz MD Date of Service: 11/22/19 Procedure(s): XR chest 1V portable [id number] Accession Number(s): [id number] Report Number: [id number] WS: [id number] PORTABLE CHEST HISTORY: pneumonia COMPARISON: 10/27/2019 Mildly coarsened interstitial lung parenchyma. Probably on the basis of smoking or mild diffuse pneumonitis. Similar to the prior study. No pneumonia. No pleural effusion or pneumothorax. Cardiac size: Normal. Mediastinum/Aorta: Mild atherosclerosis aorta. No osseous abnormality seen. XR/XR chest 1V portable [id number] IMPRESSION: 1. No focal pneumonia. 2. Mild patchy areas of consolidation are probably the residual of pneumonia described on 09/28/2019 for the underlying chronic lung disease. Improved aeration since the prior CT of 09/28/2019. Discharge Plan Discharge Patient Disposition: Home, Self-Care Clinical Impression: Alcohol abuse Depression Qualifiers: Depression Type: unspecified Qualified Code(s): F32.9 - Major depressive disorder, single episode, unspecified Condition: Stable Prescriptions: No Action levofloxacin 750 mg tablet 500 mg PO DAILY RF: 0 fluticasone propion-salmeterol 250-50 mcg/dose blister with device 1 inh INHALATION BID RF: 0 albuterol sulfate 2.5 mg /3 mL (0.083 %) solution for nebulization 2.5 mg inhalation TID RF: 0 [place] 5-325 mg Tablet 1 tab PO Q4H PRN (Reason: Pain) RF: 0 clonazepam 0.5 mg Tablet 0.5 mg PO TID RF: 0 baclofen 20 mg Tablet 20 mg PO TID RF: 0 diclofenac sodium 75 mg tablet,delayed release (DR/EC) 75 mg PO BID PRN (Reason: Back Pain) RF: 0 omeprazole 20 mg Tablet,Delayed Release (Dr/Ec) 20 mg PO DAILY RF: 0 ondansetron HCl [Zofran] 4 mg tablet 4 mg PO QID PRN (Reason: nausea and vomiting) Qty: 14 RF: 0 gabapentin 600 mg tablet 600 mg PO TID RF: 0 lisinopril 20 mg tablet 20 mg PO DAILY RF: 0 doxepin 75 mg capsule 75 mg PO BEDTIME RF: 0 lovastatin 10 mg tablet 10 mg PO DAILY RF: 0 tramadol 50 mg tablet 50 mg PO Q6H PRN (Reason: Pain) RF: 0 quetiapine 100 mg tablet 100 mg PO DAILY RF: 0 sildenafil 100 mg tablet 100 mg PO PRN PRN (Reason: Erectile Dysfunction) RF: 0 potassium chloride 20 mEq tablet,ER particles/crystals 20 meq PO BID RF: 0 methocarbamol 750 mg tablet 750 mg PO TID RF: 0 cyproheptadine 2 mg/5 mL syrup 2 mg PO DAILY RF: 0 pantoprazole 40 mg tablet,delayed release (DR/EC) 40 mg PO DAILY RF: 0 montelukast 10 mg tablet 10 mg PO DAILY RF: 0 hydrochlorothiazide 25 mg tablet 25 mg PO DAILY RF: 0 fluticasone propionate 50 mcg/actuation spray,suspension 1 - 2 spray INTRANASAL BID PRN (Reason: UNKNOWN) RF: 0 Spiriva with HandiHaler 18 mcg capsule, w/inhalation device 1 cap INHALATION DAILY RF: 0 pregabalin 25 mg capsule 25 mg PO TID RF: 0 diclofenac sodium 1 % gel See Rx Instructions .ROUTE .COMPLEX RF: 0 nicotine 21 mg/24 hr Patch 24 Hour 1 patch transdermal DAILY Qty: 14 RF: 0 thiamine mononitrate (vit B1) [Vitamin B-1 (mononitrate)] 100 mg Tablet 100 mg PO DAILY Qty: 30 RF: 0 Discharge Orders: Discharge Order (Routine); Ordered 11/22/19 Ordered By: Remedios Cruz Referrals: Amber Sandoval, [employer] ANALYST [Primary Care Provider] - Discharge Diet: Advance as tolerated Discharge Activity: Resume usual activity Patient Instructions: Depression (ED) Coding Level of Care Code ED Home Economist Consumer Service for Chg Fwd Exam Comprehensive
[2019-11-22 07:40] VITALS: RESP 18
[2019-11-22 08:05] LABS: Basophils # 0.1 10^3/uL (0.0-0.1); Basophils % 1.1 %; Eosinophils # 0.2 10^3/uL (0.0-0.8); Eosinophils % 3.8 %; Hematocrit 38.4 % (42.0-52.0); Hemoglobin 12.5 g/dL (11.7-16.6); Lymphocytes % 36.9 %; Mean Corpuscular HGB Conc 32.6 g/dL (30.0-36.0); Mean Corpuscular Hemoglobin 31.4 pg (28.0-34.0); Mean Corpuscular Volume 96.5 fL (80-94); Mean Platelet Volume 10.7 fL (7.4-10.4); Monocytes # 0.6 10^3/uL (0.2-0.9); Monocytes % 10.4 %; Neutrophils # 2.5 10^3/uL (1.8-7.7); Neutrophils % 47.2 %; Nucleated Red Blood Cells % 0 %; Platelet Count 237 10^3/cmm (130-400); Red Blood Count 3.98 10^6/uL (4.1-5.3); Red Cell Distribution Width 13.8 % (12.1-15.1); White Blood Count 5.3 10^3/uL (4.0-10.0)
[2019-11-22 08:18] LABS: Alanine Aminotransferase 14 U/L (0-41); Albumin Level 4.1 g/dL (3.5-5.2); Alcohol Level 132 mg/dL (0-10); Alkaline Phosphatase 93 IU/L (40-130); Anion Gap 16.6 (5-19); Aspartate Amino Transferase 19 U/L (0-40); Blood Urea Nitrogen 22 mg/dL (6-20); Calcium 9.1 mg/dL (8.5-10.5); Carbon Dioxide 24 mmol/L (22-29); Chloride 111 mmol/L (98-107); Creatinine Clr Calc Pharmacy 144.1267; Globulin 2.6 g/dL (1.3-4.6); Glomerular Filtration Rate 116.7 mL/min (90-130); Glucose 103 mg/dL (65-115); Osmolality Calculated 303 mOsm/kg (285-295); Potassium 3.6 mmol/L (3.5-5.1); Sodium 148 mmol/L (136-145); Total Bilirubin 0.2 mg/dL (0.15-1.2); Total Protein 6.7 g/dL (6.6-8.7)
[2019-11-22 08:19] LABS: Acetaminophen < 5.0 ug/mL (10-30); Salicylate < 0.3 mg/dL (3-10)
[2019-11-22] MEDS: ketorolac 30 mg/mL INJ IM (08:22)
[2019-11-22 10:19] VITALS: RESP 16; O2SAT 98
--- NOTE | 2019-11-22 19:19 | P.CONIM_ITS ---
Providers/Reason for Consult Consulting Physican/Specialty*: Alan Cornelius MD. Psychiatry. Reason for Consult*: Evaluation of safety for discharge. Primary Care Provider: Amber Sandoval [facility] Psych Consult HPI History of Present Illness Sam Marroquin is a 54 year old male who presents to the emergency room reporting that he had a problem with his pain getting out of control. His pain got so bad that he argues that he was having thoughts to hurt himself. He came to the emergency room for assistance with his pain, but the treatment team here has had difficulty with him in the past and was not planning on giving him any opiates. Ultimately, he decided he wanted to be discharged and because he had mentioned killing himself earlier, they wanted this conventional mortgage underwriter?s opinion on the case. The patient reports he no longer feels that way but ultimately, he is accepting the fact that on the 6th of this month he has an appointment with a pain management office and hopefully there will be definitive treatment there. He denies depression or any current psychiatric issues that might warrant further hospitalization and treatment. We reviewed some of his past documentation including his last evaluation which can be seen below for some backdrop of his interface with [facility]. Per recent [facility] eval 10/03/19: Consulting Physican/Specialty*: Aric Corbett MD Psychiatry Reason for Consult*: The patient wants to go home. He has been abusing alprazolam and Klonopin but now affirms that he has no intention to endanger himself thusly. Attending Physician: Morris Ramirez MD Primary Care Provider: Amber Sandoval [employer] Psych Consult HPI History of Present Illness Patient is a 54-year-old male who has had multiple admissions in 2018 and recurring ER visits for chemical dependency, drug abuse, alcohol intoxication and suicidal ideation. Once again, he was found by his , who had left him sleeping in bed for 3 days. She could not arouse him and called slip cover estimator. He had been prescribed Xanax Klonopin doxepin gabapentin cyproheptadine quetiapine and tramadol. His acknowledged that he may have taken 60 tablets of Xanax together. He originally had hypo-saturation on room air and a [place] Coma Scale of 12. His initial ABG showed PO2 in the 40s. He also had bilateral infiltrates suggesting pneumonia, no doubt due to 3 days of aspiration of secretions normally swallowed. He was on his way to a respiratory arrest but was medically stabilized in the ER and as an inpatient. Yesterday he was found to be much improved, after it was discovered that his had been smuggling alprazolam or some other sedating compound to him. He was put on a one-to-one and he stabilized. The nurses believe that his fluctuant level of sedation can only be explained by additional doses of some sedating compound, most likely a benzodiazepine. Review of Systems Narrative: Denies: fever, chills, body aches or change in appetite Eyes: Denies: blurry vision or eye discomfort ENMT: Denies: throat pain or dental pain Card: Denies: chest pain Resp: Denies: shortness of breath GI: Denies: vomiting : Denies: painful urination Musc: Denies: neck pain or back pain Skin/Breast: Denies: rash Neuro: Denies: headache Psych: Denies: depression Anirudh/Lymph: Denies: easy bruising All/Imm: Denies: hives Meds Current Medications: Current Medications Generic Name Dose Route Start Last Admin Trade Name Freq PRN Reason Stop Dose Admin Acetaminophen 650 mg 09/28/19 18:24 10/03/19 10:18 Tylenol PO 650 mg Q6H PRN Administration Mild/Mod Pain Or Temp >/= 101 Albuterol/Ipratrop ium 3 ml 09/28/19 19:08 10/03/19 14:12 Duoneb INHALATION 3 ml Q4H.RESPIRATORY P RN Administration SHORTNESS OF JAYDON TH Atorvastatin Calci um 20 mg 09/30/19 09:00 10/03/19 10:07 Lipitor PO 20 mg DAILY JESSICA Administration Enoxaparin Sodium 40 mg 09/28/19 19:15 10/02/19 20:54 Lovenox SUBCUT 40 mg Q24H JESSICA Administration Folic Acid 1 mg 09/30/19 09:00 10/03/19 10:09 Folic Acid PO 1 mg DAILY JESSICA Administration Gabapentin 300 mg 09/29/19 15:00 10/03/19 15:38 Neurontin PO 300 mg TID JESSICA Administration Lactated Ringer's 1,000 mls @ 100 m ls/hr 10/01/19 15:45 10/03/19 08:27 Lactated Ringers IV Not Given .Q10H JESSICA Levofloxacin 750 mg 10/03/19 09:00 10/03/19 10:08 Levaquin PO 750 mg DAILY@0600 JESSICA Administration Protocol Lisinopril 20 mg 09/30/19 09:00 10/03/19 10:08 Prinivil PO 20 mg DAILY JESSICA Administration Multivitamins Ther apeutic 1 tab 09/30/19 09:00 10/03/19 10:08 Multivitamin Tab PO 1 tab DAILY JESSICA Administration Nicotine 1 patch 10/03/19 09:00 10/03/19 10:05 Nicoderm 21 Mg P atch TRANSDERMA 1 patch DAILY JESSICA Administration Pantoprazole Sodiu m 40 mg 09/30/19 09:00 10/03/19 10:08 Protonix PO 40 mg DAILY JESSICA Administration Thiamine Mononitra te 100 mg 09/30/19 09:00 10/03/19 10:07 Vitamin B-1 PO 100 mg DAILY JESSICA Administration [facility] PFSH: Medical History Alcohol abuse Altered mental status COPD (chronic obstructive pulmonary disease) Hypertension Polysubstance abuse Surgical History History of ankle surgery Social History Smoking and tobacco status: current every day smoker Alcohol intake: current Substance/Drug Use: current Other Psychiatric History: Other Psychiatric History: The patient has a treatment relationship with both [facility]. His psychiatrist is Dr. Garcia [facility] NPU PFSH: Medical History Alcohol abuse Altered mental status COPD (chronic obstructive pulmonary disease) Hypertension Polysubstance abuse Surgical History History of ankle surgery Social History Smoking and tobacco status: current every day smoker Alcohol intake: current Current gender identity: Male Mental Status Exam MSE Comments: This is an obese, white male, with adequate dress, grooming, and eye contact. No abnormal movements except for some psychomotor retardation. Cooperative with exam in no acute distress. Speech was slightly decreased rate and volume. Mood described as fine; affect subdued. Thought process, organized. Thought content: patient denied any suicidal or homicidal ideation, there were no delusions reported or noted, patient denied any auditory or visual hallucinations. Attention, concentration, and memory appear intact but were not formally tested. He is alert and oriented times three. Insight and judgment are fair. Vitals/I&O/Wt Last Vital Signs Temp 98.4 F 11/22/19 07:35 Pulse 107 H 11/22/19 07:35 Resp 16 11/22/19 10:19 BP 108/66 11/22/19 07:35 Pulse Ox 98 11/22/19 10:19 A&P Assessment and plan (1) Depression: This is a 54 year old, white male, with a history of chronic pain as well as some depression and mood dysregulation who is currently reporting stability on his current medication and just struggling with the pain issues at this time. Continue current medication. Agree that it is safe to discharge. Advised him to follow-up with his outpatient providers. If issues arise, he will return to the emergency room if necessary. Status: Acute Qualifiers: Depression Type: unspecified Qualified Code(s): F32.9 - Major depressive disorder, single episode, unspecified (2) Suicidal ideation: Status: Acute (3) Polysubstance abuse: Status: Acute (4) Alcohol abuse: Status: Acute Attestations NPU Medical Necessity Statement*: NA: Defer to primary provider for inpatient necessity, however no need for continued inpatient psychiatric treatment noted at this time. Coding Level of Care Code Acute Child Welfare Manager for [facility] Diagnoses Depression F32.9 Depression Type: unspecified Suicidal ideation R45.851 Polysubstance abuse F19.10 Alcohol abuse F10.10
== END 2019-11-22 10:40 | disposition home or self-care (01) ==
PROVIDERS: Emergency Provider Emergency Medicine; PCP Nurse Practitioner Family
DX: R45.851 Suicidal ideations (principal); J44.9 Chronic obstructive pulmonary disease, unspecified; I10 Essential (primary) hypertension; F10.10 Alcohol abuse, uncomplicated; Y90.6 Blood alcohol level of 120-199 mg/100 ml; F17.210 Nicotine dependence, cigarettes, uncomplicated; Z79.899 Other long term (current) drug therapy
CPT/HCPCS: 12345; 71045; 80053; 80307; 85025; 96372; 99284; J1885

== ENCOUNTER 2019-11-26 01:29 | Observation (INO) | payer MEDICARE, MEDICAID, SELFPAY ==
[2019-11-26] VITALS (11 sets, daily range): BP systolic 109–153; BP diastolic 74–88; PULSE 68–96; RESP 14–20; TEMP 37; O2SAT 91–98; BMI 29.8
--- NOTE | 2019-11-26 01:32 | XR_ITS ---
WS: [id number] XR chest 1V portable [id number] REASON FOR EXAM: cough FINDINGS: Increased peribronchial markings are noted bilaterally. The heart and mediastinal interfaces were normal. No definite pneumonia, pleural effusion, pulmonary edema, are pneumothorax. The hilum and apices are normal. No osseous abnormalities. XR/XR chest 1V portable [id number] IMPRESSION: Increased markings bilaterally suggesting bronchitis.
--- NOTE | 2019-11-26 01:33 | ECG_ITS ---
Measurements Intervals [place] Rate: 94 P: 62 VT: 165 QRS: -48 QRSD: 113 T: 72 QT: 366 QTc: 459 SINUS RHYTHM LEFT ANTERIOR FASCICULAR BLOCK [QRS AXIS <= -45, QR IN I, RS IN II] Compared to ECG 10/27/2019 02:29:53 Incomplete right bundle-branch block no longer present Electronically Signed On 11-26-2019 17:10:40 CDT by Caridad Chavez M.D. [email or web address]
[2019-11-26] MEDS: ipratropium-albuterol 3 mL Neb 9 ML INHALATION (01:51)
[2019-11-26 01:59] LABS: ABG PCO2 40.5 mmHg (35-45); ABG PH Result 7.41 (7.35-7.45); Arterial Blood Gas Hematocrit 39.7 % (42-52); Base Excess ABG 1.2 mmol/L (-2.0-2.0); Blood Gas Allen Test Pos; Blood Gas Sample Site Radial, right; Blood Gas Sample Type Arterial; HCO3 ABG 25.9 mmol/L (22-26); Oxygen Device NC; PO2 ABG 99.4 mmHg (80.0-100.0)
--- NOTE | 2019-11-26 02:32 | ED_ITS ---
HPI - Psych General: Chief Complaint: Psychiatric Symptoms Stated Complaint: PNEUMONIA Time Seen by Provider: 11/26/19 01:30 History of Present Illness: HPI Narrative: Sam Marroquin is a 54-year-old male who comes in with the complaint of cough. He states that he is concerned he has pneumonia returning. He is completed outpatient treatment for MRSA pneumonia and thought it could be recurring. He also complains of very very anxious. He is asking something more so for anxiety than for his cough. Patient denies chest pain, weakness, fever or any other complaints. EMS states when they picked the patient up his vital signs are stable with a 98% pulse ox. They placed 2 L on him for symptomatic care which resolved all his complaints of cough. Review of Systems General: Reports: other (negative unless marked) Const: Denies: fever, chills, body aches, fatigue, malaise or diaphoresis Eyes: Denies: change in vision or blurry vision ENMT: Denies: throat pain, painful swallowing, hoarseness, ear pain, ear discharge, Change in hearing or nasal discharge Card: Denies: chest pain, palpitations, irregular heart rhythm, syncope, pre- syncope, shortness of breath on exertion or shortness of breath when lying down Resp: Reports: non-productive cough; Denies: shortness of breath, productive cough, wheezing, coughing up blood or chest congestion GI: Denies: abdominal pain, nausea, vomiting, vomiting blood, coffee grounds in vomit, diarrhea, constipation, cramping, blood in stool or black tarry stool : Denies: flank pain, difficulty urinating, painful urination, urinary frequency, urinary urgency, decreased urine ouput, urinary incontinence or blood in urine Musc: Denies: neck pain, back pain, extremity pain, extremity swelling, joint pain, joint swelling, joint warmth or joint stiffness Skin/Breast: Denies: rash, skin tenderness or yellow skin Neuro: Denies: headache, numbness in extremities, weakness in extremities, changes in sensation, lack of coordination, difficulty walking, dizziness, vertigo or confusion Endo: Denies: excessive thirst, tired all the time, cold intolerance, excessive sweating, flushing or hot flashes Anirudh/Lymph: Denies: easy bruising, easy bleeding, petechiae or enlarged lymph nodes All/Imm: Denies: hives, throat swelling, tongue swelling, facial swelling or acute wheezing PFSH ED PFSH: Medical History Alcohol abuse Altered mental status COPD (chronic obstructive pulmonary disease) Hypertension Polysubstance abuse Surgical History History of ankle surgery Social History Smoking and tobacco status: current every day smoker Alcohol intake: current Current gender identity: Male Physical Exam Const: COMMON NORMALS: no apparent distress, oriented x3, no limitations, healthy appearing and well nourished EXAM LIMITATIONS: no altered mental status GENERAL APPEARANCE: cooperative, well kempt and well developed ORIENTATION/CONSCIOUSNESS: Yes awake HENMT: COMMON NORMALS: normocephalic, head/scalp atraumatic, hearing grossly normal bilaterally, external ears normal, EAC's normal, external nose normal and moist oral mucous membranes HEAD & SCALP: normal to inspection, normocephalic and atraumatic FACE & SINUS: normal facial exam and face symmetric NOSE: external nose normal and nares normal EXTERNAL EAR: Yes external ears normal EXTERNAL AUDITORY CANAL: EAC's normal MOUTH: oral and palatal mucosa normal and tongue normal Eye: COMMON NORMALS: PERRL, EOMs intact bilaterally, conjunctivae normal and no scleral icterus GENERAL EYE: normal appearance of both eyes and normal light reflex CONJUNCTIVA: Yes conjunctivae normal SCLERA: sclerae normal CORNEA: Yes corneas normal PUPIL: Yes PERRL DIRECT OPHTHALMOSCOPY: Yes normal light reflex Neck/C-Spine: COMMON NORMALS: full ROM, no lymphadenopathy, supple, no meningeal signs and no JVD GENERAL: Yes normal visual inspection and Yes trachea midline CERVICAL SPINE: Yes cervical ROM normal Chest: COMMONS NORMALS: inspection of chest normal and palpation of chest normal Resp: COMMON NORMALS: normal respiratory effort, no retractions and no use of accessory muscles EFFORT & INSPECTION: Yes able to speak in complete sentences AUSCULTATION: wheezes Cardio: COMMON NORMALS: no JVD, regular rate, regular rhythm, S1 normal heart sound, S2 normal heart sound, no gallops, no clicks, no murmurs and no rub JUGULAR VENOUS DISTENTION: no JVD RATE: regular rate RHYTHM: regular rhythm HEART SOUNDS: S1 normal and S2 normal GI: COMMON NORMALS: soft to palpation, non-tender, no hepatosplenomegaly and no masses INSPECTION: Yes normal to inspection PALPATION: Yes soft and Yes no hepatosplenomegaly : COMMON NORMALS: Yes no CVA tenderness BLADDER/KIDNEY EXAM: Yes no CVA tenderness Back/Pelvis: COMMON NORMALS: no CVA tenderness, thoracic and lumbar spine normal to inspection, no thoracic nor lumbar tenderness and thoraco-lumbar ROM normal Extremity: COMMON NORMALS: normal to inspection, full ROM, normal capillary refill, no joint enlargement, no clubbing, cyanosis or edema and no calf tenderness Neuro: COMMON NORMALS: oriented x3, CN's II-XII intact bilaterally, moves all extremities, no focal motor deficits and no sensory deficits noted MENINGEAL SIGNS: Yes no meningeal signs Psych: COMMON NORMALS: mental status grossly normal, thought process normal, cooperative, affect normal, speech normal and activity/motor behavior normal APPEARANCE: Yes well kempt SPEECH: Yes normal speech THOUGHT PROCESS: normal thought process Skin: COMMON NORMALS: no rashes or lesions noted, skin turgor normal, no jaundice, no petechiae and no mottling GENERAL SKIN EXAM: no rashes or lesions noted and turgor normal MDM - Psych MDM Narrative: Medical decision making narrative: The case was reviewed with Dr. Cornelius, he is aware the patient is made suicidal statements. He agrees to admission to the [facility]. Lab Data: Attestation: I reviewed the patient's lab results. Labs: Lab Results 11/26/19 11/26/19 11/26/19 Range/Units 01:50 02:25 02:25 WBC 6.8 (4.0-10.0) 10^3/ uL RBC 4.27 (4.1-5.3) 10^6/u L Hgb 13.4 (11.7-16.6) g/dL Hct 42.1 (42.0-52.0) % MCV 98.6 H (80-94) fL MCH 31.4 (28.0-34.0) pg MCHC 31.8 (30.0-36.0) g/dL RDW 14.0 (12.1-15.1) % Plt Count 227 (130-400) 10^3/c mm MPV 10.9 H (7.4-10.4) fL Neut % (Auto) 41.1 % Lymph % (Auto) 47.4 % Saunders % (Auto) 6.1 % Eos % (Auto) 4.1 % Baso % (Auto) 0.9 % Neut # (Auto) 2.8 (1.8-7.7) 10^3/u L Lymph # (Auto) 3.2 (0.8-4.8) 10^3/u L Saunders # (Auto) 0.4 (0.2-0.9) 10^3/u L Eos # (Auto) 0.3 (0.0-0.8) 10^3/u L Baso # (Auto) 0.1 (0.0-0.1) 10^3/u L Nucleated RBC % (a uto) 0 % Nucleated RBCs # 0.0 /100WBC PT 12.00 (10.5-13.3) SECO NDS INR 0.86 (0.8-1.2) Specimen Type Arterial Sample Site Radial, right ABG pH 7.41 (7.35-7.45) ABG pCO2 40.5 (35-45) mmHg ABG pO2 99.4 (80.0-100.0) mmH g ABG HCO3 25.9 (22-26) mmol/L ABG Base Excess 1.2 (-2.0-2.0) mmol/ L Jacques Test Pos Hematocrit 39.7 L (42-52) % O2 Delivery Device Nc O2 Liters/Min 2.0 % Roofing Machine Tender ID ellpe Sodium (136-145) mmol/L Potassium (3.5-5.1) mmol/L Chloride (98-107) mmol/L Carbon Dioxide (22-29) mmol/L Anion Gap (5-19) BUN (6-20) mg/dL Creatinine (0.7-1.2) mg/dL GFR Calculation (90-130) mL/min Glucose (65-115) mg/dL Calculated Osmolal ity (285-295) mOsm/k g Lactic Acid (0.5-2.2) mmol/L Calcium (8.5-10.5) mg/dL Magnesium (1.7-2.3) mg/dL Total Bilirubin (0.15-1.2) mg/dL AST (0-40) U/L ALT (0-41) U/L Alkaline Phosphata se (40-130) IU/L Troponin T Baselin e (0-15) ng/mL NT-Pro-B Natriuret Pep (0-125) pg/mL Total Protein (6.6-8.7) g/dL Albumin (3.5-5.2) g/dL Globulin (1.3-4.6) g/dL Urine Color (Yellow) Urine Appearance (CLEAR) Urine pH (5-7) Ur Specific Gravit y (1.005-1.030) Urine Protein (Negative) Urine Glucose (UA) (Normal) Urine Ketones (Negative) Urine Blood (Negative) Urine Nitrate (Negative) Urine Bilirubin (NEGATIVE) Urine Urobilinogen (Negative) mg/dL Ur Leukocyte Bonnie ase (Negative) Urine RBC (0-2) /hpf Urine WBC (0-5) /hpf Ur Squamous Epith Cells (0-5) Urine Bacteria (NONE) Salicylates (3-10) mg/dL Urine Opiates Scre en (Negative) ng/mL Acetaminophen (10-30) ug/mL Ur Barbiturates Sc reen (Negative) ng/mL Phenytoin (10-20) ug/mL Valproic Acid (50-100) mcg/mL Carbamazepine (4.0-12.0) ug/mL Ur Phencyclidine S crn (Negative) ng/mL Ur Amphetamines Sc reen (Negative) ng/mL U Benzodiazepines Scrn (Negative) ng/mL Paul (0.6-1.2) mmol/L Urine Cocaine Scre en (Negative) ng/mL U Marijuana (THC) Screen (Negative) ng/mL Ethyl Alcohol (0-10) mg/dL Influenza Type A A g (Negative) Influenza Type B A g (Negative) 11/26/19 11/26/19 11/26/19 Range/Units 02:25 02:25 02:25 WBC (4.0-10.0) 10^3/ uL RBC (4.1-5.3) 10^6/u L Hgb (11.7-16.6) g/dL Hct (42.0-52.0) % MCV (80-94) fL MCH (28.0-34.0) pg MCHC (30.0-36.0) g/dL RDW (12.1-15.1) % Plt Count (130-400) 10^3/c mm MPV (7.4-10.4) fL Neut % (Auto) % Lymph % (Auto) % Saunders % (Auto) % Eos % (Auto) % Baso % (Auto) % Neut # (Auto) (1.8-7.7) 10^3/u L Lymph # (Auto) (0.8-4.8) 10^3/u L Saunders # (Auto) (0.2-0.9) 10^3/u L Eos # (Auto) (0.0-0.8) 10^3/u L Baso # (Auto) (0.0-0.1) 10^3/u L Nucleated RBC % (a uto) % Nucleated RBCs # /100WBC PT (10.5-13.3) SECO NDS INR (0.8-1.2) Specimen Type Sample Site ABG pH (7.35-7.45) ABG pCO2 (35-45) mmHg ABG pO2 (80.0-100.0) mmH g ABG HCO3 (22-26) mmol/L ABG Base Excess (-2.0-2.0) mmol/ L Jacques Test Hematocrit (42-52) % O2 Delivery Device O2 Liters/Min % Roofing Machine Tender ID Sodium 150 H (136-145) mmol/L Potassium 4.3 (3.5-5.1) mmol/L Chloride 112 H (98-107) mmol/L Carbon Dioxide 26 (22-29) mmol/L Anion Gap 16.3 (5-19) BUN 15 (6-20) mg/dL Creatinine 0.8 (0.7-1.2) mg/dL GFR Calculation 100.0 (90-130) mL/min Glucose 105 (65-115) mg/dL Calculated Osmolal ity 307 H (285-295) mOsm/k g Lactic Acid 1.8 (0.5-2.2) mmol/L Calcium 9.1 (8.5-10.5) mg/dL Magnesium 2.2 (1.7-2.3) mg/dL Total Bilirubin 0.2 (0.15-1.2) mg/dL AST 25 (0-40) U/L ALT 15 (0-41) U/L Alkaline Phosphata se 118 (40-130) IU/L Troponin T Baselin e 6 (0-15) ng/mL NT-Pro-B Natriuret Pep 62 (0-125) pg/mL Total Protein 7.3 (6.6-8.7) g/dL Albumin 4.3 (3.5-5.2) g/dL Globulin 3.0 (1.3-4.6) g/dL Urine Color (Yellow) Urine Appearance (CLEAR) Urine pH (5-7) Ur Specific Gravit y (1.005-1.030) Urine Protein (Negative) Urine Glucose (UA) (Normal) Urine Ketones (Negative) Urine Blood (Negative) Urine Nitrate (Negative) Urine Bilirubin (NEGATIVE) Urine Urobilinogen (Negative) mg/dL Ur Leukocyte Bonnie ase (Negative) Urine RBC (0-2) /hpf Urine WBC (0-5) /hpf Ur Squamous Epith Cells (0-5) Urine Bacteria (NONE) Salicylates < 0.3 L (3-10) mg/dL Urine Opiates Scre en (Negative) ng/mL Acetaminophen < 5.0 L (10-30) ug/mL Ur Barbiturates Sc reen (Negative) ng/mL Phenytoin 0.8 L (10-20) ug/mL Valproic Acid 2.8 L (50-100) mcg/mL Carbamazepine 2.0 L (4.0-12.0) ug/mL Ur Phencyclidine S crn (Negative) ng/mL Ur Amphetamines Sc reen (Negative) ng/mL U Benzodiazepines Scrn (Negative) ng/mL Paul (0.6-1.2) mmol/L Urine Cocaine Scre en (Negative) ng/mL U Marijuana (THC) Screen (Negative) ng/mL Ethyl Alcohol 202 H (0-10) mg/dL Influenza Type A A g (Negative) Influenza Type B A g (Negative) 11/26/19 11/26/19 11/26/19 Range/Units 02:25 02:30 02:30 WBC (4.0-10.0) 10^3/ uL RBC (4.1-5.3) 10^6/u L Hgb (11.7-16.6) g/dL Hct (42.0-52.0) % MCV (80-94) fL MCH (28.0-34.0) pg MCHC (30.0-36.0) g/dL RDW (12.1-15.1) % Plt Count (130-400) 10^3/c mm MPV (7.4-10.4) fL Neut % (Auto) % Lymph % (Auto) % Saunders % (Auto) % Eos % (Auto) % Baso % (Auto) % Neut # (Auto) (1.8-7.7) 10^3/u L Lymph # (Auto) (0.8-4.8) 10^3/u L Saunders # (Auto) (0.2-0.9) 10^3/u L Eos # (Auto) (0.0-0.8) 10^3/u L Baso # (Auto) (0.0-0.1) 10^3/u L Nucleated RBC % (a uto) % Nucleated RBCs # /100WBC PT (10.5-13.3) SECO NDS INR (0.8-1.2) Specimen Type Sample Site ABG pH (7.35-7.45) ABG pCO2 (35-45) mmHg ABG pO2 (80.0-100.0) mmH g ABG HCO3 (22-26) mmol/L ABG Base Excess (-2.0-2.0) mmol/ L Jacques Test Hematocrit (42-52) % O2 Delivery Device O2 Liters/Min % Roofing Machine Tender ID Sodium (136-145) mmol/L Potassium (3.5-5.1) mmol/L Chloride (98-107) mmol/L Carbon Dioxide (22-29) mmol/L Anion Gap (5-19) BUN (6-20) mg/dL Creatinine (0.7-1.2) mg/dL GFR Calculation (90-130) mL/min Glucose (65-115) mg/dL Calculated Osmolal ity (285-295) mOsm/k g Lactic Acid (0.5-2.2) mmol/L Calcium (8.5-10.5) mg/dL Magnesium (1.7-2.3) mg/dL Total Bilirubin (0.15-1.2) mg/dL AST (0-40) U/L ALT (0-41) U/L Alkaline Phosphata se (40-130) IU/L Troponin T Baselin e (0-15) ng/mL NT-Pro-B Natriuret Pep (0-125) pg/mL Total Protein (6.6-8.7) g/dL Albumin (3.5-5.2) g/dL Globulin (1.3-4.6) g/dL Urine Color Yellow (Yellow) Urine Appearance Clear (CLEAR) Urine pH 6.5 (5-7) Ur Specific Gravit y 1.010 (1.005-1.030) Urine Protein Neg (Negative) Urine Glucose (UA) Norm (Normal) Urine Ketones Negative (Negative) Urine Blood Neg (Negative) Urine Nitrate Negative (Negative) Urine Bilirubin Neg (NEGATIVE) Urine Urobilinogen Norm (Negative) mg/dL Ur Leukocyte Bonnie ase Negative (Negative) Urine RBC Rare (0-2) /hpf Urine WBC Rare (0-5) /hpf Ur Squamous Epith Cells Rare (0-5) Urine Bacteria Trace (NONE) Salicylates (3-10) mg/dL Urine Opiates Scre en Negative (Negative) ng/mL Acetaminophen (10-30) ug/mL Ur Barbiturates Sc reen Negative (Negative) ng/mL Phenytoin (10-20) ug/mL Valproic Acid (50-100) mcg/mL Carbamazepine (4.0-12.0) ug/mL Ur Phencyclidine S crn Negative (Negative) ng/mL Ur Amphetamines Sc reen Negative (Negative) ng/mL U Benzodiazepines Scrn Positive H (Negative) ng/mL Paul 0.1 L (0.6-1.2) mmol/L Urine Cocaine Scre en Negative (Negative) ng/mL U Marijuana (THC) Screen Positive H (Negative) ng/mL Ethyl Alcohol (0-10) mg/dL Influenza Type A A g (Negative) Influenza Type B A g (Negative) 11/26/19 Range/Units 02:43 WBC (4.0-10.0) 10^3/ uL RBC (4.1-5.3) 10^6/u L Hgb (11.7-16.6) g/dL Hct (42.0-52.0) % MCV (80-94) fL MCH (28.0-34.0) pg MCHC (30.0-36.0) g/dL RDW (12.1-15.1) % Plt Count (130-400) 10^3/c mm MPV (7.4-10.4) fL Neut % (Auto) % Lymph % (Auto) % Saunders % (Auto) % Eos % (Auto) % Baso % (Auto) % Neut # (Auto) (1.8-7.7) 10^3/u L Lymph # (Auto) (0.8-4.8) 10^3/u L Saunders # (Auto) (0.2-0.9) 10^3/u L Eos # (Auto) (0.0-0.8) 10^3/u L Baso # (Auto) (0.0-0.1) 10^3/u L Nucleated RBC % (a uto) % Nucleated RBCs # /100WBC PT (10.5-13.3) SECO NDS INR (0.8-1.2) Specimen Type Sample Site ABG pH (7.35-7.45) ABG pCO2 (35-45) mmHg ABG pO2 (80.0-100.0) mmH g ABG HCO3 (22-26) mmol/L ABG Base Excess (-2.0-2.0) mmol/ L Jacques Test Hematocrit (42-52) % O2 Delivery Device O2 Liters/Min % Roofing Machine Tender ID Sodium (136-145) mmol/L Potassium (3.5-5.1) mmol/L Chloride (98-107) mmol/L Carbon Dioxide (22-29) mmol/L Anion Gap (5-19) BUN (6-20) mg/dL Creatinine (0.7-1.2) mg/dL GFR Calculation (90-130) mL/min Glucose (65-115) mg/dL Calculated Osmolal ity (285-295) mOsm/k g Lactic Acid (0.5-2.2) mmol/L Calcium (8.5-10.5) mg/dL Magnesium (1.7-2.3) mg/dL Total Bilirubin (0.15-1.2) mg/dL AST (0-40) U/L ALT (0-41) U/L Alkaline Phosphata se (40-130) IU/L Troponin T Baselin e (0-15) ng/mL NT-Pro-B Natriuret Pep (0-125) pg/mL Total Protein (6.6-8.7) g/dL Albumin (3.5-5.2) g/dL Globulin (1.3-4.6) g/dL Urine Color (Yellow) Urine Appearance (CLEAR) Urine pH (5-7) Ur Specific Gravit y (1.005-1.030) Urine Protein (Negative) Urine Glucose (UA) (Normal) Urine Ketones (Negative) Urine Blood (Negative) Urine Nitrate (Negative) Urine Bilirubin (NEGATIVE) Urine Urobilinogen (Negative) mg/dL Ur Leukocyte Bonnie ase (Negative) Urine RBC (0-2) /hpf Urine WBC (0-5) /hpf Ur Squamous Epith Cells (0-5) Urine Bacteria (NONE) Salicylates (3-10) mg/dL Urine Opiates Scre en (Negative) ng/mL Acetaminophen (10-30) ug/mL Ur Barbiturates Sc reen (Negative) ng/mL Phenytoin (10-20) ug/mL Valproic Acid (50-100) mcg/mL Carbamazepine (4.0-12.0) ug/mL Ur Phencyclidine S crn (Negative) ng/mL Ur Amphetamines Sc reen (Negative) ng/mL U Benzodiazepines Scrn (Negative) ng/mL Paul (0.6-1.2) mmol/L Urine Cocaine Scre en (Negative) ng/mL U Marijuana (THC) Screen (Negative) ng/mL Ethyl Alcohol (0-10) mg/dL Influenza Type A A g Negative (Negative) Influenza Type B A g Negative (Negative) Imaging Data^: CXR: My impression: No acute cardiopulmonary findings. EKG Data^: EKG 1: Attestation: I personally reviewed and interpreted this EKG as follows: EKG interpretation date: 11/26/19 EKG interpretation time: 02:45 Interpretation: Normal sinus rhythm at 94 beats a minute, left axis deviation, left anterior fascicular block, no acute ST or T wave changes. Discharge Plan Discharge Patient Disposition: Admitted As Inpatient Clinical Impression: Suicidal ideation Condition: Stable Prescriptions: No Action levofloxacin 750 mg tablet 500 mg PO DAILY RF: 0 fluticasone propion-salmeterol 250-50 mcg/dose blister with device 1 inh INHALATION BID RF: 0 albuterol sulfate 2.5 mg /3 mL (0.083 %) solution for nebulization 2.5 mg inhalation TID RF: 0 [place] 5-325 mg Tablet 1 tab PO Q4H PRN (Reason: Pain) RF: 0 clonazepam 0.5 mg Tablet 0.5 mg PO TID RF: 0 baclofen 20 mg Tablet 20 mg PO TID RF: 0 diclofenac sodium 75 mg tablet,delayed release (DR/EC) 75 mg PO BID PRN (Reason: Back Pain) RF: 0 omeprazole 20 mg Tablet,Delayed Release (Dr/Ec) 20 mg PO DAILY RF: 0 ondansetron HCl [Zofran] 4 mg tablet 4 mg PO QID PRN (Reason: nausea and vomiting) Qty: 14 RF: 0 gabapentin 600 mg tablet 600 mg PO TID RF: 0 lisinopril 20 mg tablet 20 mg PO DAILY RF: 0 doxepin 75 mg capsule 75 mg PO BEDTIME RF: 0 lovastatin 10 mg tablet 10 mg PO DAILY RF: 0 tramadol 50 mg tablet 50 mg PO Q6H PRN (Reason: Pain) RF: 0 quetiapine 100 mg tablet 100 mg PO DAILY RF: 0 sildenafil 100 mg tablet 100 mg PO PRN PRN (Reason: Erectile Dysfunction) RF: 0 potassium chloride 20 mEq tablet,ER particles/crystals 20 meq PO BID RF: 0 methocarbamol 750 mg tablet 750 mg PO TID RF: 0 cyproheptadine 2 mg/5 mL syrup 2 mg PO DAILY RF: 0 pantoprazole 40 mg tablet,delayed release (DR/EC) 40 mg PO DAILY RF: 0 montelukast 10 mg tablet 10 mg PO DAILY RF: 0 hydrochlorothiazide 25 mg tablet 25 mg PO DAILY RF: 0 fluticasone propionate 50 mcg/actuation spray,suspension 1 - 2 spray INTRANASAL BID PRN (Reason: UNKNOWN) RF: 0 Spiriva with HandiHaler 18 mcg capsule, w/inhalation device 1 cap INHALATION DAILY RF: 0 pregabalin 25 mg capsule 25 mg PO TID RF: 0 diclofenac sodium 1 % gel See Rx Instructions .ROUTE .COMPLEX RF: 0 nicotine 21 mg/24 hr Patch 24 Hour 1 patch transdermal DAILY Qty: 14 RF: 0 thiamine mononitrate (vit B1) [Vitamin B-1 (mononitrate)] 100 mg Tablet 100 mg PO DAILY Qty: 30 RF: 0 Referrals: Amber Sandoval, [employer] [Primary Care Provider] - Coding Level of Care Code ED Seating Captain for Chg Fwd Exam Comprehensive
[2019-11-26] MEDS: doxycycline 100 mg Tablet 200 MG PO (02:45)
[2019-11-26 02:51] LABS: Basophils # 0.1 10^3/uL (0.0-0.1); Basophils % 0.9 %; Eosinophils # 0.3 10^3/uL (0.0-0.8); Eosinophils % 4.1 %; Hematocrit 42.1 % (42.0-52.0); Hemoglobin 13.4 g/dL (11.7-16.6); Lymphocytes # 3.2 10^3/uL (0.8-4.8); Lymphocytes % 47.4 %; Mean Corpuscular HGB Conc 31.8 g/dL (30.0-36.0); Mean Corpuscular Hemoglobin 31.4 pg (28.0-34.0); Mean Corpuscular Volume 98.6 fL (80-94); Mean Platelet Volume 10.9 fL (7.4-10.4); Monocytes # 0.4 10^3/uL (0.2-0.9); Monocytes % 6.1 %; Neutrophils # 2.8 10^3/uL (1.8-7.7); Neutrophils % 41.1 %; Nucleated Red Blood Cells % 0 %; Platelet Count 227 10^3/cmm (130-400); Red Blood Count 4.27 10^6/uL (4.1-5.3); White Blood Count 6.8 10^3/uL (4.0-10.0)
[2019-11-26 03:02] LABS: INR 0.86 (0.8-1.2)
[2019-11-26 03:05] LABS: Bacteria Urine TRACE; Bilirubin Urine Neg (NEGATIVE); Blood Urine Neg (Negative); Glucose Urine UA Norm (Normal); Ketones Urine Negative (Negative); Leukocyte Esterase Urine Negative (Negative); Nitrate Urine Negative (Negative); Protein Urine Neg (Negative); RBC Urine RARE /hpf (0-2); Squamous Epithelial Cell Urine RARE (0-5); Urine Appearance Clear (CLEAR); Urine Color Yellow (Yellow); Urobilinogen Urine Norm (Negative); WBC Urine RARE /hpf (0-5); pH Urine 6.5 (5-7)
[2019-11-26 03:06] LABS: Lithium 0.1 mmol/L (0.6-1.2)
[2019-11-26 03:07] LABS: Amphetamines Screen Urine Negative (Negative); Barbiturates Screen Urine Negative (Negative); Benzodiazepines Screen Urine Positive (Negative); Cocaine Screen Urine Negative (Negative); Opiate Screen Urine Negative (Negative); PCP Screen Urine Negative (Negative); THC Screen Urine Positive (Negative)
[2019-11-26 03:13] LABS: Lactic Sepsis W/Reflex 1.8 mmol/L (0.5-2.2)
[2019-11-26 03:17] LABS: Influenza A by IFA Negative (Negative); Influenza B by IFA Negative (Negative)
[2019-11-26 03:24] LABS: Troponin(5th) Baseline 6 ng/mL (0-15)
[2019-11-26 03:32] LABS: Alanine Aminotransferase 15 U/L (0-41); Albumin Level 4.3 g/dL (3.5-5.2); Alcohol Level 202 mg/dL (0-10); Alkaline Phosphatase 118 IU/L (40-130); Anion Gap 16.3 (5-19); Blood Urea Nitrogen 15 mg/dL (6-20); Calcium 9.1 mg/dL (8.5-10.5); Carbon Dioxide 26 mmol/L (22-29); Chloride 112 mmol/L (98-107); Glucose 105 mg/dL (65-115); Magnesium 2.2 mg/dL (1.7-2.3); NT Pro B Type Natriuretic Pept 62 pg/mL (0-125); Osmolality Calculated 307 mOsm/kg (285-295); Phenytoin Dilantin 0.8 ug/mL (10-20); Potassium 4.3 mmol/L (3.5-5.1); Sodium 150 mmol/L (136-145); Total Bilirubin 0.2 mg/dL (0.15-1.2); Total Protein 7.3 g/dL (6.6-8.7); Valproic Acid Level 2.8 mcg/mL (50-100)
[2019-11-26 03:33] LABS: Acetaminophen < 5.0 ug/mL (10-30); Aspartate Amino Transferase 25 U/L (0-40); Salicylate < 0.3 mg/dL (3-10)
[2019-11-26] MEDS: sodium chloride 0.9% 1,000 ML 999 ML IV (03:50)
--- NOTE | 2019-11-26 04:14 | PC.NURSE ---
PATIENT ASLEEP WITH 1:1 SITTER MAINTAINED
[2019-11-26 05:47] LABS: Troponin 5 2HR Delta 0 ABS# (0-10)
[2019-11-26] MEDS: dextrose 5% 1,000 ML 150 ML IV (06:02)
[2019-11-26] MEDS: folic acid 1 mg Tablet PO (08:01)
[2019-11-26] MEDS: thiamine 100 mg Tablet PO (08:01)
[2019-11-26] MEDS: multivitamin therapeutic Tablet 1 TAB PO (08:01)
[2019-11-26 09:29] LABS: Troponin 5 6HR 6.64 ng/mL (0-15); Troponin 5 6HR Delta 0.64 ng/L (0-12)
--- NOTE | 2019-11-26 12:35 | PM.SDS ---
Short Stay Summary Providers Date of Admit/Discharge: 12/04/19 Attending Provider: Alan Cornelius MD Primary Care Provider: Amber Sandoval Chief Complaint: PNEUMONIA HPI History of Present Illness Sam Marroquin is a 54 year old male Sam presented to the emergency room having just been seen several days ago for a similar presentation. It was noted, in the note of the emergency room doctor, that he was admitted secondary to concerns for lethality. Sam presents today reporting that again he was struggling with his pain and was in the midst of what would seem like routine questions, ?do you smoke,? ?have you been having any cough,? and COVID questions, and within those questions he suggests that there was a question about ?do you want to kill yourself? and he said yes, but was not even realizing the question that had been asked until they later started questioning him about it. So then when he denied it, it seemed suspicious, and he endorses that is what led to his hospitalization. He presents seeming very bright and cheerful and denying any issues. He said this is purely a misunderstanding. He denies any substantive changes in his psycho-social circumstances. He reports that he has an appointment tomorrow, as he had described when last we saw him, on 11-22-19. An excerpt from the 11-21 evaluation is included, which we reviewed, with him endorsing no significant changes. MENTAL STATUS EXAMINATION: This is an obese, white male, with adequate dress, grooming, and eye contact. No abnormal movements. Cooperative with exam in no acute distress. Speech was normal rate and volume. Mood described as pretty good; affect congruent. Thought process, organized. Thought content: patient denied any suicidal or homicidal ideation, there were no delusions reported or noted, he denied any auditory or visual hallucinations. Attention, concentration, and memory appeared intact but none were formally tested. He is alert and oriented times three. Insight and judgment appear fair. Per 11/22/2019 [facility] eval: History of Present Illness Sam Marroquin is a 54 year old male who presents to the emergency room reporting that he had a problem with his pain getting out of control. His pain got so bad that he argues that he was having thoughts to hurt himself. He came to the emergency room for assistance with his pain, but the treatment team here has had difficulty with him in the past and was not planning on giving him any opiates. Ultimately, he decided he wanted to be discharged and because he had mentioned killing himself earlier, they wanted this proposal writer?s opinion on the case. The patient reports he no longer feels that way but ultimately, he is accepting the fact that on the 6th of this month he has an appointment with a pain management office and hopefully there will be definitive treatment there. He denies depression or any current psychiatric issues that might warrant further hospitalization and treatment. We reviewed some of his past documentation including his last evaluation which can be seen below for some backdrop of his interface with [facility]. Per recent [facility] eval 10/03/19: Consulting Physican/Specialty*: Aric Corbett MD Psychiatry Reason for Consult*: The patient wants to go home. He has been abusing alprazolam and Klonopin but now affirms that he has no intention to endanger himself thusly. Attending Physician: Morris Ramirez MD Primary Care Provider: Amber Sandoval COLLATERAL CLERK Psych Consult HPI History of Present Illness Patient is a 54-year-old male who has had multiple admissions in 2018 and recurring ER visits for chemical dependency, drug abuse, alcohol intoxication and suicidal ideation. Once again, he was found by his , who had left him sleeping in bed for 3 days. She could not arouse him and called milk route supervisor. He had been prescribed Xanax Klonopin doxepin gabapentin cyproheptadine quetiapine and tramadol. His acknowledged that he may have taken 60 tablets of Xanax together. He originally had hypo-saturation on room air and a Sugey Coma Scale of 12. His initial ABG showed PO2 in the 40s. He also had bilateral infiltrates suggesting pneumonia, no doubt due to 3 days of aspiration of secretions normally swallowed. He was on his way to a respiratory arrest but was medically stabilized in the ER and as an inpatient. Yesterday he was found to be much improved, after it was discovered that his had been smuggling alprazolam or some other sedating compound to him. He was put on a one-to-one and he stabilized. The nurses believe that his fluctuant level of sedation can only be explained by additional doses of some sedating compound, most likely a benzodiazepine. Review of Systems Narrative: Denies: fever, chills, body aches or change in appetite Eyes: Denies: blurry vision or eye discomfort ENMT: Denies: throat pain or dental pain Card: Denies: chest pain Resp: Denies: shortness of breath GI: Denies: vomiting : Denies: painful urination Musc: Denies: neck pain or back pain Skin/Breast: Denies: rash Neuro: Denies: headache Psych: Denies: depression Anirudh/Lymph: Denies: easy bruising All/Imm: Denies: hives Meds Current Medications: Current Medications Generic Name Dose Route Start Last Admin Trade Name Freq PRN Reason Stop Dose Admin Acetaminophen 650 mg 09/28/19 18:24 10/03/19 10:18 Tylenol PO 650 mg Q6H PRN Administration Mild/Mod Pain Or Temp >/= 101 Albuterol/Ipratrop ium 3 ml 09/28/19 19:08 10/03/19 14:12 Duoneb INHALATION 3 ml Q4H.RESPIRATORY P RN Administration SHORTNESS OF JAYDON TH Atorvastatin Calci um 20 mg 09/30/19 09:00 10/03/19 10:07 Lipitor PO 20 mg DAILY JESSICA Administration Enoxaparin Sodium 40 mg 09/28/19 19:15 10/02/19 20:54 Lovenox SUBCUT 40 mg Q24H JESSICA Administration Folic Acid 1 mg 09/30/19 09:00 10/03/19 10:09 Folic Acid PO 1 mg DAILY EJSSICA Administration Gabapentin 300 mg 09/29/19 15:00 10/03/19 15:38 Neurontin PO 300 mg TID JESSICA Administration Lactated Ringer's 1,000 mls @ 100 m ls/hr 10/01/19 15:45 10/03/19 08:27 Lactated Ringers IV Not Given .Q10H JESSICA Levofloxacin 750 mg 10/03/19 09:00 10/03/19 10:08 Levaquin PO 750 mg DAILY@0600 JESSICA Administration Protocol Lisinopril 20 mg 09/30/19 09:00 10/03/19 10:08 Prinivil PO 20 mg DAILY JESSICA Administration Multivitamins Ther apeutic 1 tab 09/30/19 09:00 10/03/19 10:08 Multivitamin Tab PO 1 tab DAILY JESSICA Administration Nicotine 1 patch 10/03/19 09:00 10/03/19 10:05 Nicoderm 21 Mg P [facility] TRANSDERMA 1 patch DAILY JESSICA Administration Pantoprazole Sodiu m 40 mg 09/30/19 09:00 10/03/19 10:08 Protonix PO 40 mg DAILY JESSICA Administration Thiamine Mononitra te 100 mg 09/30/19 09:00 10/03/19 10:07 Vitamin B-1 PO 100 mg DAILY JESSICA Administration PFSH NPU PFSH: Medical History Alcohol abuse Altered mental status COPD (chronic obstructive pulmonary disease) Hypertension Polysubstance abuse Surgical History History of ankle surgery Social History Smoking and tobacco status: current every day smoker Alcohol intake: current Substance/Drug Use: current Other Psychiatric History: Other Psychiatric History: The patient has a treatment relationship with both [facility]. His psychiatrist is Dr. Garcia ASSESSMENT: This is a 54 year old, white male, with a long history of anxiety, depression, insomnia, pain, and some ongoing addiction issues, including alcohol and marijuana, who presents in similar fashion to his last presentation with intoxication and pain issues, and not desiring continued hospitalization. PLAN: Continue current medication. There does not appear to be credible lethality or any reason for continued inpatient stay, and certainly no grounds for a 96-hour hold. Recommend ongoing outpatient psychiatric follow up and recovery treatment. Will discharge to home. Home Meds/Allergies Home Medications and Allergies Home Medications Medication Instructions Recorded Confirmed Type Spiriva with HandiHaler 1 cap INHALATION DAILY 09/28/19 11/25/19 History cyproheptadine 2 mg PO DAILY 09/28/19 11/22/19 History diclofenac sodium See Rx Instructions .ROUTE .COMPLEX 09/28/19 11/25/19 History doxepin 75 mg PO BEDTIME 09/28/19 11/22/19 History fluticasone propionate 1 - 2 spray INTRANASAL BID PRN 09/28/19 11/22/19 History gabapentin 600 mg PO TID 09/28/19 11/25/19 History hydrochlorothiazide 25 mg PO DAILY 09/28/19 11/25/19 History lisinopril 20 mg PO DAILY 09/28/19 11/25/19 History lovastatin 10 mg PO DAILY 09/28/19 11/25/19 History methocarbamol 750 mg PO TID 09/28/19 11/22/19 History montelukast 10 mg PO DAILY 09/28/19 11/25/19 History pantoprazole 40 mg PO DAILY 09/28/19 11/22/19 History potassium chloride 20 meq PO BID 09/28/19 11/25/19 History pregabalin 25 mg PO TID 09/28/19 11/25/19 History quetiapine 100 mg PO DAILY 09/28/19 11/22/19 History sildenafil 100 mg PO PRN PRN 09/28/19 11/25/19 History tramadol 50 mg PO Q6H PRN 09/28/19 11/22/19 History [place] 1 tab PO Q4H PRN 11/22/19 11/22/19 History albuterol sulfate 2.5 mg INHALATION TID 11/22/19 11/25/19 History baclofen 20 mg PO TID 11/22/19 11/25/19 History clonazepam 0.5 mg PO TID 11/22/19 11/22/19 History diclofenac sodium 75 mg PO BID PRN 11/22/19 11/25/19 History fluticasone propion-salmeterol 1 inh INHALATION BID 11/22/19 11/22/19 History levofloxacin 500 mg PO DAILY 11/22/19 11/22/19 History omeprazole 20 mg PO DAILY 11/22/19 11/25/19 History Allergies Allergy/AdvReac Type Severity Reaction Status Date / Time lurasidone [From Latuda] Allergy Unknown Verified 09/21/19 18:24 amoxicillin AdvReac Unknown ADR-Abdominal Unverified 11/25/19 16:39 Pain duloxetine [From Cymbalta] AdvReac ADR-Agitate Unverified 11/25/19 16:39 d PFSH Acute PFSH: Medical History Alcohol abuse Altered mental status COPD (chronic obstructive pulmonary disease) Hypertension Polysubstance abuse Surgical History History of ankle surgery Social History (Reviewed 05/05/20 @ 02:43 by Siomara Kitcehn Smoking and tobacco status: current every day smoker Alcohol intake: current Current gender identity: Male Vitals/I&O/Wt Last Vital Signs Temp 98.6 F 11/26/19 08:58 Pulse 89 11/26/19 08:58 Resp 20 H 11/26/19 08:58 BP 143/88 11/26/19 08:58 Pulse Ox 96 11/26/19 08:58 11/25/19 11/26/19 11/26/19 22:59 06:59 14:59 Intake Total 1007.5 / 1007.5 992.5 / 992.5 Balance 1007.5 / 1007.5 992.5 / 992.5 Weight last 48 hrs Weight 99.79 kg Hospital Course Hospital Course: Sam presented to the emergency room and was noted to have depression and anxiety, active addiction, and a reported suicidal ideation, and so he was admitted to the neuropsychiatric unit for definitive treatment for these issues. On admission, it was acknowledged that he had no active or credible lethality, and had outpatient services in place with no interest in hospitalization. During the hospitalization, he had routine laboratory studies which were within normal limits, except for a few outliers. Additionally, he had a general medical evaluation which was within normal limits, in general, and revealed no new acute processes. Discharge Summary: At the time of discharge he denied all lethality, he was absent psychosis, and his mood and anxiety issues were well managed. He endorsed a plan to avoid all drugs of abuse and to follow-up with outpatient services, as recommended. He was evaluated and deemed to be absent all credible lethality, he was not interested in hospitalization, and he was absent criteria for a 96-hour hold, and so he was allowed to discharge. SSS Data Data Completed and Pending: Completed Studies During Hospitalization Category Date Time Status XR chest 1V beltran ble [id number] Stat Exams 11/26/19 01:32 Completed Pending at discharge Category Date Time Status Blood Culture Sta t Lab 11/26/19 02:20 Results Diagnoses at Discharge Discharge Diagnosis (1) Altered mental status: Status: Acute (2) Polysubstance abuse: Status: Acute (3) Alcohol abuse: Status: Acute (4) Depression: Status: Acute Discharge Plan Discharge Patient Disposition: Home, Self-Care Condition: Stable Prescriptions: Continued levofloxacin 750 mg tablet 500 mg PO DAILY RF: 0 fluticasone propion-salmeterol 250-50 mcg/dose blister with device 1 inh INHALATION BID RF: 0 albuterol sulfate 2.5 mg /3 mL (0.083 %) solution for nebulization 2.5 mg inhalation TID RF: 0 [place] 5-325 mg Tablet 1 tab PO Q4H PRN (Reason: Pain) RF: 0 clonazepam 0.5 mg Tablet 0.5 mg PO TID RF: 0 baclofen 20 mg Tablet 20 mg PO TID RF: 0 diclofenac sodium 75 mg tablet,delayed release (DR/EC) 75 mg PO BID PRN (Reason: Back Pain) RF: 0 omeprazole 20 mg Tablet,Delayed Release (Dr/Ec) 20 mg PO DAILY RF: 0 ondansetron HCl [Zofran] 4 mg tablet 4 mg PO QID PRN (Reason: nausea and vomiting) Qty: 14 RF: 0 gabapentin 600 mg tablet 600 mg PO TID RF: 0 lisinopril 20 mg tablet 20 mg PO DAILY RF: 0 doxepin 75 mg capsule 75 mg PO BEDTIME RF: 0 lovastatin 10 mg tablet 10 mg PO DAILY RF: 0 tramadol 50 mg tablet 50 mg PO Q6H PRN (Reason: Pain) RF: 0 quetiapine 100 mg tablet 100 mg PO DAILY RF: 0 sildenafil 100 mg tablet 100 mg PO PRN PRN (Reason: Erectile Dysfunction) RF: 0 potassium chloride 20 mEq tablet,ER particles/crystals 20 meq PO BID RF: 0 methocarbamol 750 mg tablet 750 mg PO TID RF: 0 cyproheptadine 2 mg/5 mL syrup 2 mg PO DAILY RF: 0 pantoprazole 40 mg tablet,delayed release (DR/EC) 40 mg PO DAILY RF: 0 montelukast 10 mg tablet 10 mg PO DAILY RF: 0 hydrochlorothiazide 25 mg tablet 25 mg PO DAILY RF: 0 fluticasone propionate 50 mcg/actuation spray,suspension 1 - 2 spray INTRANASAL BID PRN (Reason: UNKNOWN) RF: 0 Spiriva with HandiHaler 18 mcg capsule, w/inhalation device 1 cap INHALATION DAILY RF: 0 pregabalin 25 mg capsule 25 mg PO TID RF: 0 diclofenac sodium 1 % gel See Rx Instructions .ROUTE .COMPLEX RF: 0 nicotine 21 mg/24 hr Patch 24 Hour 1 patch transdermal DAILY Qty: 14 RF: 0 thiamine mononitrate (vit B1) [Vitamin B-1 (mononitrate)] 100 mg Tablet 100 mg PO DAILY Qty: 30 RF: 0 Discharge Orders: Discharge Order (Routine); Ordered 11/26/19 Ordered By: Alan Cornelius Referrals: [facility] [Outside] (They should be following up with you to schedule an appointment since you already did your intake assessment.) Amber Sandoval COLLATERAL CLERK [Primary Care Provider] - 4-7 days Discharge Diet: Regular Discharge Activity: Resume usual activity Discharge Date/Time: 11/26/19 13:22 Attestations Medical Necessity Statement*: Inpatient hospitalization is not medically necessary or the clinically appropriate intervention at this time. We will allow the patient to discharge, per his request. Time Spent in Patient Care*: greater than 30 min Specific Discharge Activities: Specific discharge activities: educating patient, discussing with case making machine operator/social workers/dc planners, documenting/other paperwork and evaluating patient/reviewing data Quality Metrics Clinical Quality Measures: During this hospital stay, did patient experience: None Coding Level of Care Code Acute Material Handling Crew Supervisor for Chg Fwd Diagnoses Altered mental status R41.82 Polysubstance abuse F19.10 Alcohol abuse F10.10 Depression F32.9
--- NOTE | 2019-11-28 16:55 | PC.RESP ---
Smoking Cessation information and a schedule of classes sent to patient post discharge.
== END 2019-11-26 13:22 | disposition home or self-care (01) ==
LOC: ER 04:51 → NP 10:57
PROVIDERS: Admitting Provider Psychiatry & Neurology Psychiatry; Emergency Provider Emergency Medicine; PCP Nurse Practitioner Family; Visit Provider Psychiatry & Neurology Psychiatry
DX: R41.82 Altered mental status, unspecified (principal); F19.10 Other psychoactive substance abuse, uncomplicated; F10.10 Alcohol abuse, uncomplicated; F32.9 Major depressive disorder, single episode, unspecified; F17.210 Nicotine dependence, cigarettes, uncomplicated; F41.9 Anxiety disorder, unspecified; J44.9 Chronic obstructive pulmonary disease, unspecified; I10 Essential (primary) hypertension
CPT/HCPCS: 12345; 36415; 36600; 71045; 80053; 80156; 80164; 80178; 80185; 80306; 80307; 81001; 82803; 83605; 83735; 83880; 84484; 85025; 85610; 87040; 87804; 93005; 94640; 96361; 96374; 96375; 99285; G0378; J2930; J3490; J7030

== ENCOUNTER 2019-12-23 06:19 | Emergency (ER) | payer MEDICARE, MEDICAID, SELFPAY ==
[2019-12-23 06:21] VITALS: BP 125/94; PULSE 81; RESP 22; TEMP 36.6; O2SAT 96; BMI 30.9
--- NOTE | 2019-12-23 06:38 | CTR_ITS ---
PROCEDURE INFORMATION: Exam: CT Cervical Spine Without Contrast Exam date and time: 12/23/2019 6:43 AM Age: 54 years old Clinical indication: Injury or trauma; Initial encounter; Blunt trauma; Patient HX: ETOH with fall; Additional info: Fall, intoxicated, loc TECHNIQUE: Imaging protocol: Computed tomography images of the cervical spine without contrast. Radiation optimization: All CT scans at this facility use at least one of these dose optimization techniques: automated exposure control; mA and/or kV adjustment per patient size (includes targeted exams where dose is matched to clinical indication); or iterative reconstruction. COMPARISON: CT Cervical Spine wo* [id number] 01/31/2019 4:01 AM RADIATION DOSE METRICS: Total DLP: 787.13 mGy-cm FINDINGS: Vertebrae: No acute fracture. Normal alignment. There are advanced multilevel degenerative changes including disc space narrowing, uncovertebral joint arthropathy, and hypertrophic spur formation. There is moderate/severe bony spinal canal stenosis at C5/6, please correlate clinically. No posttraumatic abnormality is identified. Soft tissues: Unremarkable. Mastoid air cells: Patient has had prior left mastoid surgery. There is mild left mastoid disease. Lungs: Lung apices are normal. CT/CT cervical spin wo con* [id number] IMPRESSION: There are advanced multilevel degenerative changes including disc space narrowing, uncovertebral joint arthropathy, and hypertrophic spur formation. There is moderate/severe bony spinal canal stenosis at C5/6, please correlate clinically. No posttraumatic abnormality is identified. Radiation Dose CTDIVOL = (mGy): DLP = 787.13 (mGy-cm)
--- NOTE | 2019-12-23 06:38 | ED_ITS ---
HPI - Fall General: Chief Complaint: Fall Stated Complaint: ETOH Time Seen by Provider: 12/23/19 06:38 History of Present Illness: HPI Narrative: 54-year-old male brought in via EMS. He has a well-known history to the emergency room of heavy alcoholism. As well as chronic back pain. He comes in today complaining of a fall. He does admit to having been drinking last night he has a c-collar in place is complaining of neck and back pain primarily however neck pain. States he stood up from his couch went to the kitchen to try to get something to eat got lightheaded dizzy and fell he thinks he hit his head although he has no obvious trauma cannot recall everything that happens. He denies any pain into his neck or arms. Denies any other recent illness or injury denies any difficulty breathing denies any chest pain no abdominal pain no vomiting diarrhea hematochezia melena hematemesis or coffee-ground emesis. His old chart was reviewed he provided limited history today due to his lethargy he does smell strongly of alcohol. MD complaint: fall Onset (ago): minute(s) Fall from: standing Fall witnessed: no Place fall occurred: home Loss of consciousness: Unsure Prolonged down time: unclear Symptoms prior to fall: lightheadedness and dizziness Context: alcohol use and history of frequent falls Location of injury: neck and back (Chronic) Severity: mild Associated symptoms-after fall: Reports no associated symptoms and confusion; Denies abdominal pain or chest pain Review of Systems Const: Denies: fever(s), chills, body aches, change in appetite, fatigue or ma laise ENMT: Denies: throat pain, ear or mastoid pain, nasal discharge or nasal congestion Card: Denies: chest pain, edema, dyspnea on exertion or orthopnea Resp: Denies: dyspnea, productive cough or non-productive cough GI: Denies: abdominal pain, nausea, vomiting, hematemesis, coffee ground emesis, diarrhea, constipation, bloating, hematochezia or melena : Denies: flank pain, dysuria, urinary frequency or urinary urgency Skin/Breast: Denies: rash or pruritus Neuro: Reports: confusion PFSH ED PFSH: Medical History Alcohol abuse Altered mental status COPD (chronic obstructive pulmonary disease) Hypertension Polysubstance abuse Surgical History History of ankle surgery Social History Smoking and tobacco status: current every day smoker Alcohol intake: current Current gender identity: Male Physical Exam Const: COMMON NORMALS: no acute distress GENERAL APPEARANCE: cooperative and comfortable ORIENTATION/CONSCIOUSNESS: Yes awake, Yes oriented to person, Yes oriented to place and Yes oriented to time HENMT: COMMON NORMALS: normocephalic, atraumatic, hearing grossly normal bilaterally, external ears normal, EAC's normal, TM's normal bilaterally and Normal nasal mucous membranes and turbinates present HEAD & SCALP: normocephalic and atraumatic NOSE: Normal nasal mucous membranes and turbinates present EXTERNAL EAR: Yes external ears normal EXTERNAL AUDITORY CANAL: EAC's normal TYMPANIC MEMBRANE: TM's normal bilaterally Neck/C-Spine: COMMON NORMALS: no JVD Lymph: LYMPHATIC: no lymphadenopathy noted and no lymphedema noted Resp: COMMON NORMALS: normal respiratory effort, No retractions, No use of accessory muscles and clear to auscultation bilaterally AUSCULTATION: clear to auscultation bilaterally Cardio: COMMON NORMALS: no JVD, regular rate, regular rhythm and No murmurs present (Cardio) RATE: regular rate RHYTHM: regular rhythm GI: COMMON NORMALS: Soft to palpation and No hepatosplenomegaly present AUSCULTATION: Yes normoactive bowel sounds PALPATION: Yes Soft to palpation, No Tenderness to palpation present (GI), No Guarding due to palpation present (GI) and Yes No hepatosplenomegaly present Extremity: COMMON NORMALS: normal to inspection, capillary refill normal, no clubbing, cyanosis or edema, no calf tenderness and no pedal edema Neuro: SENSORIUM/ORIENTATION: Yes oriented to person, Yes oriented to place and Yes oriented to time Skin: COMMON NORMALS: no rashes or lesions noted GENERAL SKIN EXAM: no rashes or lesions noted Course Vital Signs: Vital signs: Vital Signs Temperature 97.9 F 12/23/19 06:21 Pulse Rate 78 12/23/19 11:54 Respiratory Rate 18 12/23/19 11:54 Blood Pressure 116/73 12/23/19 06:55 Pulse Oximetry 97 12/23/19 11:54 MDM - Fall MDM Narrative: Medical decision making narrative: CT findings with Dr. Abreu the radiologist the CT findings in the neck are chronic and have not changed per his read. Mr. Marroquin is awake and alert at this time he is actually wanting to go home c-collar was removed clinically was reexamined has no finding of pain in the neck at this time. We discussed his continued alcohol use. Encouraged him to continue to follow-up as previously planned with [facility] for abstinence counseling from alcohol. Lab Data: Labs: Lab Results 12/23/19 12/23/19 Range/Units 07:15 07:15 WBC 5.8 (4.0-10.0) 10^3/ uL RBC 4.45 (4.1-5.3) 10^6/u L Hgb 14.0 (11.7-16.6) g/dL Hct 44.3 (42.0-52.0) % MCV 99.6 H (80-94) fL MCH 31.5 (28.0-34.0) pg MCHC 31.6 (30.0-36.0) g/dL RDW 13.4 (12.1-15.1) % Plt Count 219 (130-400) 10^3/c mm MPV 10.5 H (7.4-10.4) fL Neut % (Auto) 61.5 % Lymph % (Auto) 23.5 % [place] % (Auto) 11.3 % Eos % (Auto) 2.6 % Baso % (Auto) 0.9 % Neut # (Auto) 3.6 (1.8-7.7) 10^3/u L Lymph # (Auto) 1.4 (0.8-4.8) 10^3/u L [place] # (Auto) 0.7 (0.2-0.9) 10^3/u L Eos # (Auto) 0.2 (0.0-0.8) 10^3/u L Baso # (Auto) 0.1 (0.0-0.1) 10^3/u L Nucleated RBC % (a uto) 0 % Nucleated RBCs # 0.0 /100WBC Sodium 139 (136-145) mmol/L Potassium 3.8 (3.5-5.1) mmol/L Chloride 105 (98-107) mmol/L Carbon Dioxide 21 L (22-29) mmol/L Anion Gap 16.8 (5-19) BUN 20 (6-20) mg/dL Creatinine 0.6 L (0.7-1.2) mg/dL GFR Calculation 139.4 H (90-130) mL/min Glucose 88 (65-115) mg/dL Calculated Osmolal ity 284 L (285-295) mOsm/k g Calcium 9.0 (8.5-10.5) mg/dL Total Bilirubin 0.2 (0.15-1.2) mg/dL AST 21 (0-40) U/L ALT 12 (0-41) U/L Alkaline Phosphata se 95 (40-130) IU/L Total Protein 6.9 (6.6-8.7) g/dL Albumin 4.2 (3.5-5.2) g/dL Globulin 2.7 (1.3-4.6) g/dL Ethyl Alcohol 45 H (0-10) mg/dL Discharge Plan Discharge Patient Disposition: Home, Self-Care Clinical Impression: Fall, Alcohol abuse, Chronic back pain, Spinal stenosis of cervical region Condition: Stable Prescriptions: No Action levofloxacin 750 mg tablet 500 mg PO DAILY RF: 0 fluticasone propion-salmeterol 250-50 mcg/dose blister with device 1 inh INHALATION BID RF: 0 albuterol sulfate 2.5 mg /3 mL (0.083 %) solution for nebulization 2.5 mg inhalation TID RF: 0 [place] 5-325 mg Tablet 1 tab PO Q4H PRN (Reason: Pain) RF: 0 clonazepam 0.5 mg Tablet 0.5 mg PO TID RF: 0 baclofen 20 mg Tablet 20 mg PO TID RF: 0 diclofenac sodium 75 mg tablet,delayed release (DR/EC) 75 mg PO BID PRN (Reason: Back Pain) RF: 0 omeprazole 20 mg Tablet,Delayed Release (Dr/Ec) 20 mg PO DAILY RF: 0 ondansetron HCl [Zofran] 4 mg tablet 4 mg PO QID PRN (Reason: nausea and vomiting) Qty: 14 RF: 0 gabapentin 600 mg tablet 600 mg PO TID RF: 0 lisinopril 20 mg tablet 20 mg PO DAILY RF: 0 doxepin 75 mg capsule 75 mg PO BEDTIME RF: 0 lovastatin 10 mg tablet 10 mg PO DAILY RF: 0 tramadol 50 mg tablet 50 mg PO Q6H PRN (Reason: Pain) RF: 0 quetiapine 100 mg tablet 100 mg PO DAILY RF: 0 sildenafil 100 mg tablet 100 mg PO PRN PRN (Reason: Erectile Dysfunction) RF: 0 potassium chloride 20 mEq tablet,ER particles/crystals 20 meq PO BID RF: 0 methocarbamol 750 mg tablet 750 mg PO TID RF: 0 cyproheptadine 2 mg/5 mL syrup 2 mg PO DAILY RF: 0 pantoprazole 40 mg tablet,delayed release (DR/EC) 40 mg PO DAILY RF: 0 montelukast 10 mg tablet 10 mg PO DAILY RF: 0 hydrochlorothiazide 25 mg tablet 25 mg PO DAILY RF: 0 fluticasone propionate 50 mcg/actuation spray,suspension 1 - 2 spray INTRANASAL BID PRN (Reason: UNKNOWN) RF: 0 Spiriva with HandiHaler 18 mcg capsule, w/inhalation device 1 cap INHALATION DAILY RF: 0 pregabalin 25 mg capsule 25 mg PO TID RF: 0 diclofenac sodium 1 % gel See Rx Instructions .ROUTE .COMPLEX RF: 0 nicotine 21 mg/24 hr Patch 24 Hour 1 patch transdermal DAILY Qty: 14 RF: 0 thiamine mononitrate (vit B1) [Vitamin B-1 (mononitrate)] 100 mg Tablet 100 mg PO DAILY Qty: 30 RF: 0 Referrals: Amber Sandoval FNP [Primary Care Provider] - Discharge Diet: Usual diet Discharge Activity: Resume usual activity Activity Restrictions/Additional Instructions: Avoid alcohol. Follow-up with your primary care doctor for chronic back and neck pain Interventions: ED Discharge Assessment Last Done: 12/23/19 11:54 ED Charges Last Done: 12/23/19 11:55 Discharge Date/Time: 12/23/19 11:55 Coding Level of Care Code ED Sprayer Leather for Gabriel Fwsherri Exam Comprehensive
--- NOTE | 2019-12-23 06:38 | ECG_ITS ---
Measurements Intervals [place] Rate: 79 P: 59 FL: 175 QRS: -46 QRSD: 109 T: 60 QT: 381 QTc: 437 SINUS RHYTHM LEFT ANTERIOR FASCICULAR BLOCK [QRS AXIS <= -45, QR IN I, RS IN II] Compared to ECG 11/26/2019 02:45:01 No significant changes Electronically Signed On 12-23-2019 17:03:52 CDT by Matias Kennedy M.D. [email or web address]
--- NOTE | 2019-12-23 06:38 | CTR_ITS ---
PROCEDURE INFORMATION: Exam: CT Head Without Contrast Exam date and time: 12/23/2019 6:43 AM Age: 54 years old Clinical indication: Injury or trauma; Patient HX: ETOH with fall; Additional info: Fall w loc TECHNIQUE: Imaging protocol: Computed tomography of the head without contrast. Radiation optimization: All CT scans at this facility use at least one of these dose optimization techniques: automated exposure control; mA and/or kV adjustment per patient size (includes targeted exams where dose is matched to clinical indication); or iterative reconstruction. COMPARISON: CT head wo con* [id number] 09/28/2019 5:07 PM RADIATION DOSE METRICS: Total DLP: 900.58 mGy-cm FINDINGS: Brain: Normal. No hemorrhage. Unremarkable white matter. No mass effect. Ventricles: Normal. No ventriculomegaly. Bones/joints: There is an old nasal bone fracture. Sinuses: There is mild sinus disease. Mastoid air cells: Visualized mastoid air cells are well aerated. Soft tissues: Unremarkable. CT/CT head wo con* [id number] IMPRESSION: No acute intracranial abnormality. Please see details above. Radiation Dose CTDIVOL = (mGy): DLP = 900.58 (mGy-cm)
[2019-12-23 06:55] VITALS: BP 116/73; PULSE 64; RESP 18; O2SAT 94
[2019-12-23] MEDS: lactated ringers 1,000 ML 999 ML IV (07:18)
[2019-12-23] MEDS: ondansetron 2 mg/ML SDV 2 mL 4 MG IVP ×2 (07:19→08:27)
[2019-12-23 07:32] LABS: Basophils # 0.1 10^3/uL (0.0-0.1); Basophils % 0.9 %; Eosinophils # 0.2 10^3/uL (0.0-0.8); Eosinophils % 2.6 %; Hematocrit 44.3 % (42.0-52.0); Lymphocytes # 1.4 10^3/uL (0.8-4.8); Lymphocytes % 23.5 %; Mean Corpuscular HGB Conc 31.6 g/dL (30.0-36.0); Mean Corpuscular Hemoglobin 31.5 pg (28.0-34.0); Mean Corpuscular Volume 99.6 fL (80-94); Mean Platelet Volume 10.5 fL (7.4-10.4); Monocytes # 0.7 10^3/uL (0.2-0.9); Monocytes % 11.3 %; Neutrophils # 3.6 10^3/uL (1.8-7.7); Neutrophils % 61.5 %; Nucleated Red Blood Cells % 0 %; Platelet Count 219 10^3/cmm (130-400); Red Blood Count 4.45 10^6/uL (4.1-5.3); Red Cell Distribution Width 13.4 % (12.1-15.1); White Blood Count 5.8 10^3/uL (4.0-10.0)
[2019-12-23 07:50] LABS: Alanine Aminotransferase 12 U/L (0-41); Albumin Level 4.2 g/dL (3.5-5.2); Alcohol Level 45 mg/dL (0-10); Alkaline Phosphatase 95 IU/L (40-130); Anion Gap 16.8 (5-19); Aspartate Amino Transferase 21 U/L (0-40); Blood Urea Nitrogen 20 mg/dL (6-20); Carbon Dioxide 21 mmol/L (22-29); Chloride 105 mmol/L (98-107); Globulin 2.7 g/dL (1.3-4.6); Glomerular Filtration Rate 139.4 mL/min (90-130); Glucose 88 mg/dL (65-115); Osmolality Calculated 284 mOsm/kg (285-295); Potassium 3.8 mmol/L (3.5-5.1); Sodium 139 mmol/L (136-145); Total Bilirubin 0.2 mg/dL (0.15-1.2); Total Protein 6.9 g/dL (6.6-8.7)
[2019-12-23] MEDS: ketorolac 30 mg/mL INJ IVP ×2 (08:27→10:02)
[2019-12-23] MEDS: sodium chloride 0.9% 1,000 ML 999 ML IV (08:27)
[2019-12-23 10:01] VITALS: RESP 17; O2SAT 97
[2019-12-23] MEDS: morphine 4 mg/mL SDV 1 mL 2 MG IVP (10:01)
[2019-12-23] MEDS: orphenadrine 30 mg/mL Inj 2 mL 60 MG IVP (10:02)
[2019-12-23 11:54] VITALS: PULSE 78; RESP 18; O2SAT 97
== END 2019-12-23 11:55 | disposition home or self-care (01) ==
PROVIDERS: Emergency Provider Family Medicine; PCP Nurse Practitioner Family
DX: F10.10 Alcohol abuse, uncomplicated (principal); G89.29 Other chronic pain; M54.9 Dorsalgia, unspecified; M48.02 Spinal stenosis, cervical region; J44.9 Chronic obstructive pulmonary disease, unspecified; I10 Essential (primary) hypertension; F17.210 Nicotine dependence, cigarettes, uncomplicated; Z79.899 Other long term (current) drug therapy
CPT/HCPCS: 12345; 36415; 70450; 72125; 80053; 80307; 85025; 93005; 96360; 96365; 96375; 96376; 99283; 99284; J1885; J2270; J2360; J2405; J7030

== ENCOUNTER 2023-03-03 21:16 | Emergency (ER) | payer MEDICARE, SELFPAY ==
[2023-03-03 21:26] VITALS: BMI 31.8
[2023-03-03 21:28] VITALS: BP 159/88; PULSE 74; RESP 17; TEMP 37.1; O2SAT 97
--- NOTE | 2023-03-03 21:38 | W.ED.EXTPRO ---
HPI - Extremity Problem General: Chief complaint: Extremity Problem,Nontraumatic Stated complaint: right hip pain Time Seen by Provider: 03/03/23 21:22 History of Present Illness: 57-year-old male patient comes in with low back and right hip pain. Patient reports he has a arthritic right knee that he is awaiting surgery. Reports over the last 2 to 3 days he has had increasing pain to his left hip due to his difficulty with walking. Patient appears nontoxic. Patient does have a history of alcohol abuse, chronic back pain, hypertension, and COPD. Patient reports taking no chronic pain medication at this time but does use gabapentin and muscle relaxers routinely. Review of Systems General: Reports: 10 or more systems reviewed and unremarkable except in HPI and below Musc: Reports: back pain and joint pain (Right hip) [facility] ED PFSH: Medical History (Updated 03/03/23 @ 22:06 by KALPANA Dunne) Alcohol abuse Altered mental status COPD (chronic obstructive pulmonary disease) Hypertension Polysubstance abuse Surgical History History of ankle surgery Social History Smoking and tobacco status: current every day smoker Alcohol intake: current Substance/Drug Use: current Current gender identity: Male Physical Exam Const: COMMON NORMALS: alert HENMT: COMMON NORMALS: normocephalic HEAD & SCALP: normocephalic Neck/C-Spine: COMMON NORMALS: full ROM Resp: COMMON NORMALS: normal respiratory effort Cardio: COMMON NORMALS: regular rate RATE: regular rate Back/Pelvis: LUMBAR SPINE/LOWER BACK: Yes lumbar spinal tenderness Lumbar spinal tenderness location: L5 and Yes paraspinal muscle tenderness Extremity: RIGHT LOWER EXTREMITY: Yes hip joint (Lateral tenderness) Neuro: SUGEY COMA SCALE: document GCS findings [place] coma scale eye opening: Spontaneous [place] coma scale verbal response: Orientated [place] coma scale motor response: Obey commands [place] coma scale total score: 15 SENSORIUM/ORIENTATION: Yes alert Skin: COMMON NORMALS: turgor normal GENERAL SKIN EXAM: turgor normal Course Vital Signs: Vital signs: Vital Signs Temperature 98.8 F 03/03/23 21:28 Pulse Rate 71 03/03/23 22:14 Respiratory Rate 16 08/11/23 22:14 Blood Pressure 158/115 08/11/23 22:14 Pulse Oximetry 98 03/03/23 22:14 Oxygen Delivery Me thod Room Air 03/03/23 21:28 MDM - Extremity (Nontraumatic) Medical Decision Making 57-year-old male patient comes in today for complaints of right hip pain. On exam patient has tenderness in the lateral right hip, and in the muscular of the lumbar spine vital signs are normal. Differential diagnosis includes lumbar strain, intervertebral disc disease, bursitis of the hip, tendinitis of the hip, avascular necrosis. X-ray of the hip was unremarkable except for some mild degenerative changes. Pain most likely is due to favoring of the right knee due to severe arthritis and his chronic back problems. Recommend activity as tolerated. Patient was written for some celecoxib for pain and inflammation. Patient was also given a few hydrocodone for severe pain. Patient reported understanding of care plan and need for follow-up with primary care for further instructions and prescriptions. Discharge Plan Discharge Patient Disposition: Home Clinical Impression: Arthralgia of right hip Condition: Stable Prescriptions: New celecoxib 200 mg capsule 200 mg PO BID Qty: 20 0RF hydrocodone-acetaminophen 5-325 mg tablet 1 tab PO Q8H PRN (Reason: pain (scale score 7-10)) Qty: 7 0RF No Action levofloxacin 750 mg tablet 500 mg PO DAILY Rx Instructions: pt unable to verify [facility] filled on 11/19/2019 fluticasone propion-salmeterol 250-50 mcg/dose blister with device 1 inh INHALATION BID Rx Instructions: pt unable to verify [facility] filled on 10/28/2019 albuterol sulfate 2.5 mg /3 mL (0.083 %) solution for nebulization 2.5 mg inhalation TID Rx Instructions: pt unable to verify [facility] filled on 11/20/2019 [place] 5-325 mg Tablet 1 tab PO Q4H PRN (Reason: Pain) Rx Instructions: pt unable to verify [facility] filled on 11/02/2019 for a 2d/s clonazepam 0.5 mg Tablet 0.5 mg PO TID Rx Instructions: pt unable to verify [facility] filled on 10/30/2019 baclofen 20 mg Tablet 20 mg PO TID Rx Instructions: pt unable to verify [facility] filled on 11/08/2019 diclofenac sodium 75 mg tablet,delayed release (DR/EC) 75 mg PO BID PRN (Reason: Back Pain) Rx Instructions: pt unable to verify [facility] filled on 10/30/2019 omeprazole 20 mg Tablet,Delayed Release (Dr/Ec) 20 mg PO DAILY Rx Instructions: pt unable to verify [facility] filled on 11/19/2019 ondansetron HCl [Zofran] 4 mg tablet 4 mg PO QID PRN (Reason: nausea and vomiting) Qty: 14 0RF Rx Instructions: pt unable to verify [facility] filled on 09/23/2019 gabapentin 600 mg tablet 600 mg PO TID Rx Instructions: pt unable to verify [facility] filled on 11/21/2019 another rx filled on 10/26/2019 for 300mg tid lisinopril 20 mg tablet 20 mg PO DAILY Rx Instructions: pt unable to verify [facility] filled on 10/23/2019 doxepin 75 mg capsule 75 mg PO BEDTIME Rx Instructions: pt unable to verify [facility] filled on 11/20/2019 lovastatin 10 mg tablet 10 mg PO DAILY Rx Instructions: pt unable to verify [facility] filled on 11/21/2019 tramadol 50 mg tablet 50 mg PO Q6H PRN (Reason: Pain) Rx Instructions: pt unable to verify [facility] filled on 10/30/2019 quetiapine 100 mg tablet 100 mg PO DAILY Rx Instructions: pt unable to verify [facility] filled on 09/23/2019 sildenafil 100 mg tablet 100 mg PO PRN PRN (Reason: Erectile Dysfunction) Rx Instructions: pt unable to verify [facility] filled on 09/26/2019 potassium chloride 20 mEq tablet,ER particles/crystals 20 meq PO BID Rx Instructions: pt unable to verify [facility] filled on 11/21/2019 methocarbamol 750 mg tablet 750 mg PO TID Rx Instructions: pt unable to verify [facility] filled on 10/28/2019 cyproheptadine 2 mg/5 mL syrup 2 mg PO DAILY Rx Instructions: pt unable to verify [facility] filled on 09/26/2019 pantoprazole 40 mg tablet,delayed release (DR/EC) 40 mg PO DAILY Rx Instructions: pt unable to verify [facility] filled on 11/21/2019 montelukast 10 mg tablet 10 mg PO DAILY Rx Instructions: pt unable to verify [facility] filled on 11/20/2019 hydrochlorothiazide 25 mg tablet 25 mg PO DAILY Rx Instructions: pt unable to verify [facility] filled on 10/23/2019 fluticasone propionate 50 mcg/actuation spray,suspension 1 - 2 spray INTRANASAL BID PRN (Reason: UNKNOWN) Rx Instructions: pt unable to verify [facility] filled on 11/20/2019 Spiriva with HandiHaler 18 mcg capsule, w/inhalation device 1 cap INHALATION DAILY Rx Instructions: pt unable to verify [facility] filled on 11/21/2019 pregabalin 25 mg capsule 25 mg PO TID Rx Instructions: pt unable to verify [facility] filled on 10/26/2019 diclofenac sodium 1 % gel See Rx Instructions .ROUTE .COMPLEX Rx Instructions: aaa 2 grams topically qid pt unable to verify [facility] filled on 11/21/2019 nicotine 21 mg/24 hr Patch 24 Hour 1 patch transdermal DAILY Qty: 14 0RF Rx Instructions: this medication was from a previous medication list thiamine mononitrate (vit B1) [Vitamin B-1 (mononitrate)] 100 mg Tablet 100 mg PO DAILY Qty: 30 0RF Rx Instructions: this medication was on a previous medication list Discharge Orders: Discharge ED (Routine); Ordered 03/03/23 Ordered By: Ayad David Discharge Diet: Usual diet Discharge Activity: Increase activity as tolerated Patient Instructions: Hip Pain (ED), Opioid Safety, Pain Management Activity Restrictions/Additional Instructions: Use acetaminophen to help control pain. Take celecoxib 200 mg twice a day for pain and inflammation. Use this routinely. Do not use naproxen, ibuprofen, or other NSAIDs while using celecoxib. Use hydrocodone for severe pain. Drink plenty of water with medications. Follow-up with primary care for further instructions and evaluation. Return to ER for new concerns. Coding Level of Care Code ED Parts Analyst for Gabriel Mortensen
--- NOTE | 2023-03-03 21:42 | XRR_ITS ---
PROCEDURE INFORMATION: Exam: XR Right Hip Exam date and time: 03/03/2023 9:46 PM Age: 57 years old Clinical indication: Hip pain; Right hip TECHNIQUE: Imaging protocol: Radiologic exam of the right hip. Views: 1 view hip with pelvis when performed. COMPARISON: CT kidney stone [id number] 04/23/2019 10:13 PM FINDINGS: Bones/joints: Femoral head neck osteophyte spurring. Acetabular osteophyte spurring. Moderately narrowed joint space. Negative for fracture. Normal joint alignment. Negative for osteonecrosis. Lumbar spine fusion hardware partially included. Soft tissues: Unremarkable. XR/XR hip RT 2-3V wo/w pel* [id number] IMPRESSION: Negative for acute right hip pathology.
[2023-03-03] MEDS: ketorolac 30 mg/mL INJ IM (22:10)
[2023-03-03] MEDS: HYDROcodone-acetaminophen 7.5-325 mg Tablet 1 TAB PO (22:10)
[2023-03-03 22:14] VITALS: BP 158/115; PULSE 71; RESP 16; O2SAT 98
== END 2023-03-03 22:20 | disposition home or self-care (01) ==
PROVIDERS: Emergency Provider Nurse Practitioner Family
DX: M25.551 Pain in right hip (principal); J44.9 Chronic obstructive pulmonary disease, unspecified; I10 Essential (primary) hypertension; F17.210 Nicotine dependence, cigarettes, uncomplicated
CPT/HCPCS: 73502; 96372; 99284; J1885

== ENCOUNTER 2023-03-08 15:55 | Inpatient (IN) | payer MEDICARE, SELFPAY ==
[2023-03-08 15:57] VITALS: BMI 33.9
[2023-03-08 16:06] VITALS: BP 86/44; PULSE 88; RESP 16; TEMP 37.2; O2SAT 94
--- NOTE | 2023-03-08 16:17 | ED.C_ITS ---
Documented by User: ZAINAB Naidu 03/08/23 17:03 HPI - Psych General: Chief Complaint: Psychiatric Symptoms Stated Complaint: SI Time Seen by Provider: 03/08/23 16:16 Source: patient Mode of arrival: ambulatory Limitations: no limitations History of Present Illness: Patient is a 57-year-old male with past medical history of polysubstance abuse and depression who presents to the emergency department complaining of suicidal ideation onset today. Patient says he was recently seen in the emergency department for pain, and that his medications ran out and he has been in constant pain since. He also says that he hit rock bottom lately as he was kicked out of his motel and is homeless, and says that he has not eaten in 6 hours. His current plan for suicide is to take his brother's gun and blow his brains out. He states he is still feeling suicidal at this time and also endorses auditory hallucinations, stating that he can hear his mother's voice speaking to him. He denies any homicidal ideations. He says he has been on psychiatric medication in the past, but has not taken such meds in 3 years. Patient is checking in along with his who is also suicidal. They are both requesting admission to [facility]. complaint: suicidal ideation and feels depressed Onset (ago): hour(s) Duration: constant History of same: Yes Context: significant life stressor Associated psychiatric symptoms: depression, suicidal ideation and auditory hallucinations Associated symptoms: Reports auditory hallucinations, depression and suicidal ideation; Deny visual hallucinations or homicidal ideation If self harm: admits thoughts of self harm and has plan Review of Systems Const: Denies: fever(s) or chills Card: Denies: chest pain, palpitations, lightheadedness or syncope Resp: Denies: dyspnea GI: Denies: abdominal pain, nausea, vomiting or diarrhea Skin/Breast: Denies: rash Neuro: Denies: headache(s) Psych: Reports: depression, hopelessness, auditory hallucinations and suicidal ideation; Denies: visual hallucinations or homicidal ideation [facility] ED PFSH: Medical History (Updated 03/09/23 @ 12:45 by Alan Cornelius MD) Alcohol abuse Altered mental status COPD (chronic obstructive pulmonary disease) Hypertension Polysubstance abuse Surgical History History of ankle surgery Social History Smoking and tobacco status: current every day smoker Alcohol intake: current Substance/Drug Use: current Current gender identity: Male Physical Exam Const: COMMON NORMALS: no acute distress, patient oriented x3, alert and well nourished GENERAL APPEARANCE: cooperative and well kempt NUTRITIONAL APPEARANCE: overweight ORIENTATION/CONSCIOUSNESS: Yes awake, Yes oriented to person, Yes oriented to place and Yes oriented to time OTHER: BP during exam 100s/60s Resp: COMMON NORMALS: normal respiratory effort and clear to auscultation bilaterally AUSCULTATION: clear to auscultation bilaterally Cardio: COMMON NORMALS: regular rate and regular rhythm RATE: regular rate RHYTHM: regular rhythm Neuro: SUGEY COMA SCALE: document GCS findings Sugey coma scale eye opening: Spontaneous [place] coma scale verbal response: Orientated [place] coma scale motor response: Obey commands Sugey coma scale total score: 15 COMMON NORMALS: patient oriented x3, moves all extremities, no focal motor deficits and no sensory deficits noted SENSORIUM/ORIENTATION: Yes alert, Yes oriented to person, Yes oriented to place and Yes oriented to time Psych: COMMON NORMALS: mental status grossly normal, Normal thought process present, cooperative, normal affect, speech normal, activity/motor behavior normal and denies homicidal ideation APPEARANCE: Yes grossly normal and Yes well kempt ATTITUDE: Yes calm ACTIVITY/MOTOR BEHAVIOR: Yes appropriate eye contact and No psychomotor agitation SPEECH: Yes normal speech MOOD & AFFECT: Yes euthymic mood THOUGHT PROCESS: Normal thought process present THOUGHT CONTENT: Yes Suicidality present ATTENTION/CONCENTRATION: Yes attention grossly intact and Yes concentration grossly intact MEMORY/COGNITION: Yes memory grossly intact and Yes cognition grossly intact INSIGHT: Good insight present (Psych) JUDGEMENT: Good judgement present (Psych) Skin: COMMON NORMALS: no rashes or lesions noted GENERAL SKIN EXAM: no rashes or lesions noted Course ED course: Patient is checking along with his both of which are suicidal starting today stating they are now homeless. NPU does not take / combos. They state they have a male bed available so patient will be admitted to NPU and will be transferred. Care transferred to KALPANA Chni at shift change. ES Consultations: Consultation #1: Dr. Cornelius-accepts admit to NPU Vital Signs: Vital signs: Vital Signs Temperature 98.1 F 03/10/23 06:00 Pulse Rate 83 03/10/23 06:00 Respiratory Rate 17 03/10/23 06:00 Blood Pressure 128/80 03/10/23 06:00 Pulse Oximetry 95 03/10/23 06:00 Oxygen Delivery Me thod Room Air 03/10/23 06:00 MDM - Psych Medical Decision Making Patient will be admitted to NPU to Dr. Cornelius for treatment of depression and suicidal ideations pending lab clearance. He is currently receiving fluids at this time for the mild elevations to his BUNs/Cr and hypotension. Lab Data 03/08/23 16:25 03/08/23 16:25 Laboratory Results WBC 7.6 10^3/uL (4.0-10.0) 03/08/23 16: RBC 4.43 10^6/uL (4.1-5.3) 03/08/23 16:25 Hgb 13.7 g/dL (11.7-16.6) 03/08/23 16:25 Hct 41.7 % (42.0-52.0) L 03/08/23 16:25 MCV 94.1 fl (80-94) H 03/08/23 16:25 MCH 30.9 pg (28.0-34.0) 03/08/23 16: MCHC 32.9 g/dL (30.0-36.0) 03/08/23 16:25 RDW 13.3 % (12.1-15.1) 03/08/23 16: Plt Count 262 10^3/cmm (130-400) 03/08/23 16:25 MPV 9.9 fL (7.4-10.4) 03/08/23 16:25 Neut % (Auto) 65.3 % 03/08/23 16:25 Lymph % (Auto) 23.4 % 03/08/23 16:25 Mckinley % (Auto) 9.1 % 03/08/23 16:25 Eos % (Auto) 1.2 % 03/08/23 16:25 Baso % (Auto) 0.7 % 03/08/23 16:25 Neut # (Auto) 4.97 10^3/uL (1.8-7.7) 03/08/23 16:25 Lymph # (Auto) 1.8 10^3/uL (0.8-4.8) 03/08/23 16:25 Mckinley # (Auto) 0.7 10^3/uL (0.2-0.9) 03/08/23 16:25 Eos # (Auto) 0.1 10^3/uL (0.0-0.8) 03/08/23 16:25 Baso # (Auto) 0.1 10^3/uL (0.0-0.1) 03/08/23 16:25 Nucleated RBC % (auto) 0 % 03/08/23 16:25 Nucleated RBCs # 0.0 /100WBC 03/08/23 16:25 Sodium 137 mmol/L (136-145) 03/08/23 16:25 Potassium 3.5 mmol/L (3.5-5.1) 03/08/23 16:25 Chloride 103 mmol/L (98-107) 03/08/23 16:25 Carbon Dioxide 20 mmol/L (22-29) L 03/08/23 16:25 Anion Gap 17.5 (5-19) 03/08/23 16:25 BUN 27 mg/dL (6-20) H 03/08/23 16:25 Creatinine 1.4 mg/dL (0.7-1.2) H 03/08/23 16:25 GFR Calculation 51.9 mL/min (90-130) L 03/08/23 16:25 Glucose 120 mg/dL (65-115) H 03/08/23 16:25 Calculated Osmolality 290 mOsm/kg (285-295) 03/08/23 16:25 Calcium 8.9 mg/dL (8.5-10.5) 03/08/23 16:25 Total Bilirubin 0.3 mg/dL (0.15-1.2) 03/08/23 16:25 AST 60 U/L (0-40) H 03/08/23 16:25 ALT 38 U/L (0-41) 03/08/23 16:25 Alkaline Phosphatase 116 U/L (40-130) 03/08/23 16:25 Total Protein 6.7 g/dL (6.6-8.7) 03/08/23 16:25 Albumin 4.1 g/dL (3.5-5.2) 03/08/23 16:25 Globulin 2.6 g/dL (1.3-4.6) 03/08/23 16:25 Salicylates < 0.3 mg/dL (3-10) L 03/08/23 16:25 Acetaminophen < 5.0 ug/mL (10-30) L 03/08/23 16:25 Ethyl Alcohol 130 mg/dL (0-10) H 03/08/23 16:25 Discharge Plan Discharge Patient Disposition: Admitted As Inpatient Admit Provider: Alan Cornelius Clinical Impression: Suicidal ideation, Depression, Alcohol intoxication Condition: Stable Sign Out Sign Out Data: Patient Sign Out occurred on 03/08/23 at 17:14. Patient's care was discussed, and care was transferred from to Ayad David. Coding Level of Care Code ED Nanotechnology Technician for Chg Fwd Documented by User: KALPANA Dunne 03/08/23 18:50 HPI - Psych General: Chief Complaint: Psychiatric Symptoms Stated Complaint: SI Time Seen by Provider: 03/08/23 16:16 PFS ED PFSH: Medical History (Updated 03/09/23 @ 12:45 by Alan Cornelius MD) Alcohol abuse Altered mental status COPD (chronic obstructive pulmonary disease) Hypertension Polysubstance abuse Surgical History History of ankle surgery Social History Smoking and tobacco status: current every day smoker Alcohol intake: current Substance/Drug Use: current Current gender identity: Male Physical Exam Neuro: SUGEY COMA SCALE: document GCS findings Sugey coma scale total score: 15 Course Vital Signs: Vital signs: Vital Signs Temperature 98.1 F 03/10/23 06:00 Pulse Rate 83 03/10/23 06:00 Respiratory Rate 17 03/10/23 06:00 Blood Pressure 128/80 03/10/23 06:00 Pulse Oximetry 95 03/10/23 06:00 Oxygen Delivery Me thod Room Air 03/10/23 06:00 MDM - Psych Medical Decision Making Patient will be admitted to NPU to Dr. Cornelius for treatment of depression and suicidal ideations pending lab clearance. He is currently receiving fluids at this time for the mild elevations to his BUNs/Cr and hypotension. 57-year-old male patient comes in today for complaints of depression and suicidal ideation. Patient had made statements that he would shoot himself to end his life. Patient has a longstanding history of substance abuse disorder. Patient found himself homeless along with his spouse at this time. Patient's spouse is also in the emergency room with similar symptoms. I assumed care of this patient from Flakita Watson PA-C. She reported that patient has been accepted by Dr. Cornelius, psychiatrist awaiting IV fluid administration. I re viewed the patient with Dr. Vann, ER attending physician. He recommended [facility] [place] protocol and he would write orders for admission. Patient appears nontoxic. Patient appears in no acute distress at this time. Lab Data 03/08/23 16:25 03/08/23 16:25 Laboratory Results WBC 7.6 10^3/uL (4.0-10.0) 03/08/23 16:25 RBC 4.43 10^6/uL (4.1-5.3) 03/08/23 16:25 Hgb 13.7 g/dL (11.7-16.6) 03/08/23 16:25 Hct 41.7 % (42.0-52.0) L 03/08/23 16:25 MCV 94.1 fl (80-94) H 03/08/23 16:25 MCH 30.9 pg (28.0-34.0) 03/08/23 16:25 MCHC 32.9 g/dL (30.0-36.0) 03/08/23 16:25 RDW 13.3 % (12.1-15.1) 03/08/23 16:25 Plt Count 262 10^3/cmm (130-400) 03/08/23 16:25 MPV 9.9 fL (7.4-10.4) 03/08/23 16:25 Neut % (Auto) 65.3 % 03/08/23 16:25 Lymph % (Auto) 23.4 % 03/08/23 16:25 Mckinley % (Auto) 9.1 % 03/08/23 16:25 Eos % (Auto) 1.2 % 03/08/23 16:25 Baso % (Auto) 0.7 % 03/08/23 16:25 Neut # (Auto) 4.97 10^3/uL (1.8-7.7) 03/08/23 16:25 Lymph # (Auto) 1.8 10^3/uL (0.8-4.8) 03/08/23 16:25 Mckinley # (Auto) 0.7 10^3/uL (0.2-0.9) 03/08/23 16:25 Eos # (Auto) 0.1 10^3/uL (0.0-0.8) 03/08/23 16:25 Baso # (Auto) 0.1 10^3/uL (0.0-0.1) 03/08/23 16: Nucleated RBC % (auto) 0 % 03/08/23 16:25 Nucleated RBCs # 0.0 /100WBC 03/08/23 16:25 Sodium 137 mmol/L (136-145) 03/08/23 16:25 Potassium 3.5 mmol/L (3.5-5.1) 03/08/23 16:25 Chloride 103 mmol/L (98-107) 03/08/23 16:25 Carbon Dioxide 20 mmol/L (22-29) L 03/08/23 16:25 Anion Gap 17.5 (5-19) 03/08/23 16:25 BUN 27 mg/dL (6-20) H 03/08/23 16:25 Creatinine 1.4 mg/dL (0.7-1.2) H 03/08/23 16:25 GFR Calculation 51.9 mL/min (90-130) L 03/08/23 16:25 Glucose 120 mg/dL (65-115) H 03/08/23 16:25 Calculated Osmolality 290 mOsm/kg (285-295) 03/08/23 16:25 Calcium 8.9 mg/dL (8.5-10.5) 03/08/23 16:25 Total Bilirubin 0.3 mg/dL (0.15-1.2) 03/08/23 16:25 AST 60 U/L (0-40) H 03/08/23 16:25 ALT 38 U/L (0-41) 03/08/23 16:25 Alkaline Phosphatase 116 U/L (40-130) 03/08/23 16:25 Total Protein 6.7 g/dL (6.6-8.7) 03/08/23 16:25 Albumin 4.1 g/dL (3.5-5.2) 03/08/23 16:25 Globulin 2.6 g/dL (1.3-4.6) 03/08/23 16:25 Salicylates < 0.3 mg/dL (3-10) L 03/08/23 16:25 Acetaminophen < 5.0 ug/mL (10-30) L 03/08/23 16:25 Ethyl Alcohol 130 mg/dL (0-10) H 03/08/23 16:25 Discharge Plan Discharge Patient Disposition: Admitted As Inpatient Admit Provider: Alan Cornelius Clinical Impression: Suicidal ideation, Depression, Alcohol intoxication Condition: Stable Sign Out Sign Out Data: Patient Sign Out occurred on 03/08/23 at 17:14. Patient's care was discussed, and care was transferred from to Ayad David. Coding Level of Care Code ED Nanotechnology Technician for Chg Fwd Documented by User: Get Vann DO 03/10/23 16:08 HPI - Psych General: Chief Complaint: Psychiatric Symptoms Stated Complaint: SI Time Seen by Provider: 03/08/23 16:16 [facility] ED PFSH: Medical History (Updated 03/09/23 @ 12:45 by Alan Cornelius MD) Alcohol abuse Altered mental status COPD (chronic obstructive pulmonary disease) Hypertension Polysubstance abuse Surgical History History of ankle surgery Social History Smoking and tobacco status: current every day smoker Alcohol intake: current Substance/Drug Use: current Current gender identity: Male Physical Exam Neuro: SUGEY COMA SCALE: document GCS findings [place] coma scale total score: 15 Course Vital Signs: Vital signs: Vital Signs Temperature 98.1 F 03/10/23 06:00 Pulse Rate 83 03/10/23 06:00 Respiratory Rate 17 03/10/23 06:00 Blood Pressure 128/80 03/10/23 06:00 Pulse Oximetry 95 03/10/23 06:00 Oxygen Delivery Me thod Room Air 03/10/23 06:00 MDM - Psych Medical Decision Making Patient will be admitted to NPU to Dr. Cornelius for treatment of depression and suicidal ideations pending lab clearance. He is currently receiving fluids at this time for the mild elevations to his BUNs/Cr and hypotension. 57-year-old male patient comes in today for complaints of depression and suicidal ideation. Patient had made statements that he would shoot himself to end his life. Patient has a longstanding history of substance abuse disorder. Patient found himself homeless along with his spouse at this time. Patient's spouse is also in the emergency room with similar symptoms. I assumed care of this patient from Flakita Watson PA-C. She reported that patient has been accepted by Dr. Cornelius, psychiatrist awaiting IV fluid administration. I reviewed the patient with Dr. Vann, ER attending physician. He recommended [facility] [place] protocol and he would write orders for admission. Patient appears nontoxic. Patient appears in no acute distress at this time. Chart reviewed and patient discussed with midlevel. Agree with assessment and plan. Lab Data 03/08/23 16:25 03/08/23 16:25 Laboratory Results WBC 7.6 10^3/uL (4.0-10.0) 03/08/23 16:25 RBC 4.43 10^6/uL (4.1-5.3) 03/08/23 16:25 Hgb 13.7 g/dL (11.7-16.6) 03/08/23 16:25 Hct 41.7 % (42.0-52.0) L 03/08/23 16:25 MCV 94.1 fl (80-94) H 03/08/23 16:25 MCH 30.9 pg (28.0-34.0) 03/08/23 16:25 MCHC 32.9 g/dL (30.0-36.0) 03/08/23 16:25 RDW 13.3 % (12.1-15.1) 03/08/23 16:25 Plt Count 262 10^3/cmm (130-400) 03/08/23 16:25 MPV 9.9 fL (7.4-10.4) 03/08/23 16:25 Neut % (Auto) 65.3 % 03/08/23 16:25 Lymph % (Auto) 23.4 % 03/08/23 16:25 Mckinley % (Auto) 9.1 % 03/08/23 16:25 Eos % (Auto) 1.2 % 03/08/23 16:25 Baso % (Auto) 0.7 % 03/08/23 16:25 Neut # (Auto) 4.97 10^3/uL (1.8-7.7) 03/08/23 16:25 Lymph # (Auto) 1.8 10^3/uL (0.8-4.8) 03/08/23 16:25 Mckinley # (Auto) 0.7 10^3/uL (0.2-0.9) 03/08/23 16:25 Eos # (Auto) 0.1 10^3/uL (0.0-0.8) 03/08/23 16:25 Baso # (Auto) 0.1 10^3/uL (0.0-0.1) 03/08/23 16:25 Nucleated RBC % (auto) 0 % 03/08/23 16:25 Nucleated RBCs # 0.0 /100WBC 03/08/23 16:25 Sodium 137 mmol/L (136-145) 03/08/23 16:25 Potassium 3.5 mmol/L (3.5-5.1) 03/08/23 16:25 Chloride 103 mmol/L (98-107) 03/08/23 16:25 Carbon Dioxide 20 mmol/L (22-29) L 03/08/23 16:25 Anion Gap 17.5 (5-19) 03/08/23 16:25 BUN 27 mg/dL (6-20) H 03/08/23 16:25 Creatinine 1.4 mg/dL (0.7-1.2) H 03/08/23 16:25 GFR Calculation 51.9 mL/min (90-130) L 03/08/23 16:25 Glucose 120 mg/dL (65-115) H 03/08/23 16:25 Calculated Osmolality 290 mOsm/kg (285-295) 03/08/23 16:25 Calcium 8.9 mg/dL (8.5-10.5) 03/08/23 16:25 Total Bilirubin 0.3 mg/dL (0.15-1.2) 03/08/23 16:25 AST 60 U/L (0-40) H 03/08/23 16:25 ALT 38 U/L (0-41) 03/08/23 16:25 Alkaline Phosphatase 116 U/L (40-130) 03/08/23 16:25 Total Protein 6.7 g/dL (6.6-8.7) 03/08/23 16:25 Albumin 4.1 g/dL (3.5-5.2) 03/08/23 16:25 Globulin 2.6 g/dL (1.3-4.6) 03/08/23 16:25 Salicylates < 0.3 mg/dL (3-10) L 03/08/23 16:25 Acetaminophen < 5.0 ug/mL (10-30) L 03/08/23 16:25 Ethyl Alcohol 130 mg/dL (0-10) H 03/08/23 16:25 Discharge Plan Discharge Patient Disposition: Admitted As Inpatient Admit Provider: Alan Cornelius Clinical Impression: Suicidal ideation, Depression, Alcohol intoxication Condition: Stable Sign Out Sign Out Data: Patient Sign Out occurred on 03/08/23 at 17:14. Patient's care was discussed, and care was transferred from to Ayad David. Coding Level of Care Code ED Nanotechnology Technician for Gabriel Mortensen
[2023-03-08 16:33] LABS: Basophils # 0.1 10^3/uL (0.0-0.1); Basophils % 0.7 %; Eosinophils # 0.1 10^3/uL (0.0-0.8); Eosinophils % 1.2 %; Hematocrit 41.7 % (42.0-52.0); Hemoglobin 13.7 g/dL (11.7-16.6); Lymphocytes # 1.8 10^3/uL (0.8-4.8); Lymphocytes % 23.4 %; Mean Corpuscular HGB Conc 32.9 g/dL (30.0-36.0); Mean Corpuscular Hemoglobin 30.9 pg (28.0-34.0); Mean Corpuscular Volume 94.1 fl (80-94); Mean Platelet Volume 9.9 fL (7.4-10.4); Monocytes # 0.7 10^3/uL (0.2-0.9); Monocytes % 9.1 %; Neutrophils # 4.97 10^3/uL (1.8-7.7); Neutrophils % 65.3 %; Nucleated Red Blood Cells % 0 %; Platelet Count 262 10^3/cmm (130-400); Red Blood Count 4.43 10^6/uL (4.1-5.3); Red Cell Distribution Width 13.3 % (12.1-15.1); White Blood Count 7.6 10^3/uL (4.0-10.0)
[2023-03-08 16:47] VITALS: BP 93/54; PULSE 89; RESP 18; O2SAT 97
[2023-03-08 16:50] LABS: Alanine Aminotransferase 38 U/L (0-41); Albumin Level 4.1 g/dL (3.5-5.2); Alcohol Level 130 mg/dL (0-10); Alkaline Phosphatase 116 U/L (40-130); Anion Gap 17.5 (5-19); Aspartate Amino Transferase 60 U/L (0-40); Blood Urea Nitrogen 27 mg/dL (6-20); Calcium 8.9 mg/dL (8.5-10.5); Carbon Dioxide 20 mmol/L (22-29); Chloride 103 mmol/L (98-107); Globulin 2.6 g/dL (1.3-4.6); Glomerular Filtration Rate 51.9 mL/min (90-130); Glucose 120 mg/dL (65-115); Osmolality Calculated 290 mOsm/kg (285-295); Potassium 3.5 mmol/L (3.5-5.1); Sodium 137 mmol/L (136-145); Total Bilirubin 0.3 mg/dL (0.15-1.2); Total Protein 6.7 g/dL (6.6-8.7)
[2023-03-08 16:57] LABS: Acetaminophen < 5.0 ug/mL (10-30); Salicylate < 0.3 mg/dL (3-10)
[2023-03-08] MEDS: sodium chloride 0.9% 1,000 ML 999 ML IV (17:27)
--- NOTE | 2023-03-08 17:33 | PC.NURSE ---
UPON ENTERING THE ROOM, PATIENT WAS TALKING ABOUT THE SPECIFIC PROVIDER SEEING HIM. PATIENT STATED THAT HE HAS SEEN THIS SPECIFIC PROVIDER, ZAINAB ATKINSON, AND STATED THAT SHE DON'T KNOW ANYTHING ABOUT MY HISTORY THAT SHE SAYS SHE DOES. SHE JUST DOESN'T WANT TO GIVE ME PAIN MEDICINE. I CAME HERE FOR MY BACK AND SHE TOLD ME IT WAS ARTHRITIS AND THEN I WENT TO [place] AND THEY TOLD ME THAT I NEEDED SURGERY. THAT [facility] DON'T KNOW NOTHING. WHILE SPEAKING, PATIENT BEGAN TO RAISE HIS VOICE AND BECOME AGITATED. THIS NURSE VERBALLY DEESCALATED THE SITUATION. PATIENT THEN STATED I AM GOING TO FIND MY AND WALK OUT OF HERE. I DON'T EVEN KNOW WHY I WAS BROUGHT HERE. PATIENT WAS EDUCATED THAT HE WAS BROUGHT VIA EMS FOR SI WITH A PLAN AND WAS REMINDED THAT HE CALLED THE AMBULANCE. PATIENT VERBALIZED UNDERSTANDING BUT STILL PROCEEDED TO VERBALIZE DISSATISFACTION WITH THE CARE PROVIDED FROM THIS SPECIFIC PROVIDER. CHARGE NURSE NOTIFIED.
[2023-03-08 18:30] VITALS: BP 117/75; PULSE 88; O2SAT 92
--- NOTE | 2023-03-08 18:43 | PC.NURSE ---
PRIYA OKAYED GIVING THIAMINE VIA IV INSTEAD OF IM.
[2023-03-08] MEDS: LORazepam 2 mg Tablet PO (20:51)
[2023-03-08 20:53] VITALS: BP 127/84; PULSE 81; RESP 18; TEMP 36.8; O2SAT 98
[2023-03-08] MEDS: ibuprofen 600 mg Tablet PO (21:01)
[2023-03-08] MEDS: hyDROXYzine 25 mg Capsule 50 MG PO (21:01)
[2023-03-08] MEDS: trazodone 50 mg Tablet PO (21:02)
[2023-03-08 21:38] VITALS: BP 150/90; PULSE 55; RESP 17; TEMP 36.8; O2SAT 98
--- NOTE | 2023-03-08 22:42 | PC.NURSE ---
Pt arrived to NPU w/nurse and tech at side. Pt is anxious and requesting pain medication stating he has been in the ER all day and they told him NPU staff would give him medication for pain. Pt expresses concern for his is currently in the ER, states we met in a halfway and have been together ever since, she has SI and OCD. Pt is cooperative w/assessment. Medication administered for pain.
[2023-03-09 00:39] LABS: Amphetamines Screen Urine Positive (Negative); Barbiturates Screen Urine Negative (Negative); Benzodiazepines Screen Urine Negative (Negative); Cocaine Screen Urine Negative (Negative); Opiate Screen Urine Negative (Negative); PCP Screen Urine Negative (Negative); THC Screen Urine Positive (Negative)
[2023-03-09 06:00] VITALS: BP 143/103; PULSE 102; RESP 20; TEMP 36.7; O2SAT 95
[2023-03-09] MEDS: multivitamin therapeutic Tablet 1 TAB PO (08:51)
[2023-03-09] MEDS: thiamine 100 mg Tablet PO (08:51)
[2023-03-09] MEDS: folic acid 1 mg Tablet PO (08:51)
[2023-03-09] MEDS: benztropine 1 mg Tablet PO (08:51)
--- NOTE | 2023-03-09 09:29 | PC.NURSE ---
Denies avh and si/hi. Patient stated, I'm just hanging in there, when asked how he felt this morning. He said he was brought here with his and was worried because he didn't know where she was sent from this hospital. This RN was able to find where she was sent and patient expressed relief. He stated he is currently homeless and that he used to live in a custodial ([facility]) and enjoyed living there, but moved out at his [id number] request. Patient is interested in potentially moving back there. Calm and cooperative with assessment.
--- NOTE | 2023-03-09 12:00 | W.PM.NPUH&PS ---
Providers/Chief Complaint Admitting Physician: Alan Cornelius MD Chief Complaint: SI HPI NPU History of Present Illness Sam Marroquin is a 57 year old male who presented to the emergency department with the following report: Chief Complaint: Psychiatric Symptoms Stated Complaint: SI Time Seen by Provider: 03/08/23 16:16 Source: patient Mode of arrival: ambulatory Limitations: no limitations History of Present Illness: Patient is a 57-year-old male with past medical history of polysubstance abuse and depression who presents to the emergency department complaining of suicidal ideation onset today. Patient says he was recently seen in the emergency department for pain, and that his medications ran out and he has been in constant pain since. He also says that he hit rock bottom lately as he was kicked out of his motel and is homeless, and says that he has not eaten in 6 hours. His current plan for suicide is to take his brother's gun and blow his brains out. He states he is still feeling suicidal at this time and also endorses auditory hallucinations, stating that he can hear his mother's voice speaking to him. He denies any homicidal ideations. He says he has been on psychiatric medication in the past, but has not taken such meds in 3 years. Patient is checking in along with his who is also suicidal. They are both requesting admission to NPU. complaint: suicidal ideation and feels depressed Onset (ago): hour(s) Duration: constant History of same: Yes Context: significant life stressor Associated psychiatric symptoms: depression, suicidal ideation and auditory hallucinations Associated symptoms: Reports auditory hallucinations, depression and suicidal ideation; Deny visual hallucinations or homicidal ideation If self harm: admits thoughts of self harm and has plan He was admitted to the neuropsychiatric unit for definitive treatment of those issues. He presented to the emergency department with his after they had been essentially kicked out of their motel room because they ran out of money. He is known to this television script writer through a short stay back in 2019. He had limited recollection of this television script writer. He presents reporting that outside of that stay he denied any significant inpatient or outpatient psychiatric services. He reports that he stopped taking psychiatric medication because he felt that he did better off of it and reports she has been off of it more or less since 2018. He reports that he has been on Klonopin and Prozac in the past. He reports that they were both helpful. He reports that he smokes about a pack and a half of cigarettes a day, has alcohol every once in a while, denies marijuana because it makes him paranoid or he would use it to assist with his pain and denies cocaine methamphetamine opiates or any other illicit drug use. Going to rehab about 15 years ago and having a DUI about 20 years ago but denies any other charges. He reports that he and his are both on SSD and have been staying in a motel but it got too expensive. He reports that previously [place] and recently the senior telecommunications engineer increased the rent by double and so they found themselves trying to scratch by with housing which has not been successful and they have been just getting by. He reports that afterwards they were so flustered that they both came to the hospital with suicidal thoughts and he reports that he is open to restarting medication. We discussed the risks, benefits and alternatives of starting Prozac 20 mg p.o. every morning and he understood and agreed to proceed as is documented in this note. 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 He reports he has had multiple surgeries and significant pain issues after that. He reports that he has been 3 times and once he has 3 children, he has never been in the and he endorses being a Zoroastrian. He reports he has been in care home about 3 times the longest time for 30 days. 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 He endorses a family history of mental health issues on both sides of the family denies significant addiction but does report that there was a brother with PTSD that committed suicide at 1 point. He reports that he is the only other child that his 2 parents had together before they split up. He reports that there was some emotional abuse in his childhood but denies other abuse and does report that his mother at 1 point had given him away but then went back and got him. Per his 11/26/2019 [facility] inpatient psychiatric short stay summary: History of Present Illness Sam Marroquin is a 54 year old male Sam presented to the emergency room having just been seen several days ago for a similar presentation. It was noted, in the note of the emergency room doctor, that he was admitted secondary to concerns for lethality. Sam presents today reporting that again he was struggling with his pain and was in the midst of what would seem like routine questions, ?do you smoke,? ?have you been having any cough,? and COVID questions, and within those questions he suggests that there was a question about ?do you want to kill yourself? and he said yes, but was not even realizing the question that had been asked until they later started questioning him about it. So then when he denied it, it seemed suspicious, and he endorses that is what led to his hospitalization. He presents seeming very bright and cheerful and denying any issues. He said this is purely a misunderstanding. He denies any substantive changes in his psycho-social circumstances. He reports that he has an appointment tomorrow, as he had described when last we saw him, on 11-22-19. An excerpt from the 11-21 evaluation is included, which we reviewed, with him endorsing no significant changes.? ? MENTAL STATUS EXAMINATION: ? ? This is an obese, white male, with adequate dress, grooming, and eye contact. No abnormal movements. Cooperative with exam in no acute distress. Speech was normal rate and volume. Mood described as pretty good; affect congruent. Thought process, organized. Thought content: patient denied any suicidal or homicidal ideation, there were no delusions reported or noted, he denied any auditory or visual hallucinations. Attention, concentration, and memory appeared intact but none were formally tested. He is alert and oriented times three. Insight and judgment appear fair.? ? Per 11/22/2019 [facility] [place] eval: History of Present Illness Sam Marroquin is a 54 year old male who presents to the emergency room reporting that he had a problem with his pain getting out of control. His pain got so bad that he argues that he was having thoughts to hurt himself. He came to the emergency room for assistance with his pain, but the treatment team here has had difficulty with him in the past and was not planning on giving him any opiates. Ultimately, he decided he wanted to be discharged and because he had mentioned killing himself earlier, they wanted this television script writer?s opinion on the case. The patient reports he no longer feels that way but ultimately, he is accepting the fact that on the 6th of this month he has an appointment with a pain management office and hopefully there will be definitive treatment there. He denies depression or any current psychiatric issues that might warrant further hospitalization and treatment. We reviewed some of his past documentation including his last evaluation which can be seen below for some backdrop of his interface with [facility] [place]. Per recent [facility] [place] [facility] eval 10/03/19: Consulting Physican/Specialty*:?? Aric Corbett MD Psychiatry Reason for Consult*:?? The patient wants to go home.? He has been abusing alprazolam and Klonopin but now affirms that he has no intention to endanger himself thusly. Attending Physician:?? Morris Ramirez MD ? Primary Care Provider:?? Amber Sandoval ? Psych Consult HPI History of Present Illness Patient is a 54-year-old male who has had multiple admissions in 2018 and recurring ER visits for chemical dependency, drug abuse, alcohol intoxication and suicidal ideation.? Once again, he was found by his , who had left him sleeping in bed for 3 days.? She could not arouse him and called intensive care specialist.? He had been prescribed Xanax Klonopin doxepin gabapentin cyproheptadine quetiapine and tramadol.? His acknowledged that he may have taken 60 tablets of Xanax together.? He originally had hypo-saturation on room air and a Sugey Coma Scale of 12.? His initial ABG showed PO2 in the 40s. He also had bilateral infiltrates suggesting pneumonia, no doubt due to 3 days of aspiration of secretions normally swallowed.? He was on his way to a respiratory arrest but was medically stabilized in the ER and as an inpatient.? Yesterday he was found to be much improved, after it was discovered that his had been smuggling alprazolam or some other sedating compound to him.? He was put on a one-to-one and he stabilized.? The nurses believe that his fluctuant level of sedation can only be explained by additional doses of some sedating compound, most likely a benzodiazepine. Meds NPU Home Medications Medication Instructions Recorded Confirmed Last Taken Type doxepin 75 mg capsule 75 mg PO BEDTIME 09/28/19 03/08/23 03/07/23 History fluticasone propionate 50 1 - 2 spray intranasal BID PRN 09/28/19 03/08/23 09/28/19 History mcg/actuation nasal UNKNOWN spray,suspension gabapentin 600 mg tablet 600 mg PO TID 09/28/19 03/08/23 03/08/23 History hydrochlorothiazide 25 mg tablet 25 mg PO DAILY 09/28/19 03/08/23 03/08/23 History lisinopril 20 mg tablet 20 mg PO DAILY 09/28/19 03/08/23 03/08/23 History lovastatin 10 mg tablet 10 mg PO DAILY 09/28/19 03/08/23 03/08/23 History methocarbamol 750 mg tablet 750 mg PO TID 09/28/19 03/08/23 03/08/23 History montelukast 10 mg tablet 10 mg PO DAILY 09/28/19 03/08/23 03/08/23 History potassium chloride 20 mEq 20 meq PO BID 09/28/19 03/08/23 03/08/23 History tablet,extended release(part/cryst) tiotropium bromide 18 mcg capsule 1 cap inhalation DAILY 09/28/19 03/08/23 09/28/19 History with inhalation device (Spiriva with HandiHaler) albuterol sulfate 2.5 mg/3 mL 2.5 mg inhalation TID 11/22/19 03/08/23 Unknown History (0.083 %) solution for nebulization diclofenac sodium 75 mg 75 mg PO BID PRN Back Pain 11/22/19 03/08/23 03/08/23 History tablet,delayed release fluticasone 250 mcg-salmeterol 50 1 inh inhalation BID 11/22/19 03/08/23 03/08/23 History mcg/dose blistr powdr for inhalation omeprazole 20 mg tablet,delayed 20 mg PO DAILY 11/22/19 03/08/23 03/08/23 History release celecoxib 200 mg capsule 200 mg PO BID #20 caps 03/03/23 03/08/23 03/08/23 Rx Allergies Allergy/AdvReac Type Severity Reaction Status Date / Time lurasidone [From Latuda] Allergy Unknown Verified 03/08/23 16:41 amoxicillin AdvReac Unknown ADR-Abdominal Verified 03/08/23 16:41 Pain duloxetine [From Cymbalta] AdvReac ADR-Agitate Verified 03/08/23 16:41 d PFSH NPU PFSH: Medical History (Updated 03/09/23 @ 12:45 by Alan Cornelius MD) Alcohol abuse Altered mental status COPD (chronic obstructive pulmonary disease) Hypertension Polysubstance abuse Surgical History History of ankle surgery Social History Smoking and tobacco status: current every day smoker Alcohol intake: current Substance/Drug Use: current Current gender identity: Male Mental Status Exam MSE Comments: This is an obese, white male, in hospital scrubs with adequate grooming, and eye contact. No abnormal movements except for mild psychomotor retardation. Cooperative with exam in mild distress. Speech was slightly decreased rate and volume. Mood described as a little down; affect subdued. Thought process, organized. Thought content: patient endorsed suicidal but denied homicidal ideation, there were no delusions reported or noted, patient denied any auditory or visual hallucinations. Attention, concentration, and memory appear intact but were not formally tested. He is alert and oriented times three. Insight and judgment are limited, impulse control was limited. Vitals/I&O/Wt Last Vital Signs Temp 98.0 F 03/09/23 06:00 Pulse 102 H 03/09/23 06:00 Resp 20 H 03/09/23 06:00 BP 143/103 03/09/23 06:00 Pulse Ox 95 03/09/23 06:00 O2 Del Method Room Air 03/09/23 06:00 03/08/23 03/09/23 03/09/23 22:59 06:59 14:59 Intake Total 1000 / 1000 Balance 1000 / 1000 Weight last 48 hrs Weight 113.398 kg Data NPU 03/08/23 16:25 03/08/23 16:25 A&P Assessment and plan (1) Depression: . Qualifiers: Depression Type: unspecified Qualified Code(s): F32.9 - Major depressive disorder, single episode, unspecified (2) Suicidal ideation: (3) Polysubstance abuse: (4) Alcohol abuse: (5) Arthralgia of right hip: (6) Suicidal ideation: (7) Alcohol intoxication: Qualifiers: Complication of substance-induced condition: uncomplicated Qualified Code(s): F10.920 - Alcohol use, unspecified with intoxication, uncomplicated (8) COPD (chronic obstructive pulmonary disease): (9) Major depressive disorder, recurrent: (10) Anxiety disorder: Plan This is a 57 year old, white male, with a history of chronic pain as well as some depression and mood dysregulation who is currently reporting that he has been depressed and suicidal as he has not been on medications for some time and reported an openness to restart medication. 1. Continue current medication. Restart Prozac 20 mg p.o. every morning. 2. Continue every 15 minute checks for safety. 3. Encourage individual, group and milieu therapies. 4. Encourage sober living treatment after discharge at the highest level of care to which he is willing to commit. Involuntary Hold Information 96 Hour Hold: 96 Hour Involuntary Admission: No 96 Hour Hold Ending Date: 12/02/19 96 Hour Hold Ending Time: 04:51 Attestations NPU Medical Necessity Statement*: Inpatient hospitalization is medically necessary and the clinically appropriate intervention at this time. We will monitor medications and make changes as indicated. He will be in the hospital for over 2 midnights. Likely length of stay 3 to 5 days. Coding Level of Care Code Acute Code for [facility] Fwd Diagnoses Depression F32.9 Depression Type: unspecified Suicidal ideation R45.851 Polysubstance abuse F19.10 Alcohol abuse F10.10 Arthralgia of right hip M25.551 Alcohol intoxication F10.920 Complication of substance-induced condition: uncomplicated COPD (chronic obstructive pulmonary disease) J44.9 Major depressive disorder, recurrent F33.9 Anxiety disorder F41.9
[2023-03-09 14:00] VITALS: BP 150/88; PULSE 81; RESP 16; TEMP 36.6; O2SAT 97
[2023-03-09] MEDS: methocarbamol 500 mg Tablet PO ×2 (15:12→20:33)
[2023-03-09] MEDS: gabapentin 300 mg Capsule 600 MG PO ×2 (15:12→20:33)
[2023-03-09] MEDS: nicotine 4 mg lozenge MUCOUS MEM (17:56)
[2023-03-09 20:15] VITALS: BP 145/88; PULSE 76; RESP 18; TEMP 37.1; O2SAT 95
[2023-03-09] MEDS: potassium chloride ER 20 mEq Tablet PO (20:33)
[2023-03-09] MEDS: ibuprofen 600 mg Tablet PO (20:33)
[2023-03-09] MEDS: doxepin 25 mg Capsule 75 MG PO (20:33)
[2023-03-09] MEDS: LORazepam 2 mg Tablet PO (20:33)
[2023-03-10 06:00] VITALS: BP 128/80; PULSE 83; RESP 17; TEMP 36.7; O2SAT 95
[2023-03-10] MEDS: gabapentin 300 mg Capsule 600 MG PO ×3 (08:42→20:13)
[2023-03-10] MEDS: hydroCHLOROthiazide 25 mg Tablet PO (08:42)
[2023-03-10] MEDS: multivitamin therapeutic Tablet 1 TAB PO (08:42)
[2023-03-10] MEDS: folic acid 1 mg Tablet PO (08:42)
[2023-03-10] MEDS: potassium chloride ER 20 mEq Tablet PO ×2 (08:42→20:13)
[2023-03-10] MEDS: lisinopril 20 mg Tablet PO (08:43)
[2023-03-10] MEDS: thiamine 100 mg Tablet PO (08:43)
[2023-03-10] MEDS: pantoprazole DR 40 mg Tablet PO (08:43)
[2023-03-10] MEDS: montelukast sodium 10 mg Tablet PO (08:43)
[2023-03-10] MEDS: atorvastatin 40 mg Tablet 20 MG PO (08:43)
[2023-03-10] MEDS: methocarbamol 500 mg Tablet PO ×3 (08:45→20:13)
[2023-03-10] MEDS: nicotine 21 mg Patch 1 PATCH TRANSDERMA (09:57)
[2023-03-10 14:00] VITALS: BP 139/90; PULSE 75; RESP 17; TEMP 36.7; O2SAT 96
--- NOTE | 2023-03-10 14:38 | P.NPUPN_ITS ---
Subjective NPU Subjective: Patient presented today reporting that he is doing fairly well. He reports he is working with the social work team and they have found a viable place for him to go and hopefully get his feet back under him for housing and treatment. We discussed the impact that addiction can have on the other basics of life and the importance of his sobriety. Mental Status Exam MSE Comments: This is an obese, white male, in hospital scrubs with adequate grooming, and eye contact. No abnormal movements except for mild psychomotor retardation. Cooperative with exam in mild distress. Speech was slightly decreased rate and volume. Mood described as a little down; affect subdued. Thought process, organized. Thought content: patient endorsed suicidal but denied homicidal ideation, there were no delusions reported or noted, patient denied any auditory or visual hallucinations. Attention, concentration, and memory appear intact but were not formally tested. He is alert and oriented times three. Insight and judgment are limited, impulse control was limited. Vitals/I&O/Wt Last Vital Signs Temp 98.1 F 03/10/23 06:00 Pulse 83 03/10/23 06:00 Resp 17 03/10/23 06:00 BP 128/80 03/10/23 06:00 Pulse Ox 95 03/10/23 06:00 O2 Del Method Room Air 03/10/23 06:00 Weight last 48 hrs Weight 113.398 kg Data NPU 03/08/23 16:25 03/08/23 16:25 A&P Assessment and plan (1) Depression: . Qualifiers: Depression Type: unspecified Qualified Code(s): F32.9 - Major depressive disorder, single episode, unspecified (2) Anxiety disorder: (3) Major depressive disorder, recurrent: (4) Alcohol intoxication: Qualifiers: Complication of substance-induced condition: uncomplicated Qualified Code(s): F10.920 - Alcohol use, unspecified with intoxication, uncomplicated (5) Suicidal ideation: Plan This is a 57 year old, white male, with a history of chronic pain as well as some depression and mood dysregulation who is currently reporting that he has been depressed and suicidal as he has not been on medications for some time and reported an openness to restart medication. 1. Continue current medication. Restarted Prozac 20 mg p.o. every morning. 2. Continue every 15 minute checks for safety. 3. Encourage individual, group and milieu therapies. 4. Encourage sober living treatment after discharge at the highest level of care to which he is willing to commit. Tentative plan for discharge to [facility] in [place] Monday before 10 AM Involuntary Hold Information 96 Hour Hold: 96 Hour Involuntary Admission: No 96 Hour Hold Ending Date: 12/02/19 96 Hour Hold Ending Time: 04:51 Attestations NPU Medical Necessity Statement*: Inpatient hospitalization is medically necessary and the clinically appropriate intervention at this time. We will monitor medications and make changes as indicated. Likely length of stay 2-4 days. Coding Level of Care Code Acute Code for [facility] Fwd Diagnoses Depression F32.9 Depression Type: unspecified Anxiety disorder F41.9 Major depressive disorder, recurrent F33.9 Alcohol intoxication F10.920 Complication of substance-induced condition: uncomplicated Suicidal ideation R45.853
[2023-03-10] MEDS: albuterol 2.5 mg/3 mL Neb INHALATION (18:13)
[2023-03-10 18:14] VITALS: PULSE 79; RESP 16; O2SAT 95
[2023-03-10 18:15] VITALS: PULSE 78
[2023-03-10 19:19] LABS: SARS Covid-2 Antigen Negative (Negative)
[2023-03-10] MEDS: doxepin 25 mg Capsule 75 MG PO (20:13)
[2023-03-10] MEDS: OLANZapine 5 mg ODT PO (20:33)
[2023-03-10 21:55] VITALS: BP 138/86; PULSE 90; RESP 18; TEMP 36.8; O2SAT 96
[2023-03-11 06:00] VITALS: BP 137/83; PULSE 87; RESP 18; O2SAT 97
[2023-03-11] MEDS: methocarbamol 500 mg Tablet PO ×3 (09:40→20:43)
[2023-03-11] MEDS: atorvastatin 40 mg Tablet 20 MG PO (09:40)
[2023-03-11] MEDS: montelukast sodium 10 mg Tablet PO (09:40)
[2023-03-11] MEDS: gabapentin 300 mg Capsule 600 MG PO ×3 (09:40→20:43)
[2023-03-11] MEDS: multivitamin therapeutic Tablet 1 TAB PO (09:40)
[2023-03-11] MEDS: hydroCHLOROthiazide 25 mg Tablet PO (09:40)
[2023-03-11] MEDS: lisinopril 20 mg Tablet PO (09:40)
[2023-03-11] MEDS: folic acid 1 mg Tablet PO (09:40)
[2023-03-11] MEDS: pantoprazole DR 40 mg Tablet PO (09:41)
[2023-03-11] MEDS: potassium chloride ER 20 mEq Tablet PO ×2 (09:41→20:43)
[2023-03-11] MEDS: thiamine 100 mg Tablet PO (09:41)
[2023-03-11] MEDS: ibuprofen 600 mg Tablet PO ×2 (10:02→20:42)
--- NOTE | 2023-03-11 11:00 | P.NPUPN_ITS ---
Subjective NPU Subjective: Patient presented today reporting that he is doing okay. He reports that he is committed to his recovery and getting to [place] to [address]. He is not clear how his significant other is going to get there but he is in communication with her. He denied any side effects of the medications. He has had a few breathing treatments but otherwise denied any challenges. We discussed the plan for discharge in less than 48 hours on Monday. Mental Status Exam MSE Comments: This is an obese, white male, in hospital scrubs with adequate grooming, and eye contact. No abnormal movements except for mild psychomotor retardation. Cooperative with exam in mild distress. Speech was slightly decreased rate and volume. Mood described as a little down; affect subdued. Thought process, organized. Thought content: patient endorsed suicidal but denied homicidal ideation, there were no delusions reported or noted, patient denied any auditory or visual hallucinations. Attention, concentration, and memory appear intact but were not formally tested. He is alert and oriented times three. Insight and judg ment are limited, impulse control was limited. Vitals/I&O/Wt Last Vital Signs Temp 98.3 F 03/10/23 21:55 Pulse 87 03/11/23 06:00 Resp 18 03/11/23 06:00 BP 137/83 03/11/23 06:00 Pulse Ox 97 03/11/23 06:00 O2 Del Method Room Air 03/11/23 06:00 Data NPU 03/08/23 16:25 03/08/23 16:25 A&P Assessment and plan (1) Depression: . Qualifiers: Depression Type: unspecified Qualified Code(s): F32.9 - Major depressive disorder, single episode, unspecified (2) Anxiety disorder: (3) Major depressive disorder, recurrent: (4) Alcohol intoxication: Qualifiers: Complication of substance-induced condition: uncomplicated Qualified Code(s): F10.920 - Alcohol use, unspecified with intoxication, uncomplicated (5) Suicidal ideation: Plan This is a 57 year old, white male, with a history of chronic pain as well as some depression and mood dysregulation who is currently reporting that he has been depressed and suicidal as he has not been on medications for some time and reported an openness to restart medication. 1. Continue current medication. Restarted Prozac 20 mg p.o. every morning. 2. Continue every 15 minute checks for safety. 3. Encourage individual, group and milieu therapies. 4. Encourage sober living treatment after discharge at the highest level of ca re to which he is willing to commit. Tentative plan for discharge to [facility] in [place] Monday before 10 AM Involuntary Hold Information 96 Hour Hold: 96 Hour Involuntary Admission: No 96 Hour Hold Ending Date: 12/02/19 96 Hour Hold Ending Time: 04:51 Attestations NPU Medical Necessity Statement*: Inpatient hospitalization is medically necessary and the clinically appropriate intervention at this time. We will monitor medications and make changes as indicated. Likely length of stay 2-3 days. Coding Level of Care Code Acute Code for [facility] Fwd Diagnoses Depression F32.9 Depression Type: unspecified Anxiety disorder F41.9 Major depressive disorder, recurrent F33.9 Alcohol intoxication F10.920 Complication of substance-induced condition: uncomplicated Suicidal ideation R45.858
[2023-03-11] MEDS: fluoxetine 20 mg Capsule PO (11:32)
[2023-03-11 11:43] VITALS: PULSE 74; RESP 16; O2SAT 97
[2023-03-11] MEDS: albuterol 2.5 mg/3 mL Neb INHALATION ×2 (11:51→21:02)
[2023-03-11 11:53] VITALS: PULSE 85
[2023-03-11 14:00] VITALS: BP 94/57; PULSE 73; RESP 16; TEMP 37.1; O2SAT 95
--- NOTE | 2023-03-11 20:30 | PC.NURSE ---
ASSESSMENT COMPLETED WHEN PT WAS IN ROOM. PT DENIES SI/HI AND AVH AT THIS TIME. REPORTS PAIN 8/10 IN HIP AND KNEE. IBUPROFEN WILL BE GIVEN, PT REQUEST IT BE GIVEN WITH HIS BEDTIME MEDS. PT REPORTS HE WILL DISCHARGE MONDAY. Request THAT THIS RN LOOK TO SEE IF ORDERED HYDROCODONE FOR PAIN. INFORMED PT THAT IT WAS NOT ORDERED. PT APPEARS WITHDRAWN AND DEPRESSED. SUPPORT VOICED.
[2023-03-11] MEDS: nicotine 4 mg lozenge MUCOUS MEM (20:42)
[2023-03-11] MEDS: doxepin 25 mg Capsule 75 MG PO (20:43)
[2023-03-11] MEDS: trazodone 50 mg Tablet PO (20:43)
[2023-03-11 20:50] VITALS: PULSE 93; RESP 18; O2SAT 99
[2023-03-11] MEDS: budesonide 0.5 mg/2 mL Neb INHALATION (21:02)
[2023-03-11 22:00] VITALS: BP 180/81; PULSE 96; RESP 16; TEMP 36.8; O2SAT 98
[2023-03-12 06:00] VITALS: BP 120/86; PULSE 78; RESP 18; O2SAT 96
[2023-03-12] MEDS: pantoprazole DR 40 mg Tablet PO (09:51)
[2023-03-12] MEDS: hydroCHLOROthiazide 25 mg Tablet PO (09:51)
[2023-03-12] MEDS: lisinopril 20 mg Tablet PO (09:51)
[2023-03-12] MEDS: folic acid 1 mg Tablet PO (09:51)
[2023-03-12] MEDS: fluoxetine 20 mg Capsule PO (09:51)
[2023-03-12] MEDS: atorvastatin 40 mg Tablet 20 MG PO (09:51)
[2023-03-12] MEDS: thiamine 100 mg Tablet PO (09:51)
[2023-03-12] MEDS: methocarbamol 500 mg Tablet PO ×3 (09:51→20:46)
[2023-03-12] MEDS: gabapentin 300 mg Capsule 600 MG PO ×3 (09:52→20:46)
[2023-03-12] MEDS: multivitamin therapeutic Tablet 1 TAB PO (09:53)
[2023-03-12] MEDS: potassium chloride ER 20 mEq Tablet PO ×2 (09:53→20:46)
[2023-03-12] MEDS: albuterol 2.5 mg/3 mL Neb INHALATION ×2 (11:44→19:19)
[2023-03-12 11:45] VITALS: PULSE 97; RESP 16; O2SAT 98
[2023-03-12 13:55] VITALS: BP 127/84; PULSE 103; RESP 16; TEMP 36.8; O2SAT 96
[2023-03-12] MEDS: nicotine 4 mg lozenge MUCOUS MEM ×3 (14:45→21:32)
[2023-03-12] MEDS: phenyleph-mineral oil-petrolat Oint 28 gm 1 APPLIC TOPICAL ×2 (15:41→20:47)
--- NOTE | 2023-03-12 18:59 | P.NPUPN_ITS ---
Subjective NPU Subjective: Patient presented today reporting that he is feeling better and feeling optimistic that he and his will be able to start a new life together in the [place] area. Reportedly she is also being sent to [facility] and they will reconvene in [place] and again planning for a better version of her life. He denied any new issues and reports optimism about his recovery and overall prospects. Mental Status Exam MSE Comments: This is an obese, white male, in hospital scrubs with adequate grooming, and eye contact. No abnormal movements except for mild psychomotor retardation. Cooperative with exam in no acute distress. Speech was more normal rate and volume. Mood described as a little down; affect subdued. Thought process, organized. Thought content: patient denied suicidal or homicidal ideation, there were no delusions reported or noted, patient denied any auditory or visual hallucinations. Attention, concentration, and memory appear intact but were not formally tested. He is alert and oriented times three. Insight and judgment are limited, impulse control was limited. Vitals/I&O/Wt Last Vital Signs Temp 97.2 F L 03/12/23 21:00 Pulse 88 03/12/23 21:00 Resp 17 03/12/23 21:00 BP 148/82 03/12/23 21:00 Pulse Ox 95 03/12/23 21:00 O2 Del Method Room Air 03/12/23 21:00 Weight last 48 hrs Weight 108.579 kg Data NPU 03/08/23 16:25 03/08/23 16:25 A&P Assessment and plan (1) Depression: . Qualifiers: Depression Type: unspecified Qualified Code(s): F32.9 - Major depressive disorder, single episode, unspecified (2) Anxiety disorder: (3) Major depressive disorder, recurrent: (4) Alcohol intoxication: Qualifiers: Complication of substance-induced condition: uncomplicated Qualified Code(s): F10.920 - Alcohol use, unspecified with intoxication, uncomplicated (5) Suicidal ideation: Plan This is a 57 year old, white male, with a history of chronic pain as well as safia e depression and mood dysregulation who is currently reporting that he has been depressed and suicidal as he has not been on medications for some time and reported an openness to restart medication. 1. Continue current medication. Restarted Prozac 20 mg p.o. every morning. 2. Continue every 15 minute checks for safety. 3. Encourage individual, group and milieu therapies. 4. Encourage sober living treatment after discharge at the highest level of care to which he is willing to commit. Plan to discharge tomorrow morning to [facility]. In [place]. Involuntary Hold Information 96 Hour Hold: 96 Hour Involuntary Admission: No 96 Hour Hold Ending Date: 12/02/19 96 Hour Hold Ending Time: 04:51 Attestations NPU Medical Necessity Statement*: Inpatient hospitalization is medically necessary and the clinically appropriate intervention at this time. We will monitor medications and make changes as indicated. Likely length of stay 1-2 days. Coding Level of Care Code Acute Code for g Fwd Diagnoses Depression F32.9 Depression Type: unspecified Anxiety disorder F41.9 Major depressive disorder, recurrent F33.9 Alcohol intoxication F10.920 Complication of substance-induced condition: uncomplicated Suicidal ideation R45.856
[2023-03-12] MEDS: budesonide 0.5 mg/2 mL Neb INHALATION (19:19)
[2023-03-12 19:21] VITALS: PULSE 103; RESP 16; O2SAT 96
[2023-03-12] MEDS: ibuprofen 600 mg Tablet PO (20:46)
[2023-03-12] MEDS: trazodone 50 mg Tablet PO (20:46)
[2023-03-12] MEDS: hyDROXYzine 25 mg Capsule 50 MG PO (20:46)
[2023-03-12] MEDS: doxepin 25 mg Capsule 75 MG PO (20:47)
[2023-03-12 21:00] VITALS: BP 148/82; PULSE 88; RESP 17; TEMP 36.2; O2SAT 95
--- NOTE | 2023-03-13 07:20 | W.PM.NPUDCS ---
Diagnoses at Discharge Discharge Diagnosis (1) Depression: Status: Inactive Qualifiers: Depression Type: unspecified Qualified Code(s): F32.9 - Major depressive disorder, single episode, unspecified (2) Anxiety disorder: Status: Acute (3) Major depressive disorder, recurrent: Status: Acute (4) Alcohol intoxication: Status: Resolved Qualifiers: Complication of substance-induced condition: uncomplicated Qualified Code(s): F10.920 - Alcohol use, unspecified with intoxication, uncomplicated (5) Suicidal ideation: Status: Resolved Reason for Visit Reason for Visit: SI Brief History: History of Present Illness Sam Marroquin is a 57 year old male who presented to the emergency department with the following report: Chief Complaint: Psychiatric Symptoms Stated Complaint: SI Time Seen by Provider: 03/08/23 16:16 Source: patient Mode of arrival: ambulatory Limitations: no limitations History of Present Illness: Patient is a 57-year-old male with past medical history of polysubstance abuse and depression who presents to the emergency department complaining of suicidal ideation onset today. Patient says he was recently seen in the emergency department for pain, and that his medications ran out and he has been in constant pain since. He also says that he hit rock bottom lately as he was kicked out of his motel and is homeless, and says that he has not eaten in 6 hours. His current plan for suicide is to take his brother's gun and blow his brains out. He states he is still feeling suicidal at this time and also endorses auditory hallucinations, stating that he can hear his mother's voice speaking to him. He denies any homicidal ideations. He says he has been on psychiatric medication in the past, but has not taken such meds in 3 years. Patient is checking in along with his who is also suicidal. They are both requesting admission to NPU. MD complaint: suicidal ideation and feels depressed Onset (ago): hour(s) Duration: constant History of same: Yes Context: significant life stressor Associated psychiatric symptoms: depression, suicidal ideation and auditory hallucinations Associated symptoms: Reports auditory hallucinations, depression and suicidal ideation; Deny visual hallucinations or homicidal ideation If self harm: admits thoughts of self harm and has plan He was admitted to the neuropsychiatric unit for definitive treatment of those issues. He presented to the emergency department with his after they had been essentially kicked out of their motel room because they ran out of money. He is known to this typewriter assembly and parts inspector through a short stay back in 2019. He had limited recollection of this typewriter assembly and parts inspector. He presents reporting that outside of that stay he denied any significant inpatient or outpatient psychiatric services. He reports that he stopped taking psychiatric medication because he felt that he did better off of it and reports she has been off of it more or less since 2018. He reports that he has been on Klonopin and Prozac in the past. He reports that they were both helpful. He reports that he smokes about a pack and a half of cigarettes a day, has alcohol every once in a while, denies marijuana because it makes him paranoid or he would use it to assist with his pain and denies cocaine methamphetamine opiates or any other illicit drug use. Going to rehab about 15 years ago and having a DUI about 20 years ago but denies any other charges. He reports that he and his are both on SSD and have been staying in a motel but it got too expensive. He reports that previously [place] and recently the sheeter machine operator increased the rent by double and so they found themselves trying to scratch by with housing which has not been successful and they have been just getting by. He reports that afterwards they were so flustered that they both came to the hospital with suicidal thoughts and he reports that he is open to restarting medication. We discussed the risks, benefits and alternatives of starting Prozac 20 mg p.o. every morning and he understood and agreed to proceed as is documented in this note. 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 He reports he has had multiple surgeries and significant pain issues after that. He reports that he has been 3 times and once he has 3 children, he has never been in the and he endorses being a Shinto. He reports he has been in longterm about 3 times the longest time for 30 days. 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 He endorses a family history of mental health issues on both sides of the family denies significant addiction but does report that there was a brother with PTSD that committed suicide at 1 point. He reports that he is the only other child that his 2 parents had together before they split up. He reports that there was some emotional abuse in his childhood but denies other abuse and does report that his mother at 1 point had given him away but then went back and got him. Per his 11/26/[address] [facility] inpatient psychiatric short stay summary: History of Present Illness Sam Marroquin is a 54 year old male Sam presented to the emergency room having just been seen several days ago for a similar presentation. It was noted, in the note of the emergency room doctor, that he was admitted secondary to concerns for lethality. Sam presents today reporting that again he was struggling with his pain and was in the midst of what would seem like routine questions, ?do you smoke,? ?have you been having any cough,? and COVID questions, and within those questions he suggests that there was a question about ?do you want to kill yourself? and he said yes, but was not even realizing the question that had been asked until they later started questioning him about it. So then when he denied it, it seemed suspicious, and he endorses that is what led to his hospitalization. He presents seeming very bright and cheerful and denying any issues. He said this is purely a misunderstanding. He denies any substantive changes in his psycho-social circumstances. He reports that he has an appointment tomorrow, as he had described when last we saw him, on 11-22-19. An excerpt from the 11-21 evaluation is included, which we reviewed, with him endorsing no significant changes. MENTAL STATUS EXAMINATION: This is an obese, white male, with adequate dress, grooming, and eye contact. No abnormal movements. Cooperative with exam in no acute distress. Speech was normal rate and volume. Mood described as pretty good; affect congruent. Thought process, organized. Thought content: patient denied any suicidal or homicidal ideation, there were no delusions reported or noted, he denied any auditory or visual hallucinations. Attention, concentration, and memory appeared intact but none were formally tested. He is alert and oriented times three. Insight and judgment appear fair. Per 11/22/[place] [facility] [place]: History of Present Illness Sam Marroquin is a 54 year old male who presents to the emergency room reporting that he had a problem with his pain getting out of control. His pain got so bad that he argues that he was having thoughts to hurt himself. He came to the emergency room for assistance with his pain, but the treatment team here has had difficulty with him in the past and was not planning on giving him any opiates. Ultimately, he decided he wanted to be discharged and because he had mentioned killing himself earlier, they wanted this typewriter assembly and parts inspector?s opinion on the case. The patient reports he no longer feels that way but ultimately, he is accepting the fact that on the of this month he has an appointment with a pain management office and hopefully there will be definitive treatment there. He denies depression or any current psychiatric issues that might warrant further hospitalization and treatment. We reviewed some of his past documentation including his last evaluation which can be seen below for some backdrop of his interface with [facility]. Per recent [facility] [place]/03/19: Consulting Physican/Specialty*: Aric Corbett MD Psychiatry Reason for Consult*: The patient wants to go home. He has been abusing alprazolam and Klonopin but now affirms that he has no intention to endanger himself thusly. Attending Physician: Morris Ramirez MD Primary Care Provider: Amber Sandoval CONTROL PANEL OPERATOR Psych Consult HPI History of Present Illness Patient is a 54-year-old male who has had multiple admissions in 2018 and recurring ER visits for chemical dependency, drug abuse, alcohol intoxication and suicidal ideation. Once again, he was found by his , who had left him sleeping in bed for 3 days. She could not arouse him and called information systems operator. He had been prescribed Xanax Klonopin doxepin gabapentin cyproheptadine quetiapine and tramadol. His acknowledged that he may have taken 60 tablets of Xanax together. He originally had hypo-saturation on room air and a Sugey Coma Scale of 12. His initial ABG showed PO2 in the 40s. He also had bilateral infiltrates suggesting pneumonia, no doubt due to 3 days of aspiration of secretions normally swallowed. He was on his way to a respiratory arrest but was medically stabilized in the ER and as an inpatient. Yesterday he was found to be much improved, after it was discovered that his had been smuggling alprazolam or some other sedating compound to him. He was put on a one-to-one and he stabilized. The nurses believe that his fluctuant level of sedation can only be explained by additional doses of some sedating compound, most likely a benzodiazepine. Hospital Course Hospital Course He slowly acclimated to the individual, group and milieu therapies provided. He presented with significant distress secondary to psychosocial stressors related mostly to finances of homelessness. We continued his home medications as well as started Prozac milligrams p.o. every morning. He has slow improvement daily. We worked with his significant other treatment team at another hospital to try to coordinate their discharge planning and make sure he had appropriate aftercare and outpatient services. He showed significant improvement during the hospitalization and was able to contract for safety outside the hospital prior to discharge. During the hospitalization, patient had routine laboratory studies which were within normal limits except for few outliers. Additionally there was a general medical evaluation which was also within normal limits and revealed no new acute processes. Discharge Summary: At the time of discharge, he denied psychosis or lethality . Mood and anxiety were well managed. Patient endorsed a plan to avoid all drugs of abuse and follow-up with the aftercare recommendations of the treatment team. Patient was evaluated and deemed to be absent credible lethality, and had achieved the maximum benefit from an inpatient hospitalization, so was discharged. Involuntary Hold Information 96 Hour Hold: 96 Hour Involuntary Admission: No 96 Hour Hold Ending Date: 12/02/19 96 Hour Hold Ending Time: 04:51 Mental Status Exam MSE Comments: This is an obese, white male, in hospital scrubs with adequate grooming, and eye contact. No abnormal movements except for mild psychomotor retardation. Cooperative with exam in no acute distress. Speech was more normal rate and volume. Mood described as a little better/more optimistic; affect congruent. Thought process, organized. Thought content: patient denied suicidal or homicidal ideation, there were no delusions reported or noted, patient denied any auditory or visual hallucinations. Attention, concentration, and memory appear intact but were not formally tested. He is alert and oriented times three. Insight and judgment are limited, impulse control was limited. Discharge Data Studies Completed and Pending: Laboratory Results WBC 7.6 10^3/uL (4.0- 10.0) 03/08/23 16:25 RBC 4.43 10^6/uL (4.1 -5.3) 03/08/23 16:25 Hgb 13.7 g/dL (11.7-1 6.6) 03/08/23 16: Hct 41.7 % (42.0-52.0 ) L 03/08/23: MCV 94.1 fl (80-94) H 03/08/23: MCH 30.9 pg (28.0-34. 0) 03/08/23: MCHC 32.9 g/dL (30.0-3 6.0) 03/08/23: RDW 13.3 % (12.1-15.1 ) 03/08/23: Plt Count 262 10^3/cmm (130 -400) 03/08/23: MPV 9.9 fL (7.4-10.4) 03/08/23: Neut % (Auto) 65.3 % 03/08/23: Lymph % (Auto) 23.4 % 03/08/23: Alexander % (Auto) 9.1 % 03/08/23: Eos % (Auto) 1.2 % 03/08/23: Baso % (Auto) 0.7 % 03/08/23: Neut # (Auto) 4.97 10^3/uL (1.8 -7.7) 03/08/23: Lymph # (Auto) 1.8 10^3/uL (0.8- 4.8) 03/08/23: Alexander # (Auto) 0.7 10^3/uL (0.2- 0.9) 03/08/23: Eos # (Auto) 0.1 10^3/uL (0.0- 0.8) 03/08/23: Baso # (Auto) 0.1 10^3/uL (0.0- 0.1) 03/08/23 Nucleated RBC % (a uto) 0 % 03/08/23 Nucleated RBCs # 0.0 /100WBC 03/08/23: Sodium 137 mmol/L (136-1 45) 03/08/23: Potassium 3.5 mmol/L (3.5-5 .1) 03/08/23: Chloride 103 mmol/L (98-10 7) 03/08/23 16:25 Carbon Dioxide 20 mmol/L (22-29) L 03/08/23 16:25 Anion Gap 17.5 (5-19) 03/08/23 16:25 BUN 27 mg/dL (6-20) H 03/08/23 16:25 Creatinine 1.4 mg/dL (0.7-1. 2) H 03/08/23 16:25 GFR Calculation 51.9 mL/min (90-1 30) L 03/08/23 16:25 Glucose 120 mg/dL (65-115 ) H 03/08/23 16:25 Calculated Osmolal ity 290 mOsm/kg (285- 295) 03/08/23 16:25 Calcium 8.9 mg/dL (8.5-10 .5) 03/08/23 16:25 Total Bilirubin 0.3 mg/dL (0.15-1 .2) 03/08/23 16:25 AST 60 U/L (0-40) H 03/08/23 16:25 ALT 38 U/L (0-41) 03/08/23 16:25 Alkaline Phosphata se 116 U/L (40-130) 03/08/23 16:25 Total Protein 6.7 g/dL (6.6-8.7 ) 03/08/23 16:25 Albumin 4.1 g/dL (3.5-5.2 ) 03/08/23 16:25 Globulin 2.6 g/dL (1.3-4.6 ) 03/08/23 16:25 Salicylates < 0.3 mg/dL (3-10 ) L 03/08/23 16:25 Urine Opiates Scre en Negative ng/mL (N egative) 03/08/23 19:15 Acetaminophen < 5.0 ug/mL (10-3 0) L 03/08/23 16:25 Ur Barbiturates Sc reen Negative ng/mL (N egative) 03/08/23 19:15 Ur Phencyclidine S crn Negative ng/mL (N egative) 03/08/23 19:15 Ur Amphetamines Sc reen Positive ng/mL (N egative) H 03/08/23 19:15 U Benzodiazepines Scrn Negative ng/mL (N egative) 03/08/23 19:15 Urine Cocaine Scre en Negative ng/mL (N egative) 03/08/23 19:15 U Marijuana (THC) Screen Positive ng/mL (N egative) H 03/08/23 19:15 Ethyl Alcohol 130 mg/dL (0-10) H 03/08/23 16:25 SARS-CoV-2 Ag (Rap id) Negative (Negati ve) 03/10/23 18:48 Vitals: Last Vital Signs Temp 97.2 F L 03/12/23 21:00 Pulse 88 03/12/23 21:00 Resp 17 03/12/23 21:00 BP 148/82 03/12/23 21:00 Pulse Ox 95 03/12/23 21:00 O2 Del Method Room Air 03/12/23 21:00 Discharge Plan Discharge Patient Disposition: Home Condition: Stable Prescriptions: New trazodone 50 mg Tablet 50 mg PO BEDTIME PRN (Reason: Sleep) 30 Days Qty: 30 1[facility] fluoxetine 20 mg Capsule 20 mg PO DAILY 30 Days Qty: 30 1RF hydroxyzine pamoate 25 mg Capsule 50 mg PO Q6H PRN (Reason: Anxiety) 30 Days Qty: 120 1RF Vitamin B-1 (mononitrate) 100 mg Tablet 100 mg PO DAILY 30 Days Qty: 30 1RF Continued fluticasone propion-salmeterol 250-50 mcg/dose blister with device 1 inh INHALATION BID albuterol sulfate 2.5 mg /3 mL (0.083 %) solution for nebulization 2.5 mg inhalation TID diclofenac sodium 75 mg tablet,delayed release (DR/EC) 75 mg PO BID PRN (Reason: Back Pain) omeprazole 20 mg Tablet,Delayed Release (Dr/Ec) 20 mg PO DAILY methocarbamol 750 mg tablet 750 mg PO TID fluticasone propionate 50 mcg/actuation spray,suspension 1 - 2 spray INTRANASAL BID PRN (Reason: UNKNOWN) Spiriva with HandiHaler 18 mcg capsule, w/inhalation device 1 cap INHALATION DAILY celecoxib 200 mg capsule 200 mg PO BID Qty: 20 0RF montelukast 10 mg tablet 10 mg PO DAILY fluticasone propionate 50 mcg/actuation spray,suspension 50 mcg INTRANASAL DAILY methocarbamol 500 mg tablet 500 mg PO TID 30 Days Qty: 90 1RF gabapentin 600 mg tablet 600 mg PO TID 30 Days Qty: 90 1RF lisinopril 20 mg tablet 20 mg PO DAILY 30 Days Qty: 30 1RF doxepin 75 mg capsule 75 mg PO BEDTIME 30 Days Qty: 30 1RF omeprazole 40 mg capsule,delayed release(DR/EC) 40 mg PO QAM 30 Days Qty: 30 1RF lovastatin 10 mg tablet 10 mg PO DAILY 30 Days Qty: 30 1RF potassium chloride 20 mEq tablet,ER particles/crystals 20 meq PO BID 30 Days Qty: 60 1RF montelukast 10 mg tablet 10 mg PO DAILY 30 Days Qty: 30 1RF Rx Instructions: pt unable to verify [facility] pharmacy filled on 11/20/2019 hydrochlorothiazide 25 mg tablet 25 mg PO DAILY 30 Days Qty: 30 1RF Discharge Orders: Discharge Order (Routine); Ordered 03/13/23 Ordered By: Alan Cornelius Referrals: [facility] [Other] - 03/13/23 [facility] [Other] - 03/21/23 1:45 pm (Initial assessment for services. Arrive 30 minutes early for paperwork) [facility] [Other] - 04/12/23 8:40 am (Psychiatry services) Discharge Diet: Regular Discharge Activity: Resume usual activity Patient Instructions: Alcohol Abuse, Alcoholism, Alcohol Withdrawal, Depression, Fluoxetine (By mouth), Trazodone (By mouth), Hydroxyzine (By mouth), Vitamin B-12 (By mouth), Help Prevent Suicide (GEN), Anxiety (DC), Suicide Prevention (GEN), Opioid Safety, Pain Management Discharge Attestations NPU Time Spent in Discharge Care*: less than 30 min Specific Discharge Activities: Specific discharge activities: educating patient, discussing with medical case manager/social workers/dc planners, documenting/other paperwork and evaluating patient/reviewing data Coding Level of Care Code Acute Chg FW DC note Diagnoses Depression F32.9 Depression Type: unspecified Anxiety disorder F41.9 Major depressive disorder, recurrent F33.9 Alcohol intoxication F10.920 Complication of substance-induced condition: uncomplicated Suicidal ideation R45.851
[2023-03-13] MEDS: thiamine 100 mg Tablet PO (07:53)
[2023-03-13] MEDS: hydroCHLOROthiazide 25 mg Tablet PO (07:53)
[2023-03-13] MEDS: lisinopril 20 mg Tablet PO (07:53)
[2023-03-13] MEDS: methocarbamol 500 mg Tablet PO (07:53)
[2023-03-13] MEDS: fluoxetine 20 mg Capsule PO (07:54)
[2023-03-13] MEDS: atorvastatin 40 mg Tablet 20 MG PO (07:54)
[2023-03-13] MEDS: pantoprazole DR 40 mg Tablet PO (07:54)
[2023-03-13] MEDS: montelukast sodium 10 mg Tablet PO (07:54)
[2023-03-13] MEDS: potassium chloride ER 20 mEq Tablet PO (07:54)
[2023-03-13] MEDS: multivitamin therapeutic Tablet 1 TAB PO (07:54)
[2023-03-13] MEDS: gabapentin 300 mg Capsule 600 MG PO (07:54)
[2023-03-13] MEDS: folic acid 1 mg Tablet PO (07:54)
--- NOTE | 2023-03-13 08:10 | DCPLANNER ---
IMM completed 03/13/23 @ 0811. Pt was given a copy of rights and he stated he understood hsi rights.
[2023-03-13 08:12] VITALS: BP 148/82; PULSE 88; RESP 17; TEMP 36.2; O2SAT 95
[2023-03-13] MEDS: nicotine 4 mg lozenge MUCOUS MEM (08:35)
== END 2023-03-13 10:14 | disposition home or self-care (01) | DRG 885 ==
LOC: ER 17:14 → NP 18:49
PROVIDERS: Physician Assistant; Admitting Provider Psychiatry & Neurology Psychiatry; Emergency Provider Nurse Practitioner Family; Visit Provider Psychiatry & Neurology Psychiatry
DX: F33.9 Major depressive disorder, recurrent, unspecified (principal); R45.851 Suicidal ideations; R44.0 Auditory hallucinations; Z81.8 Family history of other mental and behavioral disorders; F10.129 Alcohol abuse with intoxication, unspecified; Y90.6 Blood alcohol level of 120-199 mg/100 ml; Z59.00 Homelessness unspecified; Z62.811 Personal history of psychological abuse in childhood; F19.10 Other psychoactive substance abuse, uncomplicated
CPT/HCPCS: 36415; 80053; 80306; 80307; 85025; 87426; 94640; 96360; 97150; 97165; 99238; 99285; J3411; J7030; J7613; J7626

== ENCOUNTER 2023-06-01 11:44 | Emergency (ER) | payer MEDICARE, MEDICAID, SELFPAY ==
[2023-06-01 11:50] VITALS: BP 152/114; PULSE 108; RESP 16; TEMP 37.1; O2SAT 97; BMI 31.1
--- NOTE | 2023-06-01 11:56 | W.ED.GENADLT ---
HPI - General Adult General: Chief complaint: General Medical Stated complaint: needs blood pressure checked Time Seen by Provider: 06/01/23 11:50 Source: patient Mode of arrival: ambulatory Limitations: no limitations History of Present Illness: 57-year-old male who states he has been out of his blood pressure meds all his Advair and needs a refill as he does not see his PCP till next month. He has no medical complaints denies any pain anywhere. Associated symptoms: Deny chest pain, dyspnea, headache(s), nausea, rash or vomiting Review of Systems Const: Denies: fever(s), chills, body aches or change in appetite Eyes: Denies: blurry vision or eye discomfort ENMT: Denies: throat pain or dental pain Card: Denies: chest pain Resp: Denies: dyspnea GI: Denies: abdominal pain, nausea, vomiting or diarrhea Musc: Denies: neck pain or back pain Skin/Breast: Denies: rash Neuro: Denies: headache(s) PFSH ED PFSH: Medical History Alcohol abuse Altered mental status COPD (chronic obstructive pulmonary disease) Hypertension Polysubstance abuse Surgical History History of ankle surgery Social History Smoking and tobacco/nicotine status: current every day tobacco/nicotine user Alcohol intake: current Substance/Drug Use: current Current gender identity: Male Physical Exam Const: COMMON NORMALS: no acute distress, patient oriented x3 and healthy appearing Eye: COMMON NORMALS: Equal, round and reactive pupils present and EOMs intact bilaterally PUPIL: Yes Equal, round and reactive pupils present Neck/C-Spine: COMMON NORMALS: full ROM and supple Chest: COMMONS NORMALS: normal inspection of the chest Resp: COMMON NORMALS: normal respiratory effort Cardio: COMMON NORMALS: regular rate, regular rhythm and No murmurs present (Cardio) RATE: regular rate RHYTHM: regular rhythm Extremity: COMMON NORMALS: normal to inspection and full ROM Neuro: COMMON NORMALS: patient oriented x3, moves all extremities and no focal motor deficits Psych: COMMON NORMALS: mental status grossly normal, Normal thought process present and cooperative THOUGHT PROCESS: Normal thought process present Skin: COMMON NORMALS: no rashes or lesions noted and no wounds GENERAL SKIN EXAM: no rashes or lesions noted Course Vital Signs: Vital signs: Vital Signs Temperature 98.7 F 06/01/23 11:50 Pulse Rate 108 H 06/01/23 11:50 Respiratory Rate 16 06/01/23 11:50 Blood Pressure 152/114 06/01/23 11:50 Pulse Oximetry 97 06/01/23 11:50 Oxygen Delivery Me thod Room Air 06/01/23 11:50 MDM - General Adult Medical Decision Making Patient presents here with hypertension needing a med refill he has no medical complaints we will refill his blood pressure meds along with Advair he is stable for discharge to follow-up and return if worsening. Medical Records I reviewed the patient's medical records. No radiology studies performed this visit Discharge Plan Discharge Patient Disposition: Home Clinical Impression: Hypertension, Medication refill Condition: Stable Prescriptions: Continued potassium chloride 20 mEq tablet,ER particles/crystals 20 meq PO BID 30 Days Qty: 60 1RF lisinopril 20 mg tablet 20 mg PO DAILY 30 Days Qty: 30 1RF hydrochlorothiazide 25 mg tablet 25 mg PO DAILY 30 Days Qty: 30 1RF fluticasone propionate 50 mcg/actuation spray,suspension 1 - 2 spray INTRANASAL BID PRN (Reason: UNKNOWN) Qty: 2 0RF No Action fluticasone propion-salmeterol 250-50 mcg/dose blister with device 1 inh INHALATION BID albuterol sulfate 2.5 mg /3 mL (0.083 %) solution for nebulization 2.5 mg inhalation TID diclofenac sodium 75 mg tablet,delayed release (DR/EC) 75 mg PO BID PRN (Reason: Back Pain) omeprazole 20 mg Tablet,Delayed Release (Dr/Ec) 20 mg PO DAILY methocarbamol 750 mg tablet 750 mg PO TID Spiriva with HandiHaler 18 mcg capsule, w/inhalation device 1 cap INHALATION DAILY celecoxib 200 mg capsule 200 mg PO BID Qty: 20 0RF montelukast 10 mg tablet 10 mg PO DAILY fluticasone propionate 50 mcg/actuation spray,suspension 50 mcg INTRANASAL DAILY trazodone 50 mg Tablet 50 mg PO BEDTIME PRN (Reason: Sleep) 30 Days Qty: 30 1RF fluoxetine 20 mg Capsule 20 mg PO DAILY 30 Days Qty: 30 1RF hydroxyzine pamoate 25 mg Capsule 50 mg PO Q6H PRN (Reason: Anxiety) 30 Days Qty: 120 1RF Vitamin B-1 (mononitrate) 100 mg Tablet 100 mg PO DAILY 30 Days Qty: 30 1RF methocarbamol 500 mg tablet 500 mg PO TID 30 Days Qty: 90 1RF gabapentin 600 mg tablet 600 mg PO TID 30 Days Qty: 90 1RF doxepin 75 mg capsule 75 mg PO BEDTIME 30 Days Qty: 30 1RF omeprazole 40 mg capsule,delayed release(DR/EC) 40 mg PO QAM 30 Days Qty: 30 1RF lovastatin 10 mg tablet 10 mg PO DAILY 30 Days Qty: 30 1RF montelukast 10 mg tablet 10 mg PO DAILY 30 Days Qty: 30 1RF Rx Instructions: pt unable to verify [facility] pharmacy filled on 11/20/2019 Discharge Orders: Discharge ED (Routine); Ordered 06/01/23 Ordered By: Remedios Cruz Discharge Diet: Advance as tolerated Discharge Activity: Resume usual activity Patient Instructions: Hypertension (ED) Coding Level of Care Code ED Program Specialist for Gabriel Mortensen
== END 2023-06-01 12:07 | disposition home or self-care (01) ==
PROVIDERS: Emergency Provider Emergency Medicine
DX: Z76.0 Encounter for issue of repeat prescription (principal); I10 Essential (primary) hypertension; J44.9 Chronic obstructive pulmonary disease, unspecified; Z72.0 Tobacco use
CPT/HCPCS: 99283

== ENCOUNTER 2023-06-02 18:19 | Emergency (ER) | payer MEDICARE, MEDICAID, SELFPAY ==
[2023-06-02 18:44] VITALS: BP 128/82; PULSE 104; RESP 18; TEMP 36.8; O2SAT 96; BMI 31.1
--- NOTE | 2023-06-02 20:07 | XRR_ITS ---
PROCEDURE INFORMATION: Exam: XR Right Knee Exam date and time: 06/02/2023 8:15 PM Age: 57 years old Clinical indication: Right; Patient HX: RT knee pain; No known injury TECHNIQUE: Imaging protocol: Radiologic exam of the right knee. Views: 3 views. COMPARISON: No relevant prior studies available. FINDINGS: Bones/joints: Moderate-advanced degenerative changes medial knee compartment with joint space narrowing, subchondral sclerosis and marginal spurring.. Mild degenerative changes lateral knee compartment and patellofemoral joint. No fracture, dislocation or malalignment. Soft tissues: Moderate-sized joint effusion. XR/XR knee RT 3V* [id number] IMPRESSION: Moderate-advanced degenerative changes medial knee compartment with accompanying joint effusion.
--- NOTE | 2023-06-02 20:15 | XRR_ITS ---
PROCEDURE INFORMATION: Exam: XR Right Hip Exam date and time: 06/02/2023 8:22 PM Age: 57 years old Clinical indication: Right hip; Patient HX: RT hip pain; No known injury TECHNIQUE: Imaging protocol: Radiologic exam of the right hip. Views: 1 view hip with pelvis when performed. COMPARISON: CR XR hip RT 2-3V wo/w pel* [id number] 03/03/2023 9:46 PM FINDINGS: Bones/joints: Mild degenerative changes right hip joint consisting of mild joint space narrowing and subchondral sclerosis. No fracture or malalignment. Spinal hardware within the lower lumbar spine and sacrum partially visualized Soft tissues: Unremarkable. XR/XR hip RT 2-3V wo/w pel* [id number] IMPRESSION: Mild degenerative changes right hip joint. No acute bony abnormalities.
[2023-06-02] MEDS: dexamethasone 10 mg/mL INJ IM (20:33)
[2023-06-02] MEDS: ketorolac 60 mg/2 mL INJ IM (20:33)
--- NOTE | 2023-06-02 20:47 | W.ED.EXTPRO ---
HPI - Extremity Problem General: Chief complaint: Extremity Injury, Lower Stated complaint: Hip and right Knee Pain Time Seen by Provider: 06/02/23 19:56 History of Present Illness: 57 male with history of chronic hip and knee pain for about a year presents emergency room with acute exacerbation of his knee pain and knee pain within the past few days. Patient described the pain as sharp sensation with severity of 7 out of 10 especially with range of motion. Denies any direct injury or fall. He reviews that he was not evaluated at a different hospital few weeks ago and had injection to his knee which helped with the pain. Patient has any fever, chills, numbness or tingling of lower extremities. Associated symptoms: Deny fever(s) Review of Systems General: Reports: 10 or more systems reviewed and unremarkable except in HPI and below Const: Denies: fever(s), chills or body aches GI: Denies: abdominal pain, nausea, vomiting, hematemesis, coffee ground emesis or dysphagia Musc: Reports: extremity pain (right hip pain and knee pain ), extremity swelling and joint pain; Denies: joint redness, joint warmth, joint stiffness, limited range of motion, loss of height or deformity PFS ED PFSH: Medical History (Updated 06/02/23 @ 20:47 by Stephanie Brown MD) Alcohol abuse Altered mental status COPD (chronic obstructive pulmonary disease) Depression Hypertension Polysubstance abuse Surgical History History of ankle surgery Social History Smoking and tobacco/nicotine status: current every day tobacco/nicotine user Alcohol intake: current Substance/Drug Use: current Current gender identity: Male Physical Exam Const: COMMON NORMALS: no acute distress, average body habitus, patient oriented x3, no limitations, healthy appearing, alert and well nourished Chest: COMMONS NORMALS: normal inspection of the chest, normal palpation of entire chest wall, normal inspection of the breasts and normal palpation of the breasts Breast/axilla inspection: Yes normal inspection of the breasts BREAST/AXILLA PALPATION: Yes normal palpation of the breasts Resp: COMMON NORMALS: normal respiratory effort, No retractions, No use of accessory muscles, clear to auscultation bilaterally and percussion normal AUSCULTATION: clear to auscultation bilaterally PERCUSSION: percussion normal : COMMON NORMALS: Yes no CVA tenderness BLADDER/KIDNEY EXAM: Yes no CVA tenderness Back/Pelvis: COMMON NORMALS: no CVA tenderness, thoracic and lumbar spine normal to inspection, no thoracic nor lumbar tenderness, thoraco-lumbar ROM normal and straight leg raise negative bilaterally Extremity: NARRATIVE EXTREMITY EXAM: Right knee with some tenderness on palpation on the anterior aspect of the knee. Swelling but no obvious redness, no open wound or laceration. Some pain with full range of motion. Obvious deformity. Neuro: COMMON NORMALS: patient oriented x3 SENSORIUM/ORIENTATION: Yes alert Skin: COMMON NORMALS: no rashes or lesions noted, no wounds, turgor normal, no jaundice, no petechiae and no mottling GENERAL SKIN EXAM: no rashes or lesions noted and turgor normal Course Vital Signs: Vital signs: Vital Signs Temperature 98.2 F 06/02/23 18:44 Pulse Rate 104 H 06/02/23 18:44 Respiratory Rate 18 06/02/23 18:44 Blood Pressure 128/82 06/02/23 18:44 Pulse Oximetry 96 06/02/23 18:44 Oxygen Delivery Me thod Room Air 06/02/23 18:44 MDM - Extremity (Nontraumatic) Medical Decision Making Patient was made comfortable emergency room. Patient had extensive work-up including x-ray of both hip and knee. No obvious deformity or fracture/dislocation noted patient was given IM pain medication and steroid. Close follow-up PCP recommended for further evaluation and treatment. Differential Diagnosis Likely lower extremity edema (Arthritis, septic arthritis, fracture, dislocation,) Lab Data Radiology Impressions Knee X-Ray 06/02/23 20:07 IMPRESSION: Moderate-advanced degenerative changes medial knee compartment with accompanying joint effusion. Hip/Pelvis X-Ray 06/02/23 20:15 IMPRESSION: Mild degenerative changes right hip joint. No acute bony abnormalities. XR interpretation done by ED provider, pending radiology final review Discharge Plan Discharge Patient Disposition: Home Clinical Impression: Arthralgia, Arthritis Condition: Stable Prescriptions: New Medrol (Gilberto) 4 mg tablets,dose pack 4 mg PO DAILY Qty: 21 0RF tramadol 50 mg tablet 50 mg PO TID PRN (Reason: pain) Qty: 20 0RF No Action fluticasone propion-salmeterol 250-50 mcg/dose blister with device 1 inh INHALATION BID albuterol sulfate 2.5 mg /3 mL (0.083 %) solution for nebulization 2.5 mg inhalation TID diclofenac sodium 75 mg tablet,delayed release (DR/EC) 75 mg PO BID PRN (Reason: Back Pain) omeprazole 20 mg Tablet,Delayed Release (Dr/Ec) 20 mg PO DAILY methocarbamol 750 mg tablet 750 mg PO TID Spiriva with HandiHaler 18 mcg capsule, w/inhalation device 1 cap INHALATION DAILY celecoxib 200 mg capsule 200 mg PO BID Qty: 20 0RF montelukast 10 mg tablet 10 mg PO DAILY fluticasone propionate 50 mcg/actuation spray,suspension 50 mcg INTRANASAL DAILY trazodone 50 mg Tablet 50 mg PO BEDTIME PRN (Reason: Sleep) 30 Days Qty: 30 1RF fluoxetine 20 mg Capsule 20 mg PO DAILY 30 Days Qty: 30 1RF hydroxyzine pamoate 25 mg Capsule 50 mg PO Q6H PRN (Reason: Anxiety) 30 Days Qty: 120 1RF Vitamin B-1 (mononitrate) 100 mg Tablet 100 mg PO DAILY 30 Days Qty: 30 1RF methocarbamol 500 mg tablet 500 mg PO TID 30 Days Qty: 90 1RF gabapentin 600 mg tablet 600 mg PO TID 30 Days Qty: 90 1RF doxepin 75 mg capsule 75 mg PO BEDTIME 30 Days Qty: 30 1RF omeprazole 40 mg capsule,delayed release(DR/EC) 40 mg PO QAM 30 Days Qty: 30 1RF lovastatin 10 mg tablet 10 mg PO DAILY 30 Days Qty: 30 1RF potassium chloride 20 mEq tablet,ER particles/crystals 20 meq PO BID 30 Days Qty: 60 1RF montelukast 10 mg tablet 10 mg PO DAILY 30 Days Qty: 30 1RF Rx Instructions: pt unable to verify [facility] filled on 11/20/2019 lisinopril 20 mg tablet 20 mg PO DAILY 30 Days Qty: 30 1RF hydrochlorothiazide 25 mg tablet 25 mg PO DAILY 30 Days Qty: 30 1RF fluticasone propionate 50 mcg/actuation spray,suspension 1 - 2 spray INTRANASAL BID PRN (Reason: UNKNOWN) Qty: 2 0RF Discharge Orders: Discharge ED (Routine); Ordered 06/02/23 Ordered By: Stephanie Brown Discharge Diet: Advance as tolerated Discharge Activity: Resume usual activity Patient Instructions: Opioid Safety, Pain Management Coding Level of Care Code ED Decision Support Analyst for Gabriel Mortensen
== END 2023-06-02 20:56 | disposition home or self-care (01) ==
PROVIDERS: Emergency Provider Family Medicine
DX: M19.90 Unspecified osteoarthritis, unspecified site (principal); J44.9 Chronic obstructive pulmonary disease, unspecified; I10 Essential (primary) hypertension; Z72.0 Tobacco use
CPT/HCPCS: 73502; 73562; 96372; 99284; J1100; J1885